=== PATIENT | female | born 1985 | race Caucasian/White ===

== ENCOUNTER 2023-02-10 09:30 | Outpatient (RCR) | payer OTHER, SELFPAY ==
--- NOTE | 2023-02-07 14:10 | PC.NURSE ---
In- 0940 Out- 1140 Reason for visit: Latch issues and low milk supply History: mother delivered at a hospital in [place], [place]. Mother chose to come to [facility] related to it is closer to where she lives and the chosen [facility]. Mother states she was admitted for decreased movement, a decision was made to induce labor, baby's heart rate went down and after a 36 hour labor mother had an emergent section performed. Mother has a history of blood clots and was on Lovenox for a while. Mother has had hypothyroidism in the past but is not on medication at this time and states she has been good for awhile. Mother also states she worked with while inpatient. This is the feeding history over the last 24 hours. Mother breastfed 6 times, pumped 3 times and bottle fed 2 times (2oz). This is the output over the last 24 hours. has had 8 pees and 1 stool. Mother states infant did not poop for the 17th and 18th, then when he did finally poop it was a lot and all over. Mother denies green poop and states it is yellow seedy. History: will be 3 months old on Friday the and demonstrates alert behaviors that indicate that he is aware of the RN in the room. He looks around the room and is content. He appears to be well nourished and demonstrated appropriate behaviors for his age. Complete history is unclear as parents have limited information. did have separation after the section from mother. There was a weight of 7-4 and a drop in weight to 6-15. Infant was past weight at 21 days after at 8-2. last fed at 0720. Observations: Mother lays the on the david pillow and allows her to latch to the breast;however, infant doesn't latch deeply or effectively. Infant doesn't have negative suction to mother's breast. After this visual, RN demonstrates to mother how to sandwich hold her right breast and bring her infant in closer and latch deeply. Infant attempts and after a few minutes pulls back and resist latching deeply. placed upright on mother's chest and is calmed by mother while we discuss the education and questions. After is calm, RN steps back as to not distract the infant that is very alert, aware and well-nourished. Mother latches to the left breast using the sandwich technique and infant resists. There were a few more attempts and became upset so mother places infant upright and soothes. RN leaves the room to go get Pocket guide and encourages mother to attempt to latch infant deeply once is calm. When RN comes back to the room infant is latched effectively to the left breast using cross cradle positioning and mother used the sandwich hold to latch deeply. weight: 7-4 Lowest weight: 6-15 Last weight: 11.7 Saturday 02/03 Pre-feed weight: 5211 (11.8) 02/07 Post-feed weight: 5271 (60mls transferred) Discussed with mother need 2.6 oz every 2 hours. If is eating less frequently then the needs increase according to the need to gain weight. If is 8 times in 24 hours the need to supplement 3.5-4oz with the understanding that a good effective session on both breast the can transfer 60mls. We discussed that it can vary throughout the day and less milk may be expressed later in the day. Plan of Care: Mother was instructed to breastfeed 8-12 times a day (24 hour period) Mother voiced understanding what an effective looked like, felt like and could identify swallowing versus non nutritive sucking education was continued. If infant is effectively 8 times in 24 hours, then supplement 2-3 oz after . If infant is effectively 12 times in a day, then supplement 1-2 oz. If infant is bottle feeding only, then bottle feed 3-4 oz at least 8 times a day. Mother was instructed to feed until co
== END 2023-05-08 23:59 | disposition home or self-care (01) ==
LOC: ANHOBOP 09:30
PROVIDERS: PCP Internal Medicine; Visit Provider Pediatrics
DX: Z39.1 Encounter for care and examination of lactating mother (principal)
CPT/HCPCS: 99204; 99213; G0463

== ENCOUNTER 2023-05-02 18:16 | Emergency (ER) | payer OTHER, SELFPAY ==
--- NOTE | ~2023-05-02 | CT_ITS ---
EXAMINATION: CT abdomen pelvis w con DATE: 05/02/2023 19:34 INDICATION: RUQ PAIN SINCE YESTERDAY MORNING. TECHNIQUE: Computed tomography (CT) of the abdomen and pelvis was performed with 100 mL Omnipaque-350 intravenous contrast. Automated exposure control and iterative reconstruction technique were employe d. The dose-length product was 1452.25 mGy-cm. COMPARISON: None. FINDINGS: Lower thorax: Unremarkable Liver: Diffuse fatty infiltration. Enlarged. Biliary/Gallbladder: Gallbladder is collapsed. No bile duct dilation. Pancreas: Fatty infiltration. Spleen: Normal. Adrenals:No mass. Kidneys: No suspicious mass, obstructing stone, or hydronephrosis. GI tract: No small or large bowel dilation. Normal appendix. Mesentery/Peritoneum: No ascites, mass, or free air. Retroperitoneum: No mass. Pelvis: Pelvic organs are within normal limits. Soft Tissues: Soft tissues and body wall unremarkable. Bones: No acute osseous finding. IMPRESSION: Hepatomegaly, with steatosis. The gallbladder is collapsed, without cholelithiasis or surrounding inflammatory change. Otherwise unremarkable CT abdomen and pelvis findings. Reviewed, dictated and finalized at location K. DRAFTER IMPRESSION: Hepatomegaly, with steatosis. The gallbladder is collapsed, without cholelithiasis or surrounding inflammator y change. Otherwise unremarkable CT abdomen and pelvis findings.
[2023-05-02 18:16] VITALS: BP 137/87; PULSE 74; RESP 16; TEMP 36.2; O2SAT 99
--- NOTE | 2023-05-02 18:37 | ED.ABDPAIN ---
HPI - Abdominal Pain General Chief Complaint: Abdominal Pain Stated Complaint: right upper abdominal pain Time Seen by Provider: 05/02/23 18:33 Source: patient Mode of arrival: ambulatory Limitations: no limitations History of Present Illness HPI narrative: Patient is a 37 year old female with a significant PMH that presents today with abdominal pain. The pain is located in the RUQ and has been going on since yesterday morning. She states she has had this aching type of pain in the past that comes and goes randomly but it normally goes away in a few hours. She says that this time it is not going away and is getting worse. The pain is mostly in the RUQ. She says she has been able to eat and drink still but does have a little nausea. She denies any systemic symptoms. She does have a known history of a fatty liver. MD elicited complaint: abdominal pain Pertinent past history: other (fatty liver (possibly GOMEZ)) Onset (ago): day(s) Pain Consistency: constant Location: diffuse and RUQ Severity: moderate Pain scale (0-10): 5 Quality: aching and dull Radiation: none Migration to: no migration Exacerbating factors: nothing Relieving factors: nothing Associated symptoms: nausea Related Data Patient : No Allergies Allergy/AdvReac Type Severity Reaction Status Date / Time COVID-19 (SARS-CoV-2) Allergy Unknown Verified 05/02/23 18:35 vaccine, sondra Penicillins Allergy Unknown Verified 05/02/23 18:35 Sulfa (Sulfonamide Allergy Unknown Verified 05/02/23 18:35 Antibiotics) tetracycline Allergy Unknown Verified 05/02/23 18:35 Review of Systems Review of Systems: All systems reviewed & are unremarkable except as noted in HPI and below Constitutional: Constitutional: Reports no additional constitutional complaints Eyes: Eyes: Reports no additional eye complaints ENT: Reports system reviewed and no additional complaints, except as documented Cardiovascular: Cardiovascular: Reports no additional cardiovascular complaints Respiratory: Respiratory: Reports no additional respiratory complaints Gastrointestinal: Gastrointestinal: Reports abdominal pain Genitourinary: Genitourinary: Reports no additional female genitourinary complaints Musculoskeletal: Musculoskeletal: Reports no additional musculoskeletal complaints Integumentary/Breasts: Skin/Breast: Reports system reviewed and no additional complaints, except as docu Neurologic: Reports system reviewed and no additional complaints, except as documented Psychiatric: Psychiatric: Reports no additional psychiatric complaints Endocrine: Endocrine: Reports no additional endocrine complaints Hematologic/Lymphatic: Hematologic/Lymphatic: Reports no additional hematologic/lymphatic complaints Allergic/Immunologic: Allergic/Immunologic: Reports no additional allergic/immunologic complaints Exam Const: General: healthy appearing Nutritional Appearance: well nourished Orientation/consciousness: patient oriented x3 Limitations: no limitations HENMT: Head: normal to inspection Ears: external ears normal Face/Nose/Sinus: Normal external nose present Face and sinus: normal facial exam Mouth: Yes Normal oral and palatal mucosa present Teeth and gingiva: dentition normal Throat: posterior oropharynx normal Eyes: Conjunctivae: conjunctivae normal Pupils: Equal, round and reactive pupils present EOM: EOMs intact bilaterally Direct Ophthalmoscopy: no photophobia Neck: Neck: normal visual inspection Chest: Chest palpation & inspection: normal inspection of the chest Resp: Effort & Inspection: normal respiratory effort Auscultation: clear to auscultation bilaterally Cardio: Rate: regular rate Rhythm: regular rhythm GI: GI Palp: Yes Soft to palpation Auscultation: normal bowel sounds Rectal Exam: normal sphincter tone Back/Spine/Pelvis: Back: no CVA tenderness Skin: General skin exam: normal color Neuro: General: patient oriented x3 Cranial nerves: Yes N
[2023-05-02 18:50] LABS: Basophils Absolute Auto 0.04 K/mm3 (0.00-0.10); Basophils Percent Auto 0.6 % (0.0-1.0); Eosinophils Absolute Auto 0.16 K/mm3 (0.02-0.50); Eosinophils Percent Auto 2.5 % (1.0-6.0); Hematocrit 40.8 % (35.0-49.0); Hemoglobin 12.8 g/dL (12.0-15.0); Immature Granulocyte Absolute 0.01 K/mm3 (0.00-0.00); Immature Granulocyte Percent A 0.2 % (0.0-0.0); Lymphocytes Absolute Auto 2.59 K/mm3 (1.10-4.50); Lymphocytes Percent Auto 40.3 % (18.0-42.0); Mean Corpuscular HGB Conc 31.4 g/dL (32.0-36.0); Mean Corpuscular Hemoglobin 26.8 pg (27.0-31.0); Mean Corpuscular Volume 85.5 fL (78.0-102.0); Mean Platelet Volume 9.5 fl (9.2-11.8); Monocytes Absolute Auto 0.47 K/mm3 (0.10-0.90); Monocytes Percent Auto 7.3 % (2.0-11.0); Neutrophils Absolute Auto 3.2 K/mm3 (1.7-7.2); Neutrophils Percent Auto 49.1 % (50.0-70.0); Platelet Count Result 360 K/mm3 (150-420); Red Blood Count 4.77 M/mm3 (4.20-5.40); Red Cell Distribution Width 13.1 % (11.6-14.4); White Blood Count 6.4 K/mm3 (4.8-10.8)
--- NOTE | 2023-05-02 18:53 | PC.NURSE ---
attempt x2 , 1- left ac, 1 lft hand unsuccessful, report to john mueller.
[2023-05-02 18:56] LABS: Urine Pregnancy Test Negative
[2023-05-02 18:57] LABS: Pregnancy On Board Control Positive
[2023-05-02 19:00] LABS: Alanine Aminotransferase 29 U/L (14-59); Albumin Level 3.9 g/dL (3.4-5.0); Alkaline Phosphatase 106 U/L (46-116); Amylase 32 U/L (25-115); Anion Gap 10 mmol/L (8-16); Aspartate Amino Transferase 18 U/L (15-37); Bilirubin,Total 0.5 mg/dL (0.00-1.00); Blood Urea Nitrogen 17 mg/dL (7-18); Calcium 8.6 mg/dL (8.5-10.1); Carbon Dioxide 28 mmol/L (21-32); Chloride 102 mmol/L (98-108); Estimated CRCL calculation 108 ml/min; Estimated Glomerular Filt Rate > 60; Glucose 84 mg/dL (70-99); Lipase 30 U/L (16-77); Osmolality Calculated 290 mOsm/kg (285-295); Sodium 140 mmol/L (136-145)
[2023-05-02 19:05] LABS: Lactic Acid Reflex 0.9 mmol/L (0.4-2.0)
[2023-05-02] MEDS: SODIUM CHLORIDE 0.9% IV 1,000 ML 999 ML IV CONT (19:12)
[2023-05-02 20:13] VITALS: BP 114/64; PULSE 80; RESP 18; TEMP 36.5; O2SAT 99
== END 2023-05-02 20:19 | disposition home or self-care (01) ==
PROVIDERS: Emergency Provider Family Medicine; PCP Internal Medicine
DX: Q44.1 Other congenital malformations of gallbladder (principal); R10.11 Right upper quadrant pain
CPT/HCPCS: 36415; 74177; 80053; 81025; 82150; 83605; 83690; 85025; 96360; 99284; J7030; Q9967

== ENCOUNTER 2023-05-08 10:41 | Outpatient (CLI) | payer OTHER, SELFPAY ==
[2023-05-08 11:10] LABS: D Dimer 0.22 mg/L (0.19-0.50)
== END 2023-05-08 10:42 | disposition home or self-care (01) ==
LOC: CHSLAB 10:44
PROVIDERS: PCP Internal Medicine; Visit Provider Internal Medicine
DX: R60.0 Localized edema (principal)
CPT/HCPCS: 36415; 85380

== ENCOUNTER 2023-05-23 07:49 | Outpatient (CLI) | payer OTHER, SELFPAY ==
--- NOTE | ~2023-05-23 | NM_ITS ---
EXAMINATION: NM hepatobiliary wo pharm DATE: 05/23/2023 10:15 INDICATION: Right upper quadrant abdominal pain COMPARISON: 05/02/2023 TECHNIQUE: 4.9 mCi Tc-99m mebrofenin (Choletec) was administered intravenously. Scintigraphic images of the abdomen were obtained for one hour. At the 1 hour time point, the patient drank 8 oz Ensure, and imaging was continued for 60 minutes. Gallbladder ejection fraction was calculated by the technol ogist. FINDINGS: There is normal clearance of radiotracer from the blood pool. There is homogeneous tracer u ptake by the liver. Activity progresses to the bowel and gallbladder. The gallbladder ejection fract ion (GBEF) is 68%. Note that with this technique, normal GBEF >= 33%. IMPRESSION: 1. Normal hepatobiliary scan Reviewed, dictated and finalized at location A. OR C WEB DEVELOPER
== END 2023-05-23 07:50 | disposition home or self-care (01) ==
PROVIDERS: PCP Internal Medicine; Visit Provider Internal Medicine
DX: R10.11 Right upper quadrant pain (principal)
CPT/HCPCS: 78226; A9537

== ENCOUNTER 2023-06-20 13:28 | Outpatient (CLI) | payer OTHER, SELFPAY ==
--- NOTE | ~2023-06-20 | CT_ITS ---
EXAMINATION: CT soft tissue neck w con DATE: 06/20/2023 14:58 INDICATION: Left-sided neck pain and swelling and acute swelling under the tongue TECHNIQUE: Computed tomography (CT) of the neck was performed with 75 mL Omnipaque-350 intravenous co ntrast. Automated exposure control and iterative reconstruction technique were employed. The dose-david gth product was 558.50 mGy-cm. COMPARISON: None FINDINGS: Visualized portions of the orbits are normal. The visualized paranasal sinuses are clear. Visualized sinuses and mastoid aircells are well aerated. Parotid glands are normal and symmetric. There is asym metric subtle hyperemia and enlargement of the left submandibular gland when compared with the right which suggests a sialoadenitis. Thyroid gland is unremarkable. There are scattered normal-sized lymph nodes in the neck, no lymphadenopathy. No masses or abnormal fluid collections identified. The vasc ulature is patent and normal in caliber. Airway is unremarkable. Normal epiglottis. Superior mediasti num is unremarkable. Lung apices are normal. Bones are unremarkable. IMPRESSION: 1. Subtle enlargement and hyperemia of the left submandibular gland when compared with the right susp icious for sialadenitis. Reviewed, dictated and finalized at location B. HING COACH IMPRESSION: 1. Subtle enlargement and hyperemia of the left submandibular gland when compar ed with the right suspicious for sialadenitis.
[2023-06-20 13:57] LABS: Basophils Absolute Auto 0.02 K/mm3 (0.00-0.10); Basophils Percent Auto 0.4 % (0.0-1.0); Eosinophils Absolute Auto 0.15 K/mm3 (0.02-0.50); Hematocrit 42.7 % (35.0-49.0); Hemoglobin 13.1 g/dL (12.0-15.0); Immature Granulocyte Absolute 0.01 K/mm3 (0.00-0.00); Immature Granulocyte Percent A 0.2 % (0.0-0.0); Lymphocytes Absolute Auto 2.16 K/mm3 (1.10-4.50); Lymphocytes Percent Auto 42.9 % (18.0-42.0); Mean Corpuscular HGB Conc 30.7 g/dL (32.0-36.0); Mean Corpuscular Hemoglobin 25.7 pg (27.0-31.0); Mean Corpuscular Volume 83.7 fL (78.0-102.0); Mean Platelet Volume 9.1 fl (9.2-11.8); Monocytes Absolute Auto 0.39 K/mm3 (0.10-0.90); Monocytes Percent Auto 7.7 % (2.0-11.0); Neutrophils Absolute Auto 2.3 K/mm3 (1.7-7.2); Neutrophils Percent Auto 45.8 % (50.0-70.0); Platelet Count Result 330 K/mm3 (150-420)
[2023-06-20 14:22] LABS: Anion Gap 7 mmol/L (8-16); Blood Urea Nitrogen 16 mg/dL (7-18); Carbon Dioxide 31 mmol/L (21-32); Chloride 102 mmol/L (98-108); Estimated Glomerular Filt Rate > 60; Glucose 80 mg/dL (70-99); Osmolality Calculated 290 mOsm/kg (285-295); Potassium 4.1 mmol/L (3.5-5.1); Sodium 140 mmol/L (136-145)
== END 2023-06-20 13:29 | disposition home or self-care (01) ==
PROVIDERS: PCP Internal Medicine; Visit Provider Internal Medicine
DX: R59.0 Localized enlarged lymph nodes (principal)
CPT/HCPCS: 36415; 70491; 80048; 85025; Q9967

== ENCOUNTER 2023-08-14 16:40 | Outpatient (CLI) | payer OTHER, SELFPAY ==
--- NOTE | ~2023-08-14 | XR_ITS ---
EXAMINATION: XR chest 2V DATE: 08/14/2023 17:20 INDICATION: Cough. TECHNIQUE: Frontal and lateral views of the chest were obtained. COMPARISON: CT abdomen and pelvis 05/02/2023 FINDINGS: There is no pneumonia, pleural effusion, or pneumothorax. The heart size is normal. IMPRESSION: 1. No acute cardiopulmonary disease. Reviewed, dictated and finalized at location E.
[2023-08-14 17:04] LABS: Basophils Absolute Auto 0.04 K/mm3 (0.00-0.10); Basophils Percent Auto 0.4 % (0.0-1.0); Eosinophils Absolute Auto 0.12 K/mm3 (0.02-0.50); Eosinophils Percent Auto 1.1 % (1.0-6.0); Hematocrit 40.6 % (35.0-49.0); Hemoglobin 12.8 g/dL (12.0-15.0); Immature Granulocyte Absolute 0.03 K/mm3 (0.00-0.00); Immature Granulocyte Percent A 0.3 % (0.0-0.0); Lymphocytes Percent Auto 20.2 % (18.0-42.0); Mean Corpuscular HGB Conc 31.5 g/dL (32-36); Mean Corpuscular Hemoglobin 26.4 pg (27.0-31.0); Mean Corpuscular Volume 83.7 fL (78.0-102.0); Mean Platelet Volume 8.9 fl (9.2-11.8); Monocytes Absolute Auto 0.64 K/mm3 (0.10-0.90); Monocytes Percent Auto 5.9 % (2.0-11.0); Neutrophils Absolute Auto 7.87 K/mm3 (1.70-7.20); Neutrophils Percent Auto 72.1 % (50.0-70.0); Platelet Count Result 350 K/mm3 (150-420); Red Blood Count 4.85 M/mm3 (4.20-5.40); Red Cell Distribution Width 13.2 % (11.6-14.4); White Blood Count 10.9 K/mm3 (4.8-10.8)
== END 2023-08-14 16:41 | disposition home or self-care (01) ==
PROVIDERS: PCP Internal Medicine; Visit Provider Internal Medicine
DX: R05.9 Cough, unspecified (principal)
CPT/HCPCS: 36415; 71046; 85025

== ENCOUNTER 2024-04-02 20:19 | Emergency (ER) | payer OTHER, SELFPAY ==
[2024-04-02 20:20] VITALS: BP 133/99; PULSE 87; RESP 18; TEMP 36.3; O2SAT 99
--- NOTE | 2024-04-02 20:39 | ED.SKABFB ---
HPI - Skin/Abscess/Foreign Bdy General Chief complaint: Skin/Abscess/Foreign Body Stated complaint: breast pain- pumping Time Seen by Provider: 04/02/24 20:24 Source: patient Mode of arrival: ambulatory Limitations: no limitations History of Present Illness HPI narrative: Patient is a 38-year-old female with significant past medical history presents today for possible mastitis. Patient believes that she might have mastitis and a left breast. She is and pumping for 17 months. She says that she is starting to have some pain on the left side of the left breast. She says she does not think there is much redness but it is starting to become a little bit painful. She denies any fevers or systemic symptoms. She says she is trying to wean off breast-feeding and now is only pumping once a day. MD complaint: other ( Painful left nipple) Onset (ago): day(s) Tetanus up to date: yes Severity: moderate Severity scale (1-10): 4 Quality: aching and sharp Pain Consistency: intermittent Relieving factors: none Exacerbating factors: none Context: none Associated symptoms: denies other symptoms Treatments prior to arrival: none Related Data Home Medications ?Medication ?Instructions ?Recorded ?Confirmed ?Last Taken ?Type albuterol sulfate 90 mcg/actuation inhalation PRN 04/02/24 Unknown History aerosol inhaler azithromycin 250 mg tablet mg 04/02/24 04/02/24 History Allergies Allergy/AdvReac Type Severity Reaction Status Date / Time COVID-19 (SARS-CoV-2) Allergy Unknown Verified 05/02/23 18:35 vaccine, sondra Penicillins Allergy Unknown Verified 05/02/23 18:35 Sulfa (Sulfonamide Allergy Unknown Verified 05/02/23 18:35 Antibiotics) tetracycline Allergy Unknown Verified 05/02/23 18:35 Review of Systems Review of Systems: All systems reviewed & are unremarkable except as noted in HPI and below Constitutional: Constitutional: Reports no additional constitutional complaints Eyes: Eyes: Reports no additional eye complaints ENT: Reports system reviewed and no additional complaints, except as documented Cardiovascular: Cardiovascular: Reports no additional cardiovascular complaints Respiratory: Respiratory: Reports no additional respiratory complaints Gastrointestinal: Gastrointestinal: Reports no additional gastrointestinal complaints Genitourinary: Genitourinary: Reports no additional female genitourinary complaints Musculoskeletal: Musculoskeletal: Reports no additional musculoskeletal complaints Integumentary/Breasts: Skin/Breast: Reports as per HPI and Reports breast pain Neurologic: Reports system reviewed and no additional complaints, except as documented Psychiatric: Psychiatric: Reports no additional psychiatric complaints Endocrine: Endocrine: Reports no additional endocrine complaints Hematologic/Lymphatic: Hematologic/Lymphatic: Reports no additional hematologic/lymphatic complaints Allergic/Immunologic: Allergic/Immunologic: Reports no additional allergic/immunologic complaints Exam Const: General: healthy appearing Nutritional Appearance: well nourished Orientation/consciousness: patient oriented x3 HENMT: Head: normal to inspection Ears: external ears normal Face/Nose/Sinus: Normal external nose present Face and sinus: normal facial exam Eyes: Conjunctivae: conjunctivae normal Pupils: Equal, round and reactive pupils present EOM: EOMs intact bilaterally Neck: Neck: normal visual inspection Chest: Chest palpation & inspection: tenderness ( left nipple on the left side) Resp: Effort & Inspection: labored Auscultation: clear to auscultation bilaterally Cardio: Rate: regular rate Rhythm: regular rhythm GI: GI Palp: Yes Soft to palpation : General: Yes bladder normal to palpation Back/Spine/Pelvis: Back: no CVA tenderness Skin: General skin exam: normal color Rashes: no rashes Wounds: no wounds Neuro: General: patient oriented x3 Cranial nerves: Yes Nystagmus not present Extrem: General: normal to inspection Psych: Mental Status: mental status grossly normal Affect: normal affect Course Vital Signs Vital signs: Vital Signs Temperature 97.3 F L 04/02/24 20:20 Pulse Rate 87 04/02/24 20:20 Respiratory Rate 18 04/02/24 20:20 Blood Pressure 133/99 H 04/02/24 20:20 Pulse Oximetry 99 04/02/24 20:20 Oxygen Delivery Room Air 04/02/24 20:20 Temperature 97.3 F L 04/02/24 20:20 Pulse Rate 87 04/02/24 20:20 Respiratory Rate 18 04/02/24 20:20 Blood Pressure 133/99 H 04/02/24 20:20 Pulse Oximetry 99 04/02/24 20:20 Oxygen Delivery Room Air 04/02/24 20:20 MDM - Skin/Abscess/Foreign Bdy MDM Narrative Medical decision making narrative: patient thinks that she might have mastitis however looking at it and inspected the area and palpating there is of signs mastitis. There is though currently has again no dry skin and now erythema. No signs of mastitis whatsoever. However there probably is a clogged duct. Especially coming off of doing so much of the pumping to light once today. discussed with her to put cost on multiple times a day to help work up the clogged ducts. Differential Diagnosis Differential diagnosis: Likely other ( Block duct) Medical Records Attestation: I reviewed the patient's medical records. Lab Data Attestation: I reviewed the patient's lab results. Discharge Plan Discharge Clinical Impression: Occlusion of breast duct Patient Disposition: Home, Self-Care Condition: Stable Instructions: and Plugged Ducts (ED) Patient Language: Mongolian Follow-up/Referrals: UNKNOWN,DOCTOR [Non-Staff] - Time of Disposition: 20:59
[2024-04-02 21:02] VITALS: BP 130/85; PULSE 85; RESP 18; TEMP 36.8; O2SAT 100
--- OUTSIDE RECORDS SUMMARY | 2024-04-06 14:32 | XMS_ITS | Continuity of Care Document ---
Author Name [facility] Organization [facility] Care Team Providers Care Learning Consultant Name Role Phone [facility] Unavailable Unavailable Problems Combined list of problems from Department of Defense and Veterans Affairs facilities. It does not include entries that were removed or entered in error. Problem Status Onset Date Problem Type Date of Resolution Comments Source Patient Counseling: Inquiry & Counseling Active Condition [facility] drowsiness [Sx] Active Condition [facility] allergic rhinitis Active Condition [facility] bursitis trochanteric Active Condition [facility] upper respiratory infection acute Inactive Condition [facility] Contraceptives Active Condition [facility] limb pain Active Condition [facility] visit for: administrative purpose Inactive Condition [facility] visit for: issue repeat prescription Inactive Condition [facility] dermatitis Inactive Condition [facility] blurry vision Inactive Condition [facility] atopic dermatitis Inactive Condition [facility] Administrative Evaluation Services Inactive Condition [facility] dyshidrosis Inactive Condition [facility] visit for: screening exam STD Inactive Condition [facility] visit for: screening exam for malignant neoplasm cervix Inactive Condition [facility] routine gynecological exam Inactive Condition [facility] other specified viral disease Inactive Condition [facility] obesity Active Condition [facility] Other Physical Therapy Inactive Condition [facility] Medications Combined list of outpatient medications from Department of Defense and Veterans Affairs facilities.Medications provided include 1) outpatient medications from the last 15 months, and 2) patient-reported medications. Medication Details Route Status Patient Instructions Prescription Expires Prescription Number Last Dispense Date Ordering Provider Order Date Order Qty Source ALBUTEROL SULFATE HFA (albuterol sulfate), 90 MCG, HFA AER AD, INHALATION, [facility], 18 g CANISTER Active [id number] 2023 18 Pharmac y Data Transac tion Service Facilit y azithromyci n 250 mg oral tablet 0 total refill(s ) Discont inued 02/08/2020 No Facilit y Access CEPHALEXIN (CEPHALEXIN ), 750 MG, CAPSULE, ORAL, [facility], 20 ea. BOTTLE Active [id number] 2023 14 Pharmac y Data Transac tion Service Facilit y clindamycin 300 mg oral capsule 0 total refill(s ) Discont inued 02/08/2020 No Facilit y Access codeine-gua ifenesin 10 mg-100 mg/5 mL oral syrup codeine- guaifene sin 10 mg-100 mg/5 mL oral syrup Start Date: 03/24/19 Stop Date: 02/08/20 Status: Disconti nued Discont inued 02/08/2020 No Facilit y Access cyclobenzap rine 10 mg oral tablet cycloben zaprine 10 mg oral tablet Start Date: 04/30/19 Stop Date: 02/08/20 Status: Disconti nued Discont inued 02/08/2020 No Facilit y Access fluticasone 50 mcg/inh nasal spray fluticas one 50 mcg/inh nasal spray Start Date: 07/08/19 Stop Date: 02/08/20 Status: Disconti nued Discont inued 02/08/2020 No Facilit y Access FLUTICASONE -SALMETEROL (fluticason e propionate/ salmeterol xinafoate), 250-50 MCG, BLST W/DEV, INHALATION, [facility]/ [facility], 60 ea. BLIST PACK Active [id number] 4 2023 60 Pharmac y Data Transac tion Service Facilit y LEVOFLOXACI N (levofloxac in), 750 MG, TABLET, ORAL, [facility], 20 ea. BOTTLE Active [id number] 2023 7 Pharmac y Data Transac tion Service Facilit y METHYLPREDN ISOLONE (METHYLPRED NISOLONE), 4 MG, TAB DS PK, ORAL, [facility], 21 ea. BLIST PACK Active [id number] 2023 21 Pharmac y Data Transac tion Service Facilit y Xarelto 15 mg tablet See Rx Instruct ions, # 42 EA, 0 total refill(s ), Hard Stop Complet ed 12/05/2021 42.0 Ambulat ory Pharmac y Xarelto 20 mg tablet See Rx Instruct ions, Oral, # 9 EA, 0 total refill(s ), Hard Stop Oral (given by mouth) Complet ed 12/05/2021 9.0 Ambulat ory Pharmac y Allergies, Adverse Reactions, Alerts Combined list of allergies from Department of Defense and Veterans Affairs facilities. It does not include entries that were removed or entered in error. Substance Category Reaction Severity Reaction type Status Date Reported Comments Source penicillins Propensity to adverse reactions to substance Rash Active 3 [facility] PENICILLINS {Cla } Drug allergy (disorder) Rash [facility] [place] sulfa drugs Propensity to adverse reactions to substance Vomiting Active 3 [facility] SULFA-DRUGS {Cla } Drug [facility] (disorder) [facility] Propensity to adverse reactions to substance Vomiting Active 3 [facility] TETRACYCLINE (TETRACYCLINE ) Drug allergy (disorder) Vomiting active 3 [facility] Alisha [place] Immunizations Combined list of available immunizations from the Department of Defense and Veterans Affairs facilities. 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 Vital Sign Value Date Comments Source No data available for this section Ambulatory Pharmacy Encounters Combined list of: 1) Encounters from Department of Veterans Affairs facilities going back up to thelast 18 months. 2) Encounters from the Department of Defense facilities going back up to 280 months. Location Location Details Encounter Type Encounter Number Reason For Visit Attending Provider ADM Date DC Date Status Disposition Source [facility]) OUTPATIENT [id number] BRYCE JERNIGAN 06/13 Released w/o Limitations [facility] Phys[facility] ) [facility] OUTPATIENT [id number] CALEB GUNTER 07/03 Released w/o Limitations [facility] ) [facility] OUTPATIENT [id number] KEYANNA GIL 07/07 Released w/o Limitations [facility] ) [facility] OUTPATIENT [id number] KEYANNA GIL 07/09 Released w/o Limitations [facility] ) [facility] [facility] [place] OUTPATIENT [id number] new pt NAOMI THORPE 12/03 Released w/o Limitations [facility] [place] [facility] [facility] [place] OUTPATIENT [id number] [facility]/KYRA David 12/04 Released w/o Limitations [facility] [place] [facility] [facility] [place] OUTPATIENT [id number] bilat hand rash ILA NAOMI W 01/21 Released w/o Limitations [facility] [place] [facility] [facility] [place] [id number] Notes Entered by: MARY BETH MACKENZIE 04 Feb [id number] ------- ------- ------- ------- -- BLURRY VISION BOTH EYES/WO RSENING ECZEMA ANDERSON FAN 02/05 Released w/o Limitations [facility] [facility] [place] OUTPATIENT [id number] f/u [facility] KYRA MIDDLETON 02/08 Released w/o Limitations [facility] [place] [facility] [facility] [place] TELE CONSULT [id number] Notes Entered by: Fatmata BENITEZ 01 Mar 2013 1018 ------- ------- ------- ------- -- Med Request PATRICIA AKBAR 03/01 [facility] [place] [facility] [facility] [place] TELE CONSULT [id number] Notes Entered by: MAXI POSADA 16 Mar 2013 1402 ------- ------- ------- ------- -- F/U NO SHOW 26NOV MAXI POSADA 03/16 [facility] [place] [facility] [facility] [place] OUTPATIENT [id number] lt hip pain NAOMI THORPE 03/26 Released w/o Limitations [facility] [place] [facility] OUTPATIENT [id number] limb pain MARTIN VALENCIA 04/23 Released w/o Limitations [facility]) [facility] [facility] [place] OUTPATIENT [id number] product sofiya cough x4days/ back/hi p pain/re fill BCP NAOMI THORPE W 06/15 Released w/o Limitations [facility] [place] [facility] Ref[place] TELE CONSULT [id number] Notes Entered by: Reese MORRIS 25 Jun 2013 0919 ------- ------- ------- ------- -- DERM Order#: [id number] BRANDON MORRIS 06/25 [facility] [facility] [place] OUTPATIENT [id number] f/u bronchi tis NAOMI THORPE W 07/02 Released w/o Limitations [facility] [place] [facility] Ref[place] TELE CONS[place] [id number] Notes Entered by: STEVEN HADDAD 20 Jul 2013 0832 ------- ------- ------- ------- -- DERMATO OSCAR GUPTA 07/20 [facility] [facility] [place] OUTPATIENT [id number] PHYS NICKI SIMON([facility] 08/13 Released w/o Limitations [facility] [place] [facility] [facility] [place] TELE CONSULT [id number] Notes Entered by: LAUREN OG 06 Sep 2013 1529 ------- ------- ------- ------- -- Lab results PATRICIA AKBAR 09/06 [facility] [place] [facility] Ref[place] TELE CONSULT [id number] Notes Entered by: ARI HARTMAN 09 Nov 2013 1451 ------- ------- ------- ------- -- Order#: [id number] SLEEP STUDY FOLLOW UP YENIFER HARTMAN 11/09 [facility] TELE CONSULT [id number] Notes Entered by: IMAN GARCIA 12 Nov 2013 1434 ------- ------- ------- ------- -- [facility] ASTHMA/ BRONCHI TIS DOS 2013 ROSELIA GARCIA 11/12 [facility] [facility] [place] OUTPATIENT [id number] R SHOULDE R PAIN X 4WK NICKI SIMON([facility] 11/17 Released w/o Limitations [facility] [place] [facility] Ref[place] TELE CONSULT [id number] Notes Entered by: ARI HARTMAN 16 Feb 2014 1438 ------- ------- ------- ------- -- FAMILY DERMATO LOGY SKIN EXAMINA TION/FO LLOWUP DERMATI TIS DOS [id number] YENIFER HARTMAN 02/16 [facility] [facility] [place] OUTPATIENT [id number] WWE/NICKI JERONIMO([place]) 03/09 Released w/o Limitations [facility] [place] [facility] OUTPATIENT [id number] OBESITY CHAIM FERNANDEZ([place]) 03/21 Released w/o Limitations [facility] Ref[place] TELE CONSULT [id number] Notes Entered by: DEVANARI Isidoro 26 May 2014 1138 ------- ------- ------- ------- -- [facility] SLEEP STUDY CONSULT DOS [id number] YENIFER HARTMAN 05/26 Other Not Elsewhere Classified [facility] [facility] [place] OUTPATIENT [id number] sore throat, cough, loss of voice NICKI SIMON([place]) 05/30 Released w/o Limitations [facility] [place] [facility] [facility] [place] TELE CONSULT [id number] Notes Entered by: LAUREN OG OLE 31 May 2014 1117 ------- ------- ------- ------- -- Lab results SIGIFREDO BATRES 05/31 [facility] [place] [facility] [facility] [place] TELE CONSULT [id number] Notes Entered by: LAUREN OG OLE 07 Jun 2014 0736 ------- ------- ------- ------- -- STEW ESTHER Patterson 06/07 Other Not Elsewhere Classified [facility] [place] [facility] [facility] [place] TELE CONSULT [id number] Notes Entered by: LAUREN OG OLE 01 Jul 2014 1513 ------- ------- ------- ------- -- ESTHER Katz 07/01 Other Not Elsewhere Classified [facility] [place] [facility] Ref[place] TELE CONSULT [id number] Notes Entered by: Jordan BUENO 07 Jul 2014 1124 ------- ------- ------- ------- -- DERMATO LOGY FOLLOW UP RESULTS DOS 5 SUSHILA BUENO 07/07 Other Not Elsewhere Classified [facility] OUTPATIENT [id number] Childbi rth class ROBERT GOETZ E 06/26 Released w/o Limitations [facility] [id number] Childbi rth Educati on ROBERT GOETZ E 06/29 Released w/o Limitations [facility] OUTPATIENT [id number] Childbi rth Educati on ROBERT GOETZ E 07/09 Released w/o Limitations [facility] OUTPATIENT [id number] Childbi rth Educati on ROBERT GOETZ E 07/13 Released w/o Limitations [facility] OUTPAT[facility] [id number] Notes Entered by: CALLY WALLISNICKY FRANKELLYNDSAY Bland 28 Jul 2015 1432 ------- ------- ------- ------- -- Childbi rth Educati on class 1 GOETZ ROBERT Edwina 07/27 Released w/o Limitations [facility] OUTPATIENT [id number] Childbi rth Educati on Class 4 ROBERT GOETZ E 08/29 [facility] Limitations [facility] Procedures Combined list of: 1) Procedures from Department of Veterans Affairs facilities going back up to thelast 18 months, not all VA non-surgical procedures are included; 2) All procedures from the Department of Defense facilities. Procedure Procedure Type Code Date Perfomer Comments Sourc e Physician Supervised Group Educational Services Physician Supervised [facility] Educational Services [phone] GOETZ, ROBERT Edwina [facility] Physician Supervised Group Educational Services Physician Supervised [employer] Educational Services [phone] GOETZPREM OSEGUERAEEN Edwina [facility] Physician Supervised [facility] Educational Services Physician Supervised [facility] Educational Services [phone] GOETZ, ROBERT Edwina [facility] Physician Supervised [facility] Educational Services Physician Supervised [employer] Educational Services [phone] GOETZNICKY OSEGUERAHLEEN Edwina [facility] Physician Supervised [facility] Educational Services Physician Supervised [employer] Educational Services [phone] GOETZ, ROBERT Edwina [facility] Physician Supervised Group Educational Services Physician Supervised Group Educational Services [phone] Jose F GOETZ ROBERT Edwina [facility] Therapy Initial A e ment And Intervention Each 15 Minutes Medical Nutrition Therapy Initial Assessment And Intervention Each 15 Minutes [phone] CHAIM FERNANDEZ([place]) Obesity related to food and nutrition knowledge deficit as evidenced by her diet recall and BMI of 37. Nutrition Rx: balanced meal plan, 1500 calories/day to promote 1/2-1# per week. Initial goal of losing 10#, 5% weight loss. Education on weight loss strategies through meal planning, timing of meals, plate method of portioning, healthy snacks, serving sizes and numbers, and ways to increase her fruit and vegetable intake. Nutrition Plan: --avoid skipping of meals, goal of 3 meals and 2-3 smaller snacks --bring portable, healthy snacks to work, add vegetables to her lunch, snack on veggies end of her day so she isn't so hungry when getting home from work. --avoid the late night fast food. Encouraged her to talk with her about meal planning ideas --30 minutes of exercise 5x/wk Temi verbalized understanding but still finds difficulty with nutrition changes given her very busy job. Encouraged her to try changes because she actually may feel less tired with more balance in ther diet. [facility] Non-Physician Phone Call To Patient/Provide r Brief (5-10min) Non-Physician Phone Call To Patient/Provide r Brief (5-10min) [phone] PATRICIA AKBAR [facility] Non-Physician Phone Call To Patient/Provide r Brief (5-10min) Non-Physician Phone Call To Patient/Provide r Brief (5-10min) [phone] MAXI POSADA [facility] Screening papanicolaou smear; obtaining, preparing and conveyance of cervical or vaginal smear to laboratory 013 KYRA [place] DoD PT A e ment Kinetic Training PT Assessment Kinetic Training [phone] JESSE VIDAL DoD A isted Exercises For ROM Assisted Exercises For ROM [phone] JESSE VIDAL DoD PT A e ment Kinetic Training PT Assessment Kinetic Training [phone] JESSE VIDAL LDavid DoD A isted Exercises For ROM Assisted [place] [phone] JESSE VIDAL DoD PT A e ment Kinetic Training PT Assessment Kinetic Training [phone] JESSE VIDAL DoD A isted Exercises For ROM Assisted [place] [id number] JESSE VIDAL [facility] Physical Therapy Service Evaluation Physical Therapy Service Evaluation [phone] BRYCE JERNIGAN [facility] THERAPEUTIC ACTIVITIES, DIRECT (ONE-ON-ONE) PATIENT CONTACT (USE OF DYNAMIC ACTIVITIES TO IMPROVE FUNCTIONAL PERFORMANCE), EACH 15 MINUTES [facility] THERAPEUTIC ACTIVITIES, DIRECT (ONE-ON-ONE) PATIENT CONTACT (USE OF DYNAMIC ACTIVITIES TO IMPROVE FUNCTIONAL PERFORMANCE), EACH 15 MINUTES [facility] THERAPEUTIC ACTIVITIES, DIRECT (ONE-ON-ONE) PATIENT CONTACT (USE OF DYNAMIC ACTIVITIES TO IMPROVE FUNCTIONAL PERFORMANCE), EACH 15 MINUTES [facility] THERAPEUTIC PROCEDURE, 1 OR MORE AREAS, EACH 15 MINUTES; THERAPEUTIC EXERCISES TO DEVELOP STRENGTH AND ENDURANCE, RANGE OF MOTION AND FLEXIBILITY [facility] PHYSICAL THERAPY EVALUATION [facility] PHYS/OTH QUALIFIED HEALTH MOVING VAN DRIVER QUALIFIED,EDUCA TINO,TRAIN,LICE NSRADHA/REGULATIO N (WHEN APPLICABLE) EDUC SER RENDERED TO PATS IN A GRP SETTING (EG,,OB ESITY,OR DIABETIC INSTRUCT) 016 [facility] PATIENT EDUCATION, NOT OTHERWISE CLASSIFIED, NON-PHYSICIAN PROVIDER, GROUP, PER SESSION 016 [facility] PHYS/OTH QUALIFIED HEALTH MOVING VAN DRIVER QUALIFIED,EDUCA TION,TRAIN,LICE NSURE/REGULATIO N (WHEN APPLICABLE) EDUC SER RENDERED TO PATS IN A GRP SETTING (EG,,OB ESITY,OR DIABETIC INSTRUCT) 016 [facility] PHYS/OTH QUALIFIED HEALTH MOVING VAN DRIVER QUALIFIED,EDUCA TION,TRAIN,LICE NSURE/REGULATIO N (WHEN APPLICABLE) EDUC SER RENDERED TO PATS IN A GRP SETTING (EG,,OB ESITY,OR DIABETIC INSTRUCT) 016 [facility] PHYS/OTH QUALIFIED HEALTH MOVING VAN DRIVER QUALIFIED,EDUCA TION,TRAIN,LICE NSURE/REGULATIO N (WHEN APPLICABLE) EDUC SER RENDERED TO PATS IN A GRP SETTING (EG,,OB ESITY,OR DIABETIC INSTRUCT) 016 [facility] MEDICAL NUTRITION THERAPY; INITIAL ASSESSMENT AND INTERVENTION, INDIVIDUAL, UAII-UH-ASSS WITH THE PATIENT, EACH 15 MINUTES 014 [facility] TELE ASSESS & MGT SRV PROV QUAL NONPHYS HLTH CARE PRO TO EST PAT,PARENT,GUAR D NOT ORIG REL ASSESS & MGT SRV PROV W/IN PREV 7 DAYS NOR LEAD ASSESS & MGT SRV/PX W/IN NXT 24 HR/SOON APT;5-10 MIN MED DIS 014 [facility] TELE ASSESS & MGT SRV PROV QUAL NONPHYS HLTH CARE PRO TO EST PAT,PARENT,GUAR D NOT ORIG REL ASSESS & MGT SRV PROV W/IN PREV 7 DAYS NOR LEAD ASSESS & MGT SRV/PX W/IN NXT 24 HR/SOON APT;5-10 MIN MED DIS 013 [facility] No data available for this section Ambulatory Pharmacy Social History Combined list of available smoking, tobacco, and other social history from Department of Defense and Veterans Affairs facilities. Social History Type Response Date Comment Sourc e This section is an empty soc ial history section. DoD Sexual Orientation Ambula tory Pharmacy Gender identity Ambulator y Pharmacy Female Ambulatory Pha rmacy Assessment and Plan Combined list of future care activities from Department of Defense and Veterans Affairs facilities (e.g., assessment and plan notes, appointments, orders, and referrals). Additional future care activities may be listed in the Plan of Care section. Result Assessment and Plan Date Source Assessment and Plan Extracted from:Title : PCS Screen Author: ESTELA GARCIA Date: 02/08/20 1.?Administrative statuses 34 yo Dependent presents for screening to [facility] ? Not seen in medical system. PMHX: 1. alpha 1 antitrypsin deficiency Monitored by GI and Pulm but stable not requiring any medications or interventions. ? Called patient who provided name and date of for confirmation. Patient's medical history and medications have been reviewed and updated. Phone conversation lasted approximately 10 minutes. Patient well versed in her screenings, but no interventions or specialty care needed at this time. She understands specialists are in [place] over an [place] drive. ? ? CLEARED FOR PCS ? Ordered: Unlisted Evaluation and Management Service [id number] ? 04/06/2024 Ambulatory Pharmacy Functional Status Combined list of recent functional and cognitive assessments recorded at Department of Defense and Veterans Affairs (VA).VA Functional Pine Measurement (FIM) Scale: 1 = Total Assistance (Subject = 0% +), 2 = Maximal Assistance (Subject = 25% +), 3 = Moderate Assistance (Subject = 50% +), 4 = Minimal Assistance (Subject = 75% +), 5 = Supervision, 6 = Modified Pine (Device), 7 = Complete Pine (Timely, Safely). Assessment Date/Time Source Assessment Type Assessment Skill Assessment Score Assessment Details No data available for this section
--- OUTSIDE RECORDS SUMMARY | 2024-04-06 14:32 | XMS_ITS | Data Portability ---
Author Organization [facility], [address] Neurology ([place]) Address [address] 4th [place] [address] Care Team Providers Care Automobile Service Writer Name Role Phone AKUA CHAND Stringed Instrument Tuner JUAN GOOD Childbirth And Infant Care Teacher JAMIE NOVAK Primary Care Provider [phone] Assessment Encounter Date Assessment Date Assessment LastModified by Organization Details LastModified Time 12/17/2023 12/17/2023 Ms. 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 ## Advanced hepatic steatosis and possibly early fibrosis -- The patient and I discussed the importance of diet and exercise in the management of fatty liver disease. She has a goal of losing about four pounds a month through diet and exercise. Unfortunately, she does not quality for GOMEZ trial we are running as she does not have enough fibrosis on her FibroScan and I informed her of that today. She will be due for an ultrasound at this time to follow up on her cavernous hemangioma and she will have lab work in about six months as well. I personally spent a total of 25 minutes on the patient on this date of service including both iedz-qu-sjtc and tfp-wisu-we-face time excluding any separately reportable services. dll [email or web address] Not available 12/17/2023 20:47:49 01/27/2024 01/27/2024 Annual exam. Pap smear obtained today with high risk HPV typing and patient will be informed of results. Instructed on monthly self breast exam. 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 Tdap was administered in 2022 and hepatitis C antibody testing was nonreactive in 2022. Due to papules to her vulva, I instructed for her to use antibacterial Dove bar soap when bathing. If no improvement she is to call the office. Informed patient that her exam was within normal limits today. Partners in prevention. Form provided to patient. Hereditary cancer risk assessment was performed today with normal findings. She is encouraged to update her non-gynecological preventative screenings and immunizations with her PCP. Instructed on diet and exercise to promote weight loss. Patient will return in 1 year for annual VISION TEACHER exam or sooner if needed. meena Not available 01/27/2024 22:27:46 Plan of Treatment Reminders Order Date Submit Date Provider Last Modified By Organization Details Last Modified Time Details Appointments Establish ed Patient 15.EST 2024 09:30A M Dr. Akua Chand Not available Not available Not available Annual Well Woman Visit 20.EST 2024 11:00A M Dr. Juan Good Not available Not available Not available Lab Pap test, slide(s), cervical 2023 024 [email or web address] 1 Sc Only - Mo Laboratory, [facility], [address], 03/10/2024 09:24:27 Referral None recorded. Procedures None recorded. Surgeries None recorded. Imaging US, abdomen, limited 2023 024 [email or web address] Sc Only - Sc Radiology, [address] [place] [address], [id number], 12/18/2023 09:51:23 MAMMO, screening , digital, bilateral 2023 024 PORTAL Sc Only - Sc Radiology, [facility] [place] [address], [id number], 03/30/2024 17:45:36 Medication Orders None recorded. Patient TargetsNo targets recorded. Patient InstructionsNo instructions recorded. Reason for Referral None Reported. Results Created Date Observation Date Name Description Value Unit Range Abnormal Flag Note LastModifiedBy Organization Detail LastModifiedTime 01/27/2001/27/2024 GYNEC OLOGI C CYTOL OGY REPOR T police manager/aC Perfo rmed at: [facility] Order ing Provi sherif: Eliezer tanner, Kasey n Marialuisa nt Name: TED TESFAYE RD Acczak fito #: [id number] /A ge/Ge nder: 984 (Age: 38) / F Proce dure Date: 2023 SP ECIME N RECEI ANEGLINA * SureP ath HPV DNA with Pap, Cervi [place]/E ndoce rvica l Speci men Adequ acy Satis facto ry for evalu ation Endoc ervic al cell/ trans forma tion zone compo nent prese nt Cytol ogic Diagn osis Negat maggie for intra epith elial lesio n or lisbet elder EL ECTRO NICAL LY VERIF IED BY ANGELA RAPP (ASCP ) 02/02 11:54 HPV Testi ng Date Order ed: 01/29 Date Repor iram: 02/01 14:48 Inter preta tion NEGAT MAGGIE for high risk types of HPV Test Infor matio n Human Papil lomav irus (HPV) testi ng perfo rmed using the Spike Diagn ostic s fredi 4800 HPV Test (Roch e Molec ular Syste ms, [facility] , [facility] ). The fredi HPV Test is a polym erase chain react ion (PCR) -base d DNA ampli ficat ion test that simul taneo usly ident ifies a morrison d resul t for 12 HR HPV types (HPV- 31, 33, 35, 39, 45, 51, 52, 56, 58, 59, 66 and 68) and indiv idual resul ts for HPV-1 6 and HPV-1 8. High Risk HPV types are assoc iated with cervi georgia carci noma and its predi sposi ng lesio ns: cervi [place]orgia atypi a and high grade squam ous intra epith elial lesio n (mode rate and sever e dyspl viral, carci noma in situ/ MILE 2 and MILE 3). The U.S. Food and Drug Admin istra tion (FDA) has appro angelina this test for use with SureP ath speci mens. The perfo rmanc e maxx cteri stics of this test were verif ied by the [facility] ([facility] [place] [facility] [place] [facility]). [facility] is autho rized under [facility]ini [place] [facility]ory Impro vemen t Amend ments (CLIA ) to perfo rm high- compl exity testi ng. Recom menda tion The Ameri can Cance r Socie ty (ACS) , Ameri can Socie ty for Colpo scopy and Cervi [place] Patho logy (ASCC P), and Ameri can Socie ty for Clini [place] Patho logy (ASCP ) recom mends that women who recei ve negat maggie resul ts on both tests shoul d be rescr eened no more frequ ently than every five years . HPV DNA posit maggie, cytol ogy negat maggie women shoul d be follo wed conse rvati vely repea ting BOTH tests in 12 month s. HPV-n egati ve ASC-U S shoul d be rescr eened with co-te sting in 3 years . All other Pap test inter preta tions shoul d be follo wed accor ding to ASCCP Conse nsus Guide lines for that parti cular inter preta tion. HPV testi ng is order ed as part of refle x testi ng as indic ated by the requi sitio n order and/o r as a resul t of addit ional testi ng reque sts submi tted by the physi sandy. EL ECTRO NICAL LY VERIF IED BY LILY ON T LILY ON, SCT([facility])C M 02/01 14:48 CL INICA L/MEN STRUA L HISTO RY Menst rual Hx: Trang l cycli ng Other Clini [place] Condi tions : ICD-1 0 Code: z12.4 The Pap test is a scree henry test for uteri ne cervi georgia cance r with an inher ent, but low false negat maggie rate. A biops y is recom neela d for any suspi cious or visib le lesio n. The patie nt shoul d be remin ded to consu lt a gynec ologi c care provi sherif if they exper ience any suspi cious signs or sympt oms regar dless of the Pap test resul t. END OF T Not Available Mo Only - [facility] [address], [place], [address], 02/03/2024 13:49:26 12/05/19 24 11/12/2022 imagi ng/di agnos tic resul t No observ ation record ed. [email or web address] Not Available 12/05/2023 00:18:31 12/26/19 24 12/26/2023 US, abdom en, limit ed [facility] [address] [place] [address] Teleph one [phone] Name: Ruth Brody [id number] Exam Date: 2023 Age: 38 Physic delon: Albina ojeda MD, Akua : 1985 Examin ation: US ABDOME N LIMITE D Examin ation: Limite d abdomi nal ultras ound. Clinic al Inform ation: Alpha 1 defici ency. Histor y of hepati c steato sis and a right hepati c nayeli ioma. Compar carol: MR liver Septem 2022. CT chest abdome n pelvis November 12, 2022. Techni que: Graysc patrick and color Dopple r images of the abdome n were obtain ed and review ed. Dopple r images of the main portal vein were obtain ed and review ed. Findin gs: LIVER: The liver is enlarg ed with hepati c steato sis. Nayeli ioma within hepati c segmen t 7 is not well-v isuali zed. No worris ome liver lesion . Smooth liver contou r. Main portal vein: Patent with antegr lamont flow. Bile ducts: Diffic ult to visual ize but do not appear dilate d. Common bile duct: 3 mm. GALLBL ADDER: Normal . No gallst ones, wall thicke henry, or perich olecys tic fluid. AORTA and INFERI OR VENA CAVA: Imaged portio ns are normal . ASCITE S: None. Impres fito: 1. Hepati c steato sis. 2. Previo usly identi fied nayeli ioma not well-v isuali zed. Electr onical ly signed in Welch cribe by: DUANE Ojeda MD on:12/25 10:36 AM cc: Page PAGE 1 of [facility] 1 [email or web address] Sc Only - Sc Radiology [address] [place] [address], [address], 12/26/2023 15:19:19 Result Notes None recorded. Problems Name Problem SNOMED Code Status Onset Date Resolution Date Notes Provider Name and Address Organization Details Recorded Time Steatosis of liver 191014520 Active 2023 Chris De León [facility] 4 11:42:13 Portal vein thrombosis 33447042 Active 2023 Tory Gibson [facility] 12:15:15 Problem Notes None recorded. Procedures Surgical History Date Name Laterality Status Provider Name and Address Organization Details Recorded Time 4 Date of Last Pap Smear completed Stefanie Castro [facility] 01/27/2024 13:06:11 4 SC Fibroscan completed Akua Chand MD [address] [place] [address], [phone], [facility] 12/19/2023 09:10:42 delivery completed Anila Harper [facility] 12/17/2023 11:23:58 biopsy of liver completed Inocencia Chan [facility] 01/23/2024 17:19:26 Imaging Results Imaging Date Name Status [facility]Modified by [facility] Details LastModified Time 11/12/2022 imaging/diag nostic result completed [email or web address] Information not available 12/05/2023 00:18:31 12/26/2023 US, abdomen, limited completed [email or web address] Sc Only - [facility] [address] [place] [address], [address], 12/26/2023 15:19:19 Procedure Notes None recorded. Medical Equipment None Reported. Allergies Allergen ID Allergen Name Allergen Category Reaction Reaction Severity Criticality Documentation Date Start Date Code Code System Note Provider Name and Address Organization Details Recorded Time [id number] 9864025n1 2824e Medicinal product containin g penicilli n and acting as antibacte rial agent (product) medicatio n Not available Not available Not available 05/21/20232022 81762 05 SNOMED Not Available Not Available Not Available [id number] 729284939 2487940c0 2824e Substance with sulfonami de structure and antibacte rial mechanism of action (substanc e) medicatio n Not available Not available Not available 05/21/20232022 29447 8003 SNOMED Not Available Not Available Not Available [id number] 598159019 9456041v9 2824e Medicinal product containin g tetracycl ine structure and acting as antibacte rial agent (product) medicatio n Not available Not available Not available 05/21/20232022 48520 1004 SNOMED Not Available Not Available Not Available [id number] 096661929 1116640v7 2824e Pfizer COVID Bival(12y up)(PF) medicatio n Not available Not available Not available 05/21/20232022 83080 8 UNK Not Available Not Available Not Available [id number] 103698782 0105639x7 2824e Product containin g gadoliniu m and/or gadoliniu m compound (product) medicatio n Not available Not available Not available 12/17/2023 56338 3008 SNOMED Not Available Not Available Not Available [id number] 325563058 8816605i0 2824e Iodinated contrast media (substanc e) medicatio n Not available Not available Not available 01/28/20242022 30107 2004 SNOMED Comme nt: React ion Date: 10 Jan 2023 Annot ation s: NORMA CROWDER 2022 11:21 AM GAdol inium , Multobyu =karo ce - rash on chest ; ; Not Available Not Available Not Available Medications Name Sig Start Date Stop Date Status Note LastModified by Organization Details LastModified Time fluticasone 250 mcg-salmetero l 50 mcg/dose blistr powdr for inhalation active Not Available Not Available N ot Available clindamycin HCl 300 mg capsule 12/16 completed Not Available Not Available Not Available azithromycin 250 mg tablet 12/16 completed Not Available Not Available Not Available levofloxacin 750 mg tablet 12/16 completed Not Available Not Available Not Available methylprednis olone 4 mg tablets in a dose pack 12/16 completed Not Available Not Available Not Available albuterol sulfate HFA 90 mcg/actuation aerosol inhaler active Not Available Not Available Not Available norethindrone (contraceptiv e) 0.35 mg tablet 12/16 completed Not Available Not Available Not Available Vitamin D3 3000 iu daily active Not Available Not Available No t Available multivitamin 1 tablet daily active Not Available Not Available No t Available cephalexin 750 mg capsule 12/16 completed Not Available Not Available Not Available Vitals Date Recorded Body weight Body mass index (BMI) Body height Heart rate Oxygen saturation Oxygen saturation in Arterial blood by Pulse oximetry Systolic blood pressure Diastolic blood pressure Provider Name and Address Organization Details Last Updated DateTime 4 779274. 7 g 45.5 kg/m2 162.56 cm 74 /min 97 % 97 % 132 mm[Hg] 78 mm[Hg] Anila Harper [facility] 4 11:26:49 Date Recorded Body height Provider Name an d Address Organization Details Last Updated DateTime 12/17/2023 162.56 cm Chris De León [facility] 12/17/2023 11:40:40 Date Recorded Body height Systolic blood pressure Diastolic blood pressure Provider Name and Address Organization Details Last Updated DateTime 01/27/2024 162.56 cm 122 mm[Hg] 78 mm[Hg] Stefanie Castro [facility] 01/27/2024 13:05:35 Social History Question Answer Notes LastModified by Organizat ion Details LastModified Time Tobacco Smoking Status Never Smoker Not Available Health Note 01/24/2024 13:47:12 Do You Have An Advance Directive? Yes [email or web address] Information not available 01/24/2024 What Is Your Level Of Alcohol Consumption? Occasional [email or web address] Information not available 01/24/2024 How Many Times Per Week Do You Consume Alcohol? Less Than 1 Time Per Week [email or web address] Information not available 01/24/2024 What Is Your Level Of Caffeine Consumption? Moderate [email or web address] Information not available 01/24/2024 What Is Your Code Status? Full Code [email or web address] Information not available 01/24/2024 Are You Currently Employed? 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 Less Than 1 Time Per Week [email or web address] Information not available 01/24/2024 Do You Have A Medical Power Of Credit Collections Analyst? Yes [email or web address] Information not available 01/24/2024 What Was The Date Of Your Most Recent Tobacco Screening? 01/27/2024 [email or web address] Information not available 01/24/2024 How Many Children Do You Have? 2 [email or web address] Information not available 01/23/2024 What Is Your Relationship Status? Jayden Smith III [email or web address] Information not available 01/24/2024 Do You Use Any Illicit Or Recreational Drugs? No [email or web address] Information not available 01/24/2024 Sex: Unknown Functional Status Question Answer Note LastModified by Organizat ion Details LastModified Time What is your exercise level? Occasional [email or web address] Information not available 01/24/2024 Mental Status None recorded. Family History Relationship Description Onset Age of this Age Resolved Age Notes LastModified by Organization Details LastModified Time Mother Phyllodes tumor of breast [email or web address] Not available 2023 17:20:38 Mother Family history of malignant neoplasm [email or web address] Not available 2023 13:47:11 Mother Chronic obstructive pulmonary disease [email or web address] Not available 2023 13:47:11 Mother Heart disease [email or web address] Not available 2023 13:47:11 Mother Hypertensive disorder [email or web address] Not available 2023 13:47:11 Brother Asthma [email or web address] Not available 1 13:47:11 Son Asthma [email or web address] Not available 13:47:11 Father Family history of malignant neoplasm [email or web address] Not available 2023 13:47:11 Father Chronic obstructive pulmonary disease [email or web address] Not available 2023 13:47:11 Paternal Grandfather Family history of malignant neoplasm [email or web address] Not available 2023 13:47:11 Maternal Grandfather Chronic obstructive pulmonary disease [email or web address] Not available 2023 13:47:11 Maternal Grandfather Cerebrovascu lar accident [email or web address] Not available 08/2023 13:47:11 Maternal Grandmother Chronic obstructive pulmonary disease [email or web address] Not available 2023 13:47:11 Maternal Grandmother Heart disease [email or web address] Not available 2023 13:47:11 Paternal Grandmother Heart disease [email or web address] Not available 2023 13:47:11 Medical History Condition Response Diabetes N Anxiety Disorder N Bleeding Disorder N Attention-deficit Hyperactivity Disorder N High Blood Pressure N Arthritis N Hyperlipidemia N Cancer N Stroke N Thyroid Problems Y Asthma Y Depression N COPD N Anemia Y Seizures N Heart Disease N Fibromyalgia N Deep Vein Thrombosis Osteoporosis N Kidney Disease N Gynecological History Statement/Question Response Menses Monthly Y Abnormal Pap N Date of Last Pap Smear 01/27/2024 Age at Menarche 11 Current Control Method Condoms Date of LMP 01/12/2024 Sexually Active? Y Obstetrics History GPAL:G 2 P 2 0 0 2 Type Value Multiple Births 0 Full Term 2 Induced 0 Spontaneous 0 Premature 0 Living 2 Ectopics 0 Total 2 Past Encounters Encounter ID Performer Location Encounter Start Date Encounter Closed Date Diagnosis/Indication Diagnosis SNOMED-CT Code Diagnosis ICD10 Code [id number] Akua Chand MD [facility] ([place]) [address] [place] [address] 12/17/2023 10:56:25 12/17/2023 12:59:35 Steatosis of liver 279219408 K76.0 Portal vei n thrombosis 62833754 I81 [id number] Akua Chand MD [address] [place] [address] 12/17/2023 11:28:49 12/17/2023 11:42:38 Steatosis of liver 758425733 K76.0 [id number] Yenifer Handy, APPEALS REVIEWER VETERAN, PATENT CLERK [address] O[facility] ([place]) [address] [place] [address] 01/27/2024 12:25:36 01/27/2024 13:31:44 Routine gynecologic examination 052802679 Z01.419 Breast britton plasm screening status 751860763 Z12.31 Sampling o f cervix for Papanicolaou smear 999209743 Z12.4 Health Concerns Section Related Observation LastModified by Organization Detai ls LastModified Time None Recorded Concern Status LastModified by Organization Details LastModified Time None Recorded Advance Directives Directive Y: Payers Encounter Date Sequence Insurance Name Policy Number Policy Demarco Covered Member ID Demarco Member ID Guarantor Name 12/17/2023 1 [place]AST - DOS PRIOR TO 2024 - [employer] () Jayden Smith [id number] Temi Smith 12/17/2023 1 [place] - DOS PRIOR TO 2024 - [employer]NA () Jayden Smith [id number] Temi Smith 01/27/2024 1 [place]AST - DOS PRIOR TO 2024 - [employer]NA () Jayden Smith [id number] Temi Smith Notes Date Note Type Note Provider Name and Address Organization Details Recorded Time 12/17/2023 text/html Ms. 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 Overall, the patient is doing well. She has not had significant weight loss like she had hoped but she has been doing fairly well. Her BMI is around 42%. The patient denies any unintentional weight loss, fevers, or chills. She has had imaging which shows severe hepatic steatosis but no hepatic fibrosis. She denies asterixis, ascites, or jaundice. She is due for lab work in six months and an ultrasound of her liver now.anmol Chand MD [address] [place] [address], [phone], [facility] 12/18/2023 11:29:19 01/27/2024 text/html Temi is a delightful 38-year-old patient of Dr. Good presents today for her annual VISION TEACHER exam. She was supposed to see Dr. Good today but he called out for an emergency so she was agreeable to see me. She does have her 00-gahlb-skq son iMchael with her today. Temi is , sexually active. Her and her are using condoms for control and the plan is that he will undergo vasectomy in the near future. Temi denies use of tobacco or illicit drugs. She will consume alcohol once a week. Caffeine intake consists of 2 cups a day and she exercises for 30 minutes 2 times a week on the treadmill. 2, para 2 she has a son, age 8, who was delivered vaginally and then Michael who is 99-wbqevv-boo was delivered per . Menstrual cycles are once a month lasting for 5 to 6 days. She does use both tampons and pads and the flow is moderate when it begins and then tapers. She does experience back pain 1 day prior to the menstrual period and then throughout her bleeding. She does use ibuprofen with minimal relief. She also reports that she can develop pimples on her vulva during her menstrual cycle. Temi continues to breast-feed and when she stops, she will undergo her baseline screening mammogram. Medical history includes alpha? 1? antitrypsin deficiency, anemia, asthma, hypothyroidism, hypertension during , nonalcoholic fatty liver disease, portal vein thrombosis, symptomatic varicose veins and vitamin D deficiency. Surgical history includes section. Yenifer Handy APRN, PATENT CLERK [address] [place] [address], [phone], [facility] 02/05/2024 09:24:57 OBGyn Episode Ob Episode Information Episode Created Date Number of Fetuses Patient Bloodtype Patient rh Status Prepregnancy Weight lbs Domestic Partner Domestic Partner Phone Father Name Merchandise Presentation Associate Status 01/23/20 24 1 CLOSED Fetus Data First Name Last Name Admitted to NICU Weight (g) Sex Living Outcome Pediatric Complications Fetus ID Race Codes Race Delivery Type 3288.54 2 M Full Term [id number] C/S ( Section) Carrie Calculation CARRIE Calculation Method Initial Carrie Date Initial Exam Date Initial Exam Provider Initial Ultrasound Date Last Menstrual Period Date Ultra Sound Weeks Gestation Conception by IVF Embryo Age at Transfer Date of Transfer 0 Eighteen To Twenty Week Carrie Update Ultra Sound Date Fundal Height At Umbil Quickening Date Ultra Sound Latest Weeks Gestation Final Carrie Confirmed By Final Carrie Confirmed Date Final Carrie Date Ultra Sound Latest Days Gestation 0 0 Menstrual History Last Menstrual Date Menses Monthly On Bcp Conception Prior Menses Frequency Hcg Plus Date Menarche Onset Age Delivery Information Delivery Date Delivery Type Labor Anesthesia Weeks Gestation Incision Type Labor Labor Length Hrs Delivered By Post Complications Tubal Sterilization Discharge Date Comments 3 Regional-Ep idural 38.5 false Michael distress Discharge Information Feeding Method Contraceptive Method Maternal HG B and HCT Levels Ob Episode Information Episode Created Date Number of Fetuses Patient Bloodtype Patient rh Status Prepregnancy Weight lbs Domestic Partner Domestic Partner Phone Father Name Merchandise Presentation Associate Status 01/23/20 24 1 CLOSED Fetus Data First Name Last Name Admitted to NICU Weight (g) Sex Living Outcome Pediatric Complications Fetus ID Race Codes Race Delivery Type 3486.76 1704 M Full Term [id number] Vaginal - Vacuum Carrie Calculation CARRIE Calculation Method Initial Carrie Date Initial Exam Date Initial Exam Provider Initial Ultrasound Date Last Menstrual Period Date Ultra Sound Weeks Gestation Conception by IVF Embryo Age at Transfer Date of Transfer 0 Eighteen To Twenty Week Carrie Update Ultra Sound Date Fundal Height At Umbil Quickening Date Ultra Sound Latest Weeks Gestation Final Carrie Confirmed By Final Carrie Confirmed Date Final Carrie Date Ultra Sound Latest Days Gestation 0 0 Menstrual History Last Menstrual Date Menses Monthly On Bcp Conception Prior Menses Frequency Hcg Plus Date Menarche Onset Age Delivery Information Delivery Date Delivery Type Labor Anesthesia Weeks Gestation Incision Type Labor Labor Length Hrs Delivered By Post Complications Tubal Sterilization Discharge Date Comments 6 Regional-Ep idural 39 false Jayden IV vacuum assist for Distress Discharge Information Feeding Method Contraceptive Method Maternal HG B and HCT Levels
--- OUTSIDE RECORDS SUMMARY | 2024-04-06 14:32 | XMS_ITS | Continuity of Care Document ---
Author Organization [facility], [address] ([place]) Address [address] [place] [address] Care Team Providers Care Plastic Machine Operator Name Role Phone AKUA ROLLINS Research Engineer Marine Equipment [phone] MIKHAIL GOOD Aircraft Engine Mechanic Supervisor JAMIE NOVAK Primary Care Provider [phone] Assessment Encounter Date Assessment Date Assessment LastModified by Organization Details LastModified Time 01/27/2024 01/27/2024 Annual exam. Pap smear obtained [...] findings. She is encouraged to update her non-gynecologica l preventative screenings and immunizations with her PCP. Instructed on diet and exercise to promote weight loss. Patient will return in 1 year for annual ENGINEERING MATHEMATICIAN exam or sooner if needed. meena Not available 01/27/2024 22:27:46 Plan of Treatment Reminders Order Date Submit Date Provider Last Modified By Organization Details Last Modified Time Details Appointments Establish ed Patient 15.EST 2024 09:30A M Dr. Akua Rollins Not available Not available Not available Annual Well Woman Visit 20.EST 2024 11:00A M Dr. Mikhail Good Not available Not available Not available Lab Pap test, slide(s), cervical 2023 024 [email or web address] 1 Fl Only - Fl Laboratory, [address] [place] [address], [id number], 03/10/2024 09:24:27 Referral None recorded. Procedures None recorded. Surgeries None recorded. Imaging MAMMO, screening , digital, bilateral 2023 024 PORTAL Sc Only - Fl Radiology, [address] [place] [address], [id number], 03/30/2024 17:45:36 Medication Orders None recorded. Patient TargetsNo targets recorded. Patient InstructionsNo instructions recorded. Reason for Referral None Reported. Problems Name Problem SNOMED Code Status Onset Date Resolution Date Notes Provider Name and Address Organization Details Recorded Time Steatosis of liver 981990201 Active 2023 Chris De León [facility] 11:42:13 Portal vein thrombosis 86973974 Active 2023 Tory Gibson [facility] 12:15:15 Problem Notes None recorded. Procedures Surgical History Date Name Laterality Status Provider Name and Address Organization Details Recorded Time 4 Date of Last Pap Smear completed Stefanie Castro [facility] 01/27/2024 13:06:11 [place] Fibroscan completed Akua Rollins MD [address] [place] [address], [phone], [facility] 12/19/2023 09:10:42 delivery completed Anila Harper [facility] 12/17/2023 11:23:58 biopsy of liver completed Inocencia Chan [facility] 01/23/2024 17:19:26 Imaging Results None recorded. Procedure Notes None recorded. Medical Equipment None Reported. Allergies Allergen ID Allergen Name Allergen Category Reaction Reaction Severity Criticality Documentation Date Start Date Code Code System Note Provider Name and Address Organization Details Recorded Time [id number] 2824e Medicinal product containin g penicilli n and acting as antibacte rial agent (product) medicatio n Not available Not available Not available 05/21/20232022 50412 05 SNOMED Not Available Not Available Not Available [id number] 512425682 [id number] 2824e Substance with sulfonami de structure and antibacte rial mechanism of action (substanc e) medicatio n Not available Not available Not available 05/21/20232022 69355 8003 SNOMED Not Available Not Available Not Available [id number] 439667368 6546304w3 2824e Medicinal product containin g tetracycl ine structure and acting as antibacte rial agent (product) medicatio n Not available Not available Not available 05/21/20232022 69155 1004 SNOMED Not Available Not Available Not Available [id number] 706882603 4631239l3 2824e Pfizer COVID Bival(12y up)(PF) medicatio n Not available Not available Not available 05/21/20232022 00851 8 UNK Not Available Not Available Not Available [id number] 817042175 [id number] 2824e Product containin g gadoliniu m and/or gadoliniu m compound (product) medicatio n Not available Not available Not available 12/17/2023 18040 3008 SNOMED Not Available Not Available Not Available [id number] 720484902 [id number] 2824e Iodinated contrast media (substanc e) medicatio n Not available Not available Not available 01/28/20242022 80843 2004 SNOMED Comme nt: React ion Date: 10 Jan 2023 Annot ation s: OSIRISNORMA FRAZIER 2022 11:21 AM GAdol inium , Multu =ihan ce - rash on chest ; ; [...] Available Not Available Vitals Date Recorded Body height Systolic blood pressure Diastolic blood pressure Provider Name and Address Organization Details Last Updated DateTime 01/27/2024 162.56 cm 122 mm[Hg] 78 mm[Hg] Stefanie Castro [facility] 01/27/2024 13:05:35 Social History Question [...] Do You Have A Medical Power Of Form Builder? Yes [email or web address] Information not available 01/24/2024 What [...] Diagnosis/Indication Diagnosis SNOMED-CT Code Diagnosis ICD10 Code [id number] Yenifer Flores Ole, EDUCATIONAL CONSULTANT, CREDIT ANALYST [address] ([place]) [address] [place] [address] 01/27/2024 12:25:36 01/27/2024 13:31:44 Routine gynecologic examination 343031914 Z01.419 Breast britton plasm screening status 380674688 Z12.31 Sampling o f cervix for Papanicolaou smear 605776409 Z12.4 Health Concerns Section Related Observation LastModified by Organization Detai ls LastModified Time None Recorded Concern Status LastModified by Organization Details LastModified Time None Recorded Payers Encounter Date Sequence Insurance Name Policy Number Policy Demarco Covered Member ID Demarco Member ID Guarantor Name 01/27/2024 1 EAST - DOS PRIOR TO 2024 - [employer] () Jayden Smith [id number] Temi Smith Notes Date Note Type Note Provider Name and Address Organization Details Recorded Time 01/27/2024 text/html Temi is a delightful 38-year-old patient of Dr. Good presents today for her annual ENGINEERING MATHEMATICIAN exam. She was supposed to see Dr. Good today but he called out for an emergency so she was agreeable to see me. She does have her 26-adink-rei son Michael with her today. Temi is , sexually [...] delivered vaginally and then Michael who is [id number] was delivered per . Menstrual cycles are [...] D deficiency. Surgical history includes section. Yenifer Handy, MEGHAN, CREDIT ANALYST [address] [place] [address], [phone], [place] [facility] 02/05/2024 09:24:57 OBGyn Episode No OBEpisode recorded.
--- OUTSIDE RECORDS SUMMARY | 2024-04-06 14:35 | XMS_ITS | Continuity of Care Document ---
Demographics [address] [facility] [place] [address] Home Phone [email or web address] Email Address Email Address Email Address Preferred Language en Marital Status Adventism Affiliation No Preference Race White Ethnic Group Not or Lati no Author Organization [facility] Address [address] [address]- Care Team Providers Care Band Edger Name Role Phone LOTUS RODRÍGUEZ Primary Care Physician Unavail le Encounter MS4 ACCT [facility] [id number] Date(s): 04/30/22 - 05/02/22 [facility] [address] [address] [phone] Attending Physician: PHYSICIAN Andrzej JUSTICE Admitting Physician: Andrzej ADKINS DO Referring Physician: MD Lavern, Genia Chaudhry Allergies, Adverse Reactions, Alerts Substance Reaction Severity Status penicillins Rash Severe Active sulfa drugs Vomiting Severe Active Pfizer-BioNTech COVID-19 Vaccine PF Hive s Facial swelling Severe Active tetracyclines Vomiting Severe Active Assessment and Plan Future Appointments Appointment Date:09/26/2022 09:00:00 AM Scheduled Provider:LOTUS RODRÍGUEZ DO Location:[id number] Appointment Type: Short Diagnostic Tests Pending * CALL/FAX 04/30/22 Medications Albuterol (Eqv-ProAir HFA) 90 mcg/inh inhalation aerosol 2 puff, Inhale, Q6H, PRN Wheezing, # 1 EA, 2 Refill(s), Signed: 10/19/20 14:27:00 PDT, Maintenance,Pharmacy: [facility] #[id number], 2 puff Inhale Q6H,x30 days,PRN:Wheezing, 160.02 cm, 10/19/2113:00:00 PDT, Height, 116.6 kg, 10/19/20 14:04:00 P... Start Date: 10/19/20 Stop Date: 01/17/21 Status: Ordered halobetasol 0.05% topical ointment See Instructions, 1 emmie Topical BID as needed for eczema on hands. apply in a thin film to the affected skin and rub in gently and completely(do not touch your face. Avoid use anywhere else), # 50 Gm, 0 Refill(s), Signed: 09/26/21 15:37:00 PDT, Main... Start Date: 09/26/21 Status: Ordered multivitamin Daily, 0 Refill(s), Signed: 10/19/20 14:05:00 PDT, Maintenance Start Date: 10/19/20 Status: Ordered 1 0 Refill(s), Signed: 03/26/22 16:43:00 PST, Maintenance Start Date: 03/26/22 Status: Ordered Tylenol Oral, 0 Refill(s), Signed: 09/04/21 11:29:00 PDT, Maintenance Start Date: 09/04/21 Status: Ordered Vitamin D3 2000, Daily, 0 Refill(s), Signed: 11/30/20 17:38:00 PDT, Maintenance Start Date: 11/30/20 Status: Ordered Problem List Condition Confirmation Course Effective Dates Status H ealth Status Informant High serum haptoglobin Confirmed Active Lthmg-2-qvsnpvujtno deficiency Confirmed Active Epistaxis Confirmed Active BMI 45.0-49.9, adult Confirmed Active Severe obesity (BMI >= 40) Confirmed Active Family history of celiac disease Confirmed Active History of hypothyroidism Confirmed Active Dermatitis Confirmed Active Late menses Confirmed Active Referral of patient Confirmed Active Fatty liver Confirmed Active Abnormal ultrasound Confirmed Active Vitamin D deficiency Confirmed Active Wheezing Confirmed Active Results Laboratory List Name Date ABO & Rh Type 04/30/22 ABSOLUTES-Discern 04/30/22 Antibody SCREEN 04/30/22 CBC (WITH Differential) 04/30/22 CBC-Add'L Parameters - discern 04/30/22 Comprehensive Metabolic Panel (Includes GFR) 04/30/22 DIFF (Differential Cell Count)-Discern Thyroid Stimulating Hormone 04/30/22 Vitamin D, 25 Hydroxy, Total 04/30/22 Most recent to oldest [Reference Range]: 1 Immature Granulocytes % 0.3 % *NA* (04/30/22 8:45 AM) RDW-SD [38.0-49.0 fL] 42.5 fL (04/30/22 8:45 AM) Immature Granulocytes # [0.00-0.10 K/uL] 0.02 K/uL (04/30/22 8:45 AM) Vitamin D, 25 Hydroxy, Total [20.0-50.0 ng/mL] 29.9 ng/mL (04/30/22 8:45 AM) ABO/Rh Type A POS *Unknown* (04/30/22 8:45 AM) Antibody Screen Negative ABSC (04/30/22 8:45 AM) Sodium [134-147 mmol/L] 135 mmol/L (04/30/22 8:45 AM) Potassium [3.6-5.3 mmol/L] 3.9 mmol/L (04/30/22 8:45 AM) Chloride [95-108 mmol/L] 102 mmol/L (04/30/22 8:45 AM) CO2 [19-31 mmol/L] 24 mmol/L (04/30/22 8:45 AM) Anion Gap [4-16] 9 (04/30/22 8:45 AM) Glucose Level [70-106 mg/dL] 88 mg/dL (04/30/22 8:45 AM) BUN [8-25 mg/dL] 8 mg/dL (04/30/22 8:45 AM) Creatinine [0.60-1.40 mg/dL] 0.57 mg/dL *L* (04/30/22 8:45 AM) BUN/Creat Ratio [10-28] 14 (04/30/22 8:45 AM) Calcium [8.8-10.4 mg/dL] 9.2 mg/dL (04/30/22 8:45 AM) WBC [4.0-11.0 K/uL] 5.8 K/uL (04/30/22 8:45 AM) RBC [3.70-5.40 M/uL] 4.60 M/uL (04/30/22 8:45 AM) HGB [12.0-16.0 g/dL] 13.0 g/dL (04/30/22 8:45 AM) HCT [35.0-48.0 %] 39.7 % (04/30/22 8:45 AM) MCH [27.0-34.0 pg] 28.3 pg (04/30/22 8:45 AM) MCHC [31-37 g/dL] 33 g/dL (04/30/22 8:45 AM) MCV [78-100 fL] 86 fL (04/30/22 8:45 AM) RDW-CV [11.0-15.0 %] 13.6 % (04/30/22 8:45 AM) Platelet [130-450 K/uL] 334 K/uL (04/30/22 8:45 AM) Neutrophils % 59.1 % *NA* (04/30/22 8:45 AM) Lymphocytes % 32.5 % *NA* (04/30/22 8:45 AM) Monocytes % 5.9 % *NA* (04/30/22 8:45 AM) Eosinophils % 1.7 % *NA* (04/30/22 8:45 AM) Basophils % 0.5 % *NA* (04/30/22 8:45 AM) Differential Method Automated (04/30/22 8:45 AM) MPV [8.0-12.3 fL] 9.9 fL (04/30/22 8:45 AM) Protein, Total [6.0-8.0 g/dL] 7.3 g/dL (04/30/22 8:45 AM) Albumin [3.6-5.1 g/dL] 4.2 g/dL (04/30/22 8:45 AM) Alb/Glob Ratio [1.0-2.5] 1.4 (04/30/22 8:45 AM) Alkaline Phos [37-127 U/L] 84 U/L (04/30/22 8:45 AM) AST [11-40 U/L] 15 U/L (04/30/22 8:45 AM) ALT [5-46 U/L] 19 U/L (04/30/22 8:45 AM) Bilirubin Total [0.2-1.3 mg/dL] 0.6 mg/d L (04/30/22 8:45 AM) TSH [0.45-4.50 uIU/mL] 2.11 uIU/mL (04/30/22 8:45 AM) Neutrophils # [1.50-7.80 K/uL] 3.40 K/uL (04/30/22 8:45 AM) Lymphocytes # [0.90-3.90 K/uL] 1.87 K/uL (04/30/22 8:45 AM) Monocytes # [0.20-1.00 K/uL] 0.34 K/uL (04/30/22 8:45 AM) Eosinophils # [0.00-0.60 K/uL] 0.10 K/uL (04/30/22 8:45 AM) Basophils # [0.00-0.20 K/uL] 0.03 K/uL (04/30/22 8:45 AM) eGFRcr CKD-EPI [>=60 mL/min/1.73 m2] 119 mL/min/1.73 m2 1 (04/30/22 8:45 AM) 1Result Comment: eGFR calculated using the CKD-EPI 2020 equation. Results 45-59 mL/min/1.73m2: NKF KDOQI and KDIGO guidelines recommend confirming any eGFRcr of 45-59 mL/min/1.73m2 accompanied with a urine albumin-creatinine ratio of < 30 mg/g using an eGFR calculated using cystatin C and creatinine. Orders for Microbiology Reports Name Date Urine Culture 04/30/22 Microbiology Reports TEST:Urine Culture STATUS:Auth (Verified) BODY SITE: SOURCE:Clean Catch Mid Stream COLLECTED DATE/TIME:04/30/22 8:50 AM FINAL REPORT 10,000 cfu/ml mixed skin miryam Social History Social History Type Response Smoking Status Never (less than 100 in lifetime) entered on: 01/15/21 Sex Patient Care team information Care Team Personnel Name: LOTUS RODRÍGUEZ DO Position: Primary Care Physician Member Role: Primary Care Physician Name: MCKENNA MARRUFO MD Position: General Surgery Physician Member Role: Senior Care Provider Address: Address: [address] [place], [place] [address]
--- OUTSIDE RECORDS SUMMARY | 2024-04-06 14:35 | XMS_ITS | Continuity of Care Document ---
Author Organization [facility] Address [address] [place] [address]- Care Team Providers Care Heat Treater Helper Name Role Phone LOTUS RODRÍGUEZ Primary Care Physician Shanice escalante [facility] # [id number] Date(s): 07/17/20 - 07/17/21 [facility] [address] [place] [place] [address]- [facility] Discharge Disposition: Routine Discharge Allergies, Adverse Reactions, Alerts Substance Reaction Severity Status penicillins Rash Severe Active sulfa drugs Vomiting Severe Active tetracyclines Vomiting Severe Active Pfizer-BioNTech COVID-19 Vaccine PF Hive s Facial swelling Severe Active Assessment and Plan Future Scheduled Tests Radiology* Abd Supine/Erect/ Decub + PA Chest 11/28/20 Medications Albuterol (Eqv-ProAir HFA) 90 mcg/inh inhalation aerosol 2 puff, Inhale, Q6H, PRN Wheezing, # 1 EA, 2 Refill(s), Signed: 10/19/20 14:27:00 PDT, Maintenance,Pharmacy: [facility] #[id number], 2 puff Inhale Q6H,x30 days,PRN:Wheezing, 160.02 cm, 10/19/2113:00:00 PDT, Height, 116.6 kg, 10/19/20 14:04:00 P... Start Date: 10/19/20 Stop Date: 01/17/21 Status: Ordered halobetasol 0.05% topical cream 1 emmie, Topical, BID, PRN Rash, # 50 Gm, 0 Refill(s), Signed: 10/19/20 14:05:00 PDT, Maintenance Start Date: 10/19/20 Status: Ordered multivitamin Daily, 0 Refill(s), Signed: 10/19/20 14:05:00 PDT, Maintenance Start Date: 10/19/20 Status: Ordered Vitamin D3 2000, Daily, 0 Refill(s), Signed: 11/30/20 17:38:00 PDT, Maintenance Start Date: 11/30/20 Status: Ordered Problem List Condition Effective Dates Status Health Status Inform ant High serum haptoglobin(Confirmed) Active Upfbi-4-hsoyzvpnxvg deficiency(Confirmed) Active Epistaxis(Confirmed) Active BMI 45.0-49.9, adult(Confirmed) Active Family history of celiac disease(Confirmed) Active History of hypothyroidism(Confirmed) Active Referral of patient(Confirmed) Active Fatty liver(Confirmed) Active Vitamin D deficiency(Confirmed) Active Wheezing(Confirmed) Active Social History Social History Type Response Smoking Status Never (less than 100 in lifetime) entered on: 01/15/21 Sex
--- OUTSIDE RECORDS SUMMARY | 2024-04-06 14:35 | XMS_ITS | Continuity of Care Document ---
Author Organization [facility] Address [address] [place] [address]- Care Team Providers Care Right Of Way Supervisor Name Role Phone LOTUS RODRÍGUEZ Primary Care Physician Unavailab le Encounter MS4 ACCT [facility] [id number] Date(s): 03/04/22 - 03/06/22 [facility] [address] [address] [phone] Attending Physician: LOTUS RODRÍGUEZ DO Admitting Physician: LOTUS RODRÍGUEZ DO Referring Physician: LOTUS RODRÍGUEZ DO Allergies, Adverse Reactions, Alerts Substance Reaction Severity Status penicillins Rash Severe Active sulfa drugs Vomiting Severe Active tetracyclines Vomiting Severe Active Pfizer-BioNTech COVID-19 Vaccine PF Hive s Facial swelling Severe Active Assessment and Plan Future Appointments Appointment Date:09/26/2022 09:00:00 AM Scheduled Provider:LOTUS RODRÍGUEZ DO Location:[facility] Appointment Type: Short Medications Albuterol (Eqv-ProAir HFA) 90 mcg/inh inhalation aerosol 2 puff, Inhale, Q6H, PRN Wheezing, # 1 EA, 2 Refill(s), Signed: 10/19/20 14:27:00 PDT, Maintenance,Pharmacy: [id number], 2 puff Inhale Q6H,x30 days,PRN:Wheezing, 160.02 cm, [...] PDT, Maintenance Start Date: 10/19/20 Status: Ordered Tylenol Oral, 0 Refill(s), Signed: 09/04/21 11:29:00 PDT, Maintenance Start Date: 09/04/21 Status: Ordered Vitamin D3 2000, Daily, 0 Refill(s), Signed: 11/30/20 17:38:00 PDT, Maintenance Start Date: 11/30/20 Status: Ordered Problem List Condition Confirmation Course Effective Dates Status H ealth Status Informant High serum haptoglobin Confirmed Active Ycpbb-4-jfsjpkztkxy deficiency Confirmed Active Epistaxis Confirmed Active BMI 45.0-49.9, adult Confirmed Active Severe obesity (BMI >= 40) Confirmed Active Family history of celiac disease Confirmed Active History of hypothyroidism Confirmed Active Dermatitis Confirmed Active Late menses Confirmed Active Referral of patient Confirmed Active Fatty liver Confirmed Active Abnormal ultrasound Confirmed Active Vitamin D deficiency Confirmed Active Wheezing Confirmed Active Results Laboratory List Name Date TSH with Reflex to FT4 (TSH with Reflex to FT4 (RL)) 03/04/22 Vitamin D, 25 Hydroxy, Total (Vitamin D 25 Hydroxy Total (RL)) 03/04/22 Most recent to oldest [Reference Range]: 1 Vitamin D, 25 Hydroxy, Total [20.0-50.0 ng/mL] 27.5 ng/mL (03/04/22 11:20 AM) TSH [0.45-4.50 uIU/mL] 1.39 uIU/mL (03/04/22 11:20 AM) Social History Social History Type Response Smoking Status Never (less than 100 in lifetime) entered on: 01/15/21 Sex Patient Care team information Care Team Personnel Name: LOTUS RODRÍGUEZ DO Position: Primary Care Physician Member Role: Primary Care Physician Name: MCKENNA MARRUFO MD Position: General Surgery Physician Member Role: Chcf Provider Address: Address: [address] [place], [place] [address]-
--- OUTSIDE RECORDS SUMMARY | 2024-04-06 14:35 | XMS_ITS | Continuity of Care Document ---
Author Organization [facility] Address [address] [place] [address]- Care Team Providers Care Outreach Coordinator Name Role Phone ANNE LOTUS L Primary Care Physician Unavailab le Encounter MS4 ACCT [facility] [id number] Date(s): 04/02/21 - 04/04/[address] [address] [facility] [phone] Attending Physician: PHYSICIAN Andrzej JUSTICE Admitting Physician: PHYSICIAN JUSTICE X Referring Physician: REAL SHAW Allergies, Adverse Reactions, Alerts Substance Reaction Severity Status penicillins Rash Severe Active sulfa drugs Vomiting Severe Active tetracyclines Vomiting Severe Active [employer] COVID-19 Vaccine PF Hive s Facial swelling Severe Active Assessment and Plan Future Scheduled Tests Radiology* Abd Supine/Erect/ Decub + PA Chest 11/28/20 Medications Albuterol (Eqv-ProAir HFA) 90 mcg/inh inhalation aerosol 2 puff, Inhale, Q6H, PRN Wheezing, # 1 EA, 2 Refill(s), Signed: 10/19/20 14:27:00 PDT, Maintenance,Pharmacy: [email or web address] #[id number], 2 puff Inhale Q6H,x30 days,PRN:Wheezing, 160.02 cm, 10/19/2113:00:00 PDT, Height, 116.6 kg, 10/19/20 14:04:00 P... Start Date: 10/19/20 Stop Date: 01/17/21 Status: Ordered benzonatate 200 mg oral capsule 200 mg 1 cap, Oral, TID, PRN cough, X 10 days, # 30 cap, 1 Refill(s), Signed: 04/02/21 13:10:00 PST, Acute, Pharmacy: [facility] #[id number], 1 cap Oral TID,x10 days,PRN:cough, 162 cm, 01/15/21 10:01:00 PDT, Height, 112.4 kg, 04/02/21 13:04:00 PS... Start Date: 04/02/21 Stop Date: 04/22/21 Status: Ordered dexAMETHasone 6 mg oral tablet 6 mg 1 tab, Oral, BID, X 7 days, # 14 tab, 0 Refill(s), Signed: 04/02/21 13:13:00 PST, Acute, Pharmacy: [facility] #[id number], 1 tab Oral BID,x7 days, 162 cm, 01/15/21 10:01:00 PDT, Height, 112.4 kg, 04/02/21 13:04:00 PST, Weight Dosing Start Date: 04/02/21 Stop Date: 04/09/21 Status: Ordered dextromethorphan-promethazine 15 mg-6.25 mg/5 mL oral syrup 5 mL, Oral, [id number], PRN cough, X 5 days, # 120 mL, 1 Refill(s), Signed: 04/02/21 13:10:00 PST, Acute, Pharmacy: [facility] #[id number], 5 mL Oral [id number],x5 days,PRN:cough, 162 cm, 01/15/21 10:01:00 PDT, Height, 112.4 kg, 04/02/21 13:0... Start Date: 04/02/21 Stop Date: 04/12/21 Status: Ordered halobetasol 0.05% topical cream 1 [...] Status Inform ant High serum haptoglobin(Confirmed) Active Qgwac-4-szhhzozrnlp deficiency(Confirmed) Active Epistaxis(Confirmed) Active BMI 45.0-49.9, adult(Confirmed) Active Family history of celiac disease(Confirmed) Active History of hypothyroidism(Confirmed) Active Referral of patient(Confirmed) Active Fatty liver(Confirmed) Active Vitamin D deficiency(Confirmed) Active Wheezing(Confirmed) Active Social History Social History Type Response Smoking Status Never (less than 100 in lifetime) entered on: 01/15/21 Sex
--- OUTSIDE RECORDS SUMMARY | 2024-04-06 14:35 | XMS_ITS | Continuity of Care Document ---
Author Organization [facility] Address [address] [place] [address]- Care Team Providers Care Practicing Md Anesthesiologist Name Role Phone LOTUS RODRÍGUEZ Primary Care Physician Unavail le Encounter MS4 ACCT [facility] [id number] Date(s): 10/03/21 - 10/05/21 [facility] [address] [place] [phone] Attending Physician: Andrzej ADKINS DO Admitting Physician: Andrzej ADKINS DO Referring Physician: LOTUS RODRÍGUEZ DO Allergies, Adverse Reactions, Alerts Substance Reaction Severity Status penicillins Rash Severe Active sulfa drugs Vomiting Severe Active Pfizer-BioNTech COVID-19 Vaccine PF Hive s Facial swelling Severe Active tetracyclines Vomiting Severe Active Assessment and Plan Future Appointments Appointment Date:09/26/2022 09:00:00 AM Scheduled Provider:LOTUS RODRÍGUEZ DO Location:[facility] [place] [facility][id number] Appointment Type: Short Future Scheduled Tests Laboratory* TSH with reflex to FT4 12/26/21 * Vitamin D, 25 Hydroxy, Total 12/26/21 Radiology* US Echocard 2d W/WO M-Mode Cmp+Dop/Clr/W 09/26/21 * Abd Supine/Erect/ Decub + PA Chest 11/28/20 Medications Albuterol (Eqv-ProAir HFA) 90 mcg/inh inhalation aerosol 2 puff, Inhale, Q6H, PRN Wheezing, # 1 EA, 2 Refill(s), Signed: 10/19/20 14:27:00 PDT, Maintenance,Pharmacy: [facility] #[id number], 2 puff Inhale Q6H,x30 days,PRN:Wheezing, 160.02 cm, [...] Status Inform ant High serum haptoglobin(Confirmed) Active Txsqc-5-bdgqbwrlfys deficiency(Confirmed) Active Epistaxis(Confirmed) Active BMI 45.0-49.9, adult(Confirmed) Active Family history of celiac disease(Confirmed) Active History of hypothyroidism(Confirmed) Active Late menses(Confirmed) Active Referral of patient(Confirmed) Active Fatty liver(Confirmed) Active Abnormal ultrasound(Confirmed) Active Vitamin D deficiency(Confirmed) Active Wheezing(Confirmed) Active Results Radiology Reports * Exam Date Time Procedure Performing Provider Status 10/03/21 3:53 PM US Echocard 2d W/WO M-Mode Cmp+Dop/ClrFw Megan Mendoza; Auth (Verified) Notes: (US Echocard 2d W/WO M-Mode Cmp+Dop/ClrFw) Reason For Exam: R93.89 Report: Final report is located in [employer] Powerchart. Final Report Interpreted By: LEBRON PERAZA MD Date Time: 10/04/21 03:26 pm PDT :GOYO Signed By: STU BARDALES, LEBRON Marshall Electronically Signed Social History Social History Type Response Smoking Status Never (less than 100 in lifetime) entered on: 01/15/21 Sex
--- OUTSIDE RECORDS SUMMARY | 2024-04-06 14:35 | XMS_ITS | Continuity of Care Document ---
Author Organization [facility] Address [address] [place] [address]- Care Team Providers Care Chicken Picker Name Role Phone LOTUS RODRÍGUEZ Primary Care Physician Unavailab le Encounter MS4 ACCT [facility] [id number] Date(s): 11/28/20 - 11/30/[address] [phone] [facility] [phone] Attending Physician: REAL SHAW Admitting Physician: REAL SHAW Referring Physician: REAL SHAW Allergies, Adverse Reactions, Alerts Substance Reaction Severity Status penicillins Rash Severe Active sulfa drugs Vomiting Severe Active tetracyclines Vomiting Severe Active [employer] COVID-19 Vaccine PF Hive s Facial swelling Severe Active Assessment and Plan Future Scheduled Tests Radiology* Abd Supine/Erect/ Decub + PA Chest 11/28/20 Medications Albuterol (Eqv-ProAir HFA) 90 mcg/inh inhalation aerosol 2 puff, Inhale, Q6H, PRN Wheezing, # 1 EA, 2 Refill(s), Signed: 10/19/20 14:27:00 PDT, Maintenance,Pharmacy: [facility] #[id number], 2 puff Inhale Q6H,x30 days,PRN:Wheezing, 160.02 cm, [...] Effective Dates Status Health Status Inform ant Mgznj-9-eadaenzikpx deficiency(Confirmed) Active Epistaxis(Confirmed) Active BMI 45.0-49.9, adult(Confirmed) Active Family history of celiac disease(Confirmed) Active History of hypothyroidism(Confirmed) Active Vitamin D deficiency(Confirmed) Active Wheezing(Confirmed) Active Results Radiology Reports * Exam Date Time Procedure Performing Provider Status 11/28/20 4:03 PM Abd Supine/Erect/ De cub + PA Chest Edgmon RT, Tomasa; Auth (Verified) Notes: (Abd Supine/Erect/ Decub + PA Chest) Reason For Exam: upper abd pain sob ABD SUPINE/ERECT/DECUB + PA CHEST XR ACUTE ABDOMEN WITH PA CHEST HISTORY: Upper abdominal pain. History shortness breath on liver biopsy done yesterday. COMPARISON: None. TECHNIQUE: PA chest, supine and upright abdomen (3 views). FINDINGS: There are no pulmonary infiltrates or consolidations. The cardiovascular and mediastinal silhouettes are normal. There is no evidence of pleural effusion. There is no evidence of intraperitoneal free air. The bowel gas pattern is unremarkable. No pathologic air-fluid levels. No pathologic calcifications or radiopaque renal calculi are evident. The liver and spleen are normal in size. The renal and psoas shadows are normal. There is no significant skeletal pathology. IMPRESSION: No acute cardiac or pulmonary process. Nonspecific fat and upright abdomen. Final Report Dictated Date/Time: 11/28/20 04:14 pm PDT Interpreted By: LEBRON PERAZA MD Signature Date Time: 11/28/20 04:14 pm PDT :GOYO Signed By: LEBRON PERAZA MD Electronically Signed Social History Social History Type Response Tobacco Smoking tobacco use: Former smoker, quit more than 30 days ago. Sex
--- OUTSIDE RECORDS SUMMARY | 2024-04-06 14:35 | XMS_ITS | Clinical Summary ---
Author Organization [facility] Address [address] [place] [address] Phone Care Team Providers Care Radio Despatcher Name Role Phone Unavailable Primary Care Provider Unavailabl e Allergies Active Allergy Reactions Criticality Noted Date Comments Penicillins Rash 08/16/2009 Sulfa Antibiotics Vomiting 08/16/2009 Tetracycline Vomiting 08/16/2009 Medications Drospirenone-Eth inyl Estradiol (JENY PO) Take by mouth. Active Meloxicam (MOBIC) 15 MG PO TABS Take 15 mg by mouth daily. Active ranitidine (ZANTAC) 150 MG PO TABS Take 150 mg by mouth 2 times daily. 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 Hypothyroid 08/16/2009 Pap smear abnormality 08/16/2009 Resolved Problems Problem Noted Date Diagnosed Date Resolved Date SVT (supraventricular tachycardia) 08/16/2009 12/05/2010 Immunizations Immunization Administration Dates Next Due Influenza Vaccine greater than 3 yrs 06/30/2012 Influenza Vaccine less than 3 yrs 02/02/2010 PUR HPV 3 DOSE IM GARDASIL 07/04/2010,03/06/2010 ,01/04/2010 Family History Medical History Relation Name Comments Cancer Father skin ca melanom a Coronary Artery Disease Maternal Grandmother Hypertension Maternal Grandmother Other-comment Maternal Grandmother renal disease congenital High Cholesterol Mother Hypertension Mother Cancer Paternal Grandfather prostat e Relation Name Status Comments Father Maternal Grandmother Mother Paternal Grandfather Social History Tobacco Use Types Packs/Day Years Used Date Smoking Tobacco: Never Smokeless Tobacco: Never Alcohol Use Standard Drinks/Week Comments Yes 0 (1 standard drink = 0.6 oz pur e alcohol) occ Comments No Sex and Gender Information Value Date Recorded Sex Assigned at Not on file 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 Gender Identity Not on file Sexual Orientation Not on file Last Filed Vital Signs Vital Sign Reading Time Taken Comments Blood Pressure 120/80 06/30/2012 12:56 PM CDT Pulse 72 06/30/2012 12:56 PM CDT Temperature 36.6 ??C (97.9 ??F) 06/30/2012 12:56 PM C DT Respiratory Rate 12 06/30/2012 12:56 PM CDT Oxygen Saturation 98% 05/21/2011 1:43 PM PESTICIDE CONTROL INSPECTOR Inhaled Oxygen Concentration - - Weight 103.9 kg (229 lb) 06/30/2012 12:56 PM CDT Height 162.6 cm (5' 4 ) 06/30/2012 12:56 PM CDT Body Mass Index 39.31 06/30/2012 12:56 PM CDT Plan of Treatment Health Maintenance Due Date Last Done Comments Hepatitis C Virus (HCV) Screening 1983 TdaP Immunization 1983 Hepatitis B Immunization (1 of 3 - 19+ 3-dose series) 06/20/2002 Pap Smear 06/20/2004 Cervical Cancer Screening (CCS) 06/20/2013 HPV/Cotest 06/20/2013 Discussion re Starting/Frequency of Mammograms 2023 Influenza Immunization (#1) 12/21/202306/19, 02/02/2010 SARS-COV-2 Immunization ( season) 2023 Respiratory Syncytial Virus (RSV) Immunization (Adult) (1 - 1-dose 75+ series) 06/20/2058 Meningococcal Immunization (ACWY) Aged Out No longer eligible b ased on patient's age to complete this topic Pneumococcal Immunization Combined Aged Out No longer eligible b ased on patient's age to complete this topic Rotavirus Immunization Aged Out No lo nger eligible based on patient's age to complete this topic
--- OUTSIDE RECORDS SUMMARY | 2024-04-06 14:35 | XMS_ITS | Continuity of Care Document ---
Author Organization [facility] Address [address] [place] [address]- Care Team Providers Care Project Engineering Director Name Role Phone LOTUS RODRÍGUEZ Primary Care Physician Shanice escalante [facility] # [id number] Date(s): 04/04/21 - 04/04/21 [facility] [address] [place] [address]- [facility] Discharge Disposition: Routine Discharge Attending Physician: LEBRON HOLLAND NP Allergies, Adverse Reactions, Alerts Substance Reaction Severity Status penicillins Rash Severe Active sulfa drugs Vomiting Severe Active tetracyclines Vomiting Severe Active [employer] COVID-19 Vaccine PF Hive s Facial swelling Severe Active Assessment and Plan Future Scheduled Tests Radiology* Abd Supine/Erect/ Decub + PA Chest 11/28/20 Medications Albuterol (Eqv-ProAir HFA) 90 mcg/inh inhalation aerosol 2 puff, Inhale, Q6H, PRN Wheezing, # 1 EA, 2 Refill(s), Signed: 10/19/20 14:27:00 PDT, Maintenance,Pharmacy: [id number] #[id number], 2 puff Inhale Q6H,x30 days,PRN:Wheezing, 160.02 cm, 10/19/2113:00:00 PDT, Height, 116.6 kg, 10/19/20 14:04:00 P... Start Date: 10/19/20 Stop Date: 01/17/21 Status: Ordered benzonatate 200 mg oral capsule 200 mg 1 cap, Oral, TID, PRN cough, X 10 days, # 30 cap, 1 Refill(s), Signed: 04/02/21 13:10:00 PST, Acute, Pharmacy: [facility] #[id number], 1 cap Oral TID,x10 days,PRN:cough, 162 cm, 01/15/21 10:01:00 PDT, Height, 112.4 kg, 04/02/21 13:04:00 PS... Start Date: 04/02/21 Stop Date: 04/22/21 Status: Ordered dexAMETHasone 6 mg oral tablet 6 mg 1 tab, Oral, BID, X 7 days, # 14 tab, 0 Refill(s), Signed: 04/02/21 13:13:00 PST, Acute, Pharmacy: [facility] #[id number], 1 tab Oral BID,x7 days, 162 cm, 01/15/21 10:01:00 PDT, Height, 112.4 kg, 04/02/21 13:04:00 PST, Weight Dosing Start Date: 04/02/21 Stop Date: 04/09/21 Status: Ordered dextromethorphan-promethazine 15 mg-6.25 mg/5 mL oral syrup 5 mL, Oral, [id number], PRN cough, X 5 days, # 120 mL, 1 Refill(s), Signed: 04/02/21 13:10:00 PST, Acute, Pharmacy: [email or web address] #[id number], 5 mL Oral W0u-tuenionr,x5 days,PRN:cough, 162 cm, 01/15/21 10:01:00 PDT, Height, [...] Status Inform ant High serum haptoglobin(Confirmed) Active Ansgs-2-ucduhnivwzu deficiency(Confirmed) Active Epistaxis(Confirmed) Active BMI 45.0-49.9, adult(Confirmed) Active Family history of celiac disease(Confirmed) Active History of hypothyroidism(Confirmed) Active Referral of patient(Confirmed) Active Fatty liver(Confirmed) Active Vitamin D deficiency(Confirmed) Active Wheezing(Confirmed) Active Vital Signs Most recent to oldest [Reference Range]: 1 Respiratory Rate [12-20 br/min] 18 br/mi n (04/04/21 9:23 AM) Blood Pressure [91-139/89 mmHg] 118/68mm Hg (04/04/21 9:23 AM) SpO2 [90-100 %] 98 % (04/04/21 9:23 AM) Oxygen Therapy Room air (04/04/21 9:23 AM) Temperature Temporal Artery [36.5-38 Deg C] 37.2 DegC (04/04/21 9:23 AM) Peripheral Pulse Rate [50-100 bpm] 66 bp m (04/04/21 9:23 AM) Social History Social History Type Response Smoking Status Never (less than 100 in lifetime) entered on: 01/15/21 Sex Hospital Discharge Instructions Patient Education 04/04/2021 10:45:00 Drug Reaction, Other Reaction to Medicine (Other Type) You are having a reaction to a medicine you have taken.??This may not be the same as an allergic reaction. It's an unwanted side effect of a medicine.??This can cause many symptoms, such as: ???Dizziness or headache ???Rash ???Flushing or a hot feeling ???Nausea, vomiting, or stomach pain ???Diarrhea or constipation ???Trouble breathing ???High or low blood pressure A reaction can be an upset stomach from something such as aspirin or ibuprofen. It can also be feeling faint after taking a blood pressure medicine, feeling anxious, and many other things. Symptoms can range from very mild to very severe. In most cases, the reaction goes away in 1 to 12 hours. But it will likely happen again if you takethis same medicine. Your healthcare provider will advise you if you need to??change how much, when,or how often you take this medicine.??They may also advise you to stop using this medicine. Or yourprovider may have you switch to another one.?? Home care ???Another medicine may be advised??to reduce your symptoms until the medicine???s effect wears off. Follow your healthcare provider???s advice. ???When the medicine???s effect has worn off, there should be no more problem if you don't take thesame medicine again.?Ask your provider if you should also stay away from similar medicines. Write down the information so you will remember it. ???Be sure the medicine reaction is put into your health record. Follow-up care Follow up with your healthcare provider, or as advised if your symptoms are not better in 24 hours. When to get medical advice Call your healthcare provider right away if any of these occur: ???New symptoms??that worry you ???Your current symptoms get worse,??including rash or facial swelling ???Symptoms are not eased by the treatment advised ???Fever of 100.4??F??(38??C) or higher, or as advised by your provider ???Chills Call 911 Call 911 if any of these occur: ???Trouble breathing or swallowing, or wheezing ???Hoarse voice or trouble speaking ???Confusion ???Extreme drowsiness??or trouble waking up ???Fainting or loss of consciousness ???Fast or slow heart rate ???Very low or very high blood pressure ???Vomiting blood, or large amounts of blood in stool ???Seizure ?? [id number] [employer]. All rights reserved. This information is not intended as a substitute for professional medical care. Always follow your healthcare professional's instructions.
--- OUTSIDE RECORDS SUMMARY | 2024-04-06 14:35 | XMS_ITS | Continuity of Care Document ---
Author Organization [facility] Address [address] [place] [address]- Care Team Providers Care Seasonal Tax Preparer Name Role Phone LOTUS RODRÍGUEZ Primary Care Physician Unavailab le Encounter MS4 ACCT [facility] [id number] Date(s): 12/06/20 - 12/08/[address] [phone] [facility] [phone] Attending Physician: PHYSICIAN DO, X Admitting Physician: PHYSICIAN DO, X Referring Physician: PHYSICIAN DO, X Allergies, Adverse Reactions, Alerts Substance Reaction Severity Status penicillins Rash Severe Active sulfa drugs Vomiting Severe Active tetracyclines Vomiting Severe Active Pfizer-BioNTech COVID-19 Vaccine PF Hive s Facial swelling Severe Active Assessment and Plan Future Appointments Appointment Date:01/15/2021 10:00:00 AM Scheduled Provider:MATT VILLALBA Location:[facility] #[id number] Appointment Type:[facility] Diagnostic Tests Pending * CALL/FAX 12/06/20 Future Scheduled Tests Radiology* Abd Supine/Erect/ Decub + CARMEN Chest 11/28/20 Medications Albuterol (Eqv-ProAir HFA) 90 mcg/inh inhalation aerosol 2 puff, Inhale, Q6H, PRN Wheezing, # 1 EA, 2 Refill(s), Signed: 10/19/20 14:27:00 PDT, Maintenance,Pharmacy: [facility] #[id number], 2 puff Inhale Q6H,x30 days,PRN:Wheezing, 160.02 cm, 10/19/2113:00:00 PDT, Height, 116.6 kg, 10/19/20 14:04:00 P... Start Date: 10/19/20 Stop Date: 01/17/21 Status: Ordered halobetasol 0.05% topical cream 1 emmie, Topical, BID, PRN Rash, # 50 Gm, 0 Refill(s), Signed: 10/19/20 14:05:00 PDT, Maintenance Start Date: 10/19/20 Status: Ordered multivitamin Daily, 0 Refill(s), Signed: 10/19/20 14:05:00 PDT, Maintenance Start Date: 10/19/20 Status: Ordered traMADol 50 mg oral tablet 50 mg 1 tab, Oral, O1l-wsauzins, PRN pain, X 3 days, # 5 tab, 0 Refill(s), Signed: 12/07/20 5:47:00PDT, Acute Start Date: 12/07/20 Stop Date: 12/10/20 Status: Ordered Vitamin D3 2000, Daily, 0 Refill(s), Signed: 11/30/20 17:38:00 PDT, Maintenance Start Date: 11/30/20 Status: Ordered Problem List Condition Effective Dates Status Health Status Inform ant High serum haptoglobin(Confirmed) Active Srrnu-5-gpbwjxsqzqa deficiency(Confirmed) Active Epistaxis(Confirmed) Active BMI 45.0-49.9, adult(Confirmed) Active Family history of celiac disease(Confirmed) Active History of hypothyroidism(Confirmed) Active Referral of patient(Confirmed) Active Fatty liver(Confirmed) Active Vitamin D deficiency(Confirmed) Active Wheezing(Confirmed) Active Results Laboratory List Name Date Comprehensive Metabolic Panel (Includes GFR) 12/06/20 Most recent to oldest [Reference Range]: 1 eGFR ( Descent) [>=60 mL/min/1.73 m2] 123 mL/min/1.73 m2 1 (12/06/20 1:55 PM) eGFR (non- Descent) [>=60 mL/min/ 1.73 m2] 106 mL/min/1.73 m2 2 (12/06/20 1:55 PM) Sodium [135-145 mmol/L] 136 mmol/L (12/06/20 1:55 PM) Potassium [3.5-5.2 mmol/L] 3.5 mmol/L (12/06/20 1:55 PM) Chloride [96-110 mmol/L] 105 mmol/L (12/06/20 1:55 PM) CO2 [21-31 mmol/L] 25 mmol/L (12/06/20 1:55 PM) Anion Gap [4-16] 6 (12/06/20 1:55 PM) Glucose Level [65-99 mg/dL] 130 mg/dL *H* (12/06/20 1:55 PM) BUN [8-25 mg/dL] 10 mg/dL (12/06/20 1:55 PM) Creatinine [0.60-1.40 mg/dL] 0.72 mg/dL (12/06/20 1:55 PM) BUN/Creat Ratio [10-28] 14 (12/06/20 1:55 PM) Calcium [8.7-10.4 mg/dL] 9.3 mg/dL (12/06/20 1:55 PM) Protein, Total [6.0-8.0 g/dL] 8.3 g/dL *H* (12/06/20 1:55 PM) Albumin [3.4-5.0 g/dL] 3.8 g/dL (12/06/20 1:55 PM) Alb/Glob Ratio [1.0-2.5] 0.8 *L* (12/06/20 1:55 PM) Alkaline Phos [39-145 IU/L] 108 IU/L (12/06/20 1:55 PM) AST [10-41 IU/L] 19 IU/L (12/06/20 1:55 PM) ALT [10-46 IU/L] 40 IU/L (12/06/20 1:55 PM) Bilirubin Total [0.2-1.3 mg/dL] 0.7 mg/d L (12/06/20 1:55 PM) 1Result Comment: The GFR calculated and is age and sex adjusted 2Result Comment: The GFR calculated and is age and sex adjusted Social History Social History Type Response Smoking Status Never (less than 100 in lifetime) entered on: 12/07/20 Sex
--- OUTSIDE RECORDS SUMMARY | 2024-04-06 14:35 | XMS_ITS | Continuity of Care Document ---
Author Organization [facility] Address [address] [place] [address]- Care Team Providers Care Staff Internist Office Based Only Name Role Phone LOTUS RODRÍGUEZ Primary Care Physician Unavailab le Encounter MS4 ACCT [place] - [facility] [id number] Date(s): 11/11/20 - 11/13/[address] [phone] [facility] [phone] Attending Physician: Andrzej ADKINS DO Admitting Physician: Andrzej ADKINS DO Referring Physician: LOTUS RODRÍGUEZ DO Allergies, Adverse Reactions, Alerts Substance Reaction Severity Status penicillins Rash Severe Active sulfa drugs Vomiting Severe Active tetracyclines Vomiting Severe Active [facility] COVID-19 Vaccine PF Hive s Facial swelling Severe Active Assessment and Plan Diagnostic Tests Pending * Celiac Disease Cascading Reflex (SQL) 11/11/20 Medications Albuterol (Eqv-ProAir HFA) 90 mcg/inh inhalation aerosol 2 puff, Inhale, Q6H, PRN Wheezing, # 1 EA, 2 Refill(s), Signed: 10/19/20 14:27:00 PDT, Maintenance,Pharmacy: [facility] #[id number], 2 puff Inhale Q6H,x30 days,PRN:Wheezing, 160.02 cm, 10/19/2113:00:00 PDT, Height, 116.6 kg, 10/19/20 14:04:00 P... Start Date: 10/19/20 Stop Date: 01/17/21 Status: Ordered halobetasol 0.05% topical cream 1 emmie, Topical, BID, PRN Rash, # 50 Gm, 0 Refill(s), Signed: 10/19/20 14:05:00 PDT, Maintenance Start Date: 10/19/20 Status: Ordered multivitamin Daily, 0 Refill(s), Signed: 10/19/20 14:05:00 PDT, Maintenance Start Date: 10/19/20 Status: Ordered Problem List Condition Effective Dates Status Health Status Inform ant Qqkxm-2-nhcysxurtar deficiency(Confirmed) Active Epistaxis(Confirmed) Active BMI 45.0-49.9, adult(Confirmed) Active Family history of celiac disease(Confirmed) Active History of hypothyroidism(Confirmed) Active Vitamin D deficiency(Confirmed) Active Wheezing(Confirmed) Active Results Laboratory List Name Date ABSOLUTES-Discern 11/11/20 CBC (WITH Differential) (CBC with Auto D iff (RL)) 11/11/20 CBC-Add'L Parameters - discern 11/11/20 Comprehensive Metabolic Pane l (Includes GFR) (Comprehensive Metabolic Panel with GFR (RL)) 11/11/20 DIFF (Differential Cell Count)-Discern Lipid Profile (Lipid Profile(RL)) 1 TSH with reflex to FT4 (TSH with reflex to FT4 (RL)) 11/11/20 Vitamin B12 Level (Vitamin B12 Level (RL )) 11/11/20 Vitamin D, 25 Hydroxy, Total (Vitamin D 25 Hydroxy Total (RL)) 11/11/20 Most recent to oldest [Reference Range]: 1 Immature Granulocytes % 0.3 % *NA* (11/11/20 8:58 AM) RDW-SD [38.0-49.0 fL] 40.9 fL (11/11/20 8:58 AM) Immature Granulocytes # [0.0-0.1 K/uL] 0 .0 K/uL (11/11/20 8:58 AM) Vitamin D, 25 Hydroxy, Total [30.0-100.0 ng/mL] 21.1 ng/mL *L* (11/11/20 8:58 AM) Non HDL Cholesterol [<=130 mg/dL] 101 mg /dL (11/11/20 8:58 AM) eGFR ( Descent) [>=60 mL/min/1.73 m2] 131 mL/min/1.73 m2 1 (11/11/20 8:58 AM) eGFR (non- Descent) [>=60 mL/min/ 1.73 m2] 114 mL/min/1.73 m2 2 (11/11/20 8:58 AM) LDL, Dexter-Lopez [<=99] 87 (11/11/20 8:58 AM) Sodium [135-145 mmol/L] 137 mmol/L (11/11/20 8:58 AM) Potassium [3.5-5.2 mmol/L] 3.8 mmol/L (11/11/20 8:58 AM) Chloride [96-110 mmol/L] 108 mmol/L (11/11/20 8:58 AM) CO2 [21-31 mmol/L] 24 mmol/L (11/11/20 8:58 AM) Anion Gap [4-16] 5 (11/11/20 8:58 AM) Glucose Level [65-99 mg/dL] 96 mg/dL (11/11/20 8:58 AM) BUN [8-25 mg/dL] 14 mg/dL (11/11/20 8:58 AM) Creatinine [0.60-1.40 mg/dL] 0.65 mg/dL (11/11/20 8:58 AM) BUN/Creat Ratio [10-28] 22 (11/11/20 8:58 AM) Calcium [8.7-10.4 mg/dL] 8.9 mg/dL (11/11/20 8:58 AM) WBC [4.0-11.0 K/MM3] 5.8 K/MM3 (11/11/20 8:58 AM) RBC [3.70-5.40 M/MM3] 5.11 M/MM3 (11/11/20 8:58 AM) HGB [12.0-16.0 g/dL] 13.8 g/dL (11/11/20 8:58 AM) HCT [35.0-48.0 %] 43.4 % (11/11/20 8:58 AM) MCH [27.0-34.0 pg] 27.0 pg (11/11/20 8:58 AM) MCHC [31-37 g/dL] 32 g/dL (11/11/20 8:58 AM) MCV [78-100 fL] 85 fL (11/11/20 8:58 AM) RDW-CV [11.0-15.0 %] 13.2 % (11/11/20 8:58 AM) Platelet [130-450 K/MM3] 392 K/MM3 (11/11/20 8:58 AM) Neutrophils % 56 % *NA* (11/11/20 8:58 AM) Lymphocytes % 34 % *NA* (11/11/20 8:58 AM) Monocytes % 7 % *NA* (11/11/20 8:58 AM) Eosinophils % 2 % *NA* (11/11/20 8:58 AM) Basophils % 1 % *NA* (11/11/20 8:58 AM) Differential Method Automated (11/11/20 8:58 AM) Cholesterol [<=199 mg/dL] 154 mg/dL (11/11/20 8:58 AM) Triglycerides [<=149 mg/dL] 63 mg/dL (11/11/20 8:58 AM) Protein, Total [6.0-8.0 g/dL] 8.0 g/dL (11/11/20 8:58 AM) Albumin [3.4-5.0 g/dL] 3.7 g/dL (11/11/20 8:58 AM) Alb/Glob Ratio [1.0-2.5] 0.9 *L* (11/11/20 8:58 AM) Alkaline Phos [39-145 IU/L] 82 IU/L (11/11/20 8:58 AM) AST [10-41 IU/L] 16 IU/L (11/11/20 8:58 AM) ALT [10-46 IU/L] 32 IU/L (11/11/20 8:58 AM) Bilirubin Total [0.2-1.3 mg/dL] 0.6 mg/d L (11/11/20 8:58 AM) Vitamin B12 Level [254-1320 pg/mL] 562 p g/mL (11/11/20 8:58 AM) Cholesterol/HDL Ratio [0.0-4.5] 2.9 (11/11/20 8:58 AM) TSH [0.45-4.50 mIU/L] 1.54 mIU/L (11/11/20 8:58 AM) HDL [>=45 mg/dL] 53 mg/dL (11/11/20 8:58 AM) Neutrophils # [1.5-7.8 K/uL] 3.2 K/uL (11/11/20 8:58 AM) Lymphocytes # [0.9-3.9 K/uL] 2.0 K/uL (11/11/20 8:58 AM) Monocytes # [0.2-1.0 K/uL] 0.4 K/uL (11/11/20 8:58 AM) Eosinophils # [0.0-0.6 K/uL] 0.1 K/uL (11/11/20 8:58 AM) Basophils # [0.0-0.2 K/uL] 0.0 K/uL (11/11/20 8:58 AM) 1Result Comment: The GFR calculated and is age and sex adjusted 2Result Comment: The GFR calculated and is age and sex adjusted Social History Social History Type Response Smoking Status Never (less than 100 in lifetime) entered on: 10/19/20 Sex
--- OUTSIDE RECORDS SUMMARY | 2024-04-06 14:35 | XMS_ITS | Continuity of Care Document ---
Author Organization [facility] Address [address] [address]- Care Team Providers Care Industrial Maintenance Technician Name Role Phone LOTUS RODRÍGUEZ Primary Care Physician Unavailab le Encounter MS4 ACCT [facility] [id number] Date(s): 11/28/21 - 11/30/21 [facility] [address] [phone] Attending Physician: FEDERICO WINSLOW Admitting Physician: FEDERICO WINSLOW Referring Physician: FEDERICO WINSLOW Allergies, Adverse Reactions, Alerts Substance Reaction Severity Status penicillins Rash Severe Active sulfa drugs Vomiting Severe Active tetracyclines Vomiting Severe Active Pfizer-BioNTech COVID-19 Vaccine PF Hive s Facial swelling Severe Active Assessment and Plan Future Appointments Appointment Date:09/26/2022 09:00:00 AM Scheduled Provider:LOTUS RODRÍGUEZ DO Location:[facility] [place] [facility][id number] Appointment Type: Short Diagnostic Tests Pending * West Nile Virus(Send Out) 11/28/21 Medications Albuterol (Eqv-ProAir HFA) 90 mcg/inh inhalation aerosol 2 puff, Inhale, Q6H, PRN Wheezing, # 1 EA, 2 Refill(s), Signed: 10/19/20 14:27:00 PDT, Maintenance,Pharmacy: [facility] #[id number], 2 puff Inhale Q6H,x30 days,PRN:Wheezing, 160.02 cm, [...] Status Inform ant High serum haptoglobin(Confirmed) Active Clcfo-9-ybaxyqglknl deficiency(Confirmed) Active Epistaxis(Confirmed) Active BMI 45.0-49.9, adult(Confirmed) Active Severe obesity (BMI >= 40)(Confirmed) Active Family history of celiac disease(Confirmed) Active History of hypothyroidism(Confirmed) Active Dermatitis(Confirmed) Active Late menses(Confirmed) Active Referral of patient(Confirmed) Active Fatty liver(Confirmed) Active Abnormal ultrasound(Confirmed) Active Vitamin D deficiency(Confirmed) Active Wheezing(Confirmed) Active Social History Social History Type Response Smoking Status Never (less than 100 in lifetime) entered on: 01/15/21 Sex
--- OUTSIDE RECORDS SUMMARY | 2024-04-06 14:35 | XMS_ITS | Continuity of Care Document ---
Author Organization [facility] Address [address] [place] [address]- Care Team Providers Care Well Driller Helper Name Role Phone LOTUS RODRÍGUEZ Primary Care Physician Shanice escalante [facility] # [id number] Date(s): 12/04/20 - 12/04/21 [facility] [address] [address]- Discharge Disposition: Routine Discharge Allergies, Adverse Reactions, Alerts Substance Reaction Severity Status penicillins Rash Severe Active sulfa drugs Vomiting Severe Active tetracyclines Vomiting Severe Active Pfizer-BioNTech COVID-19 Vaccine PF Hive s Facial swelling Severe Active Assessment and Plan Future Appointments Appointment Date:09/26/2022 09:00:00 AM Scheduled Provider:LOTUS RODRÍGUEZ DO Location:[facility] [place] [facility][id number] Appointment Type: Short Medications Albuterol (Eqv-ProAir HFA) 90 mcg/inh inhalation aerosol 2 puff, Inhale, Q6H, PRN Wheezing, # 1 EA, 2 Refill(s), Signed: 10/19/20 14:27:00 PDT, Maintenance,Pharmacy: [facility] #[id number], 2 puff Inhale Q6H,x30 days,PRN:Wheezing, 160.02 cm, [...] Status Inform ant High serum haptoglobin(Confirmed) Active Viixd-8-fdjtdcfxyhw deficiency(Confirmed) Active Epistaxis(Confirmed) Active BMI 45.0-49.9, adult(Confirmed) [...]
--- OUTSIDE RECORDS SUMMARY | 2024-04-06 14:35 | XMS_ITS | Continuity of Care Document ---
Author Organization [facility] Address [address] [place] [address]- Care Team Providers Care Uptwist Spinner Name Role Phone LOTUS RODRÍGUEZ Primary Care Physician Unavail le [facility] # [id number] Date(s): 03/26/22 - 03/26/22 [facility] [address] [place] [address]- Discharge Disposition: Routine Discharge Attending Physician: FEDERICO WINSLOW Allergies, Adverse Reactions, Alerts Substance Reaction Severity Status penicillins Rash Severe Active sulfa drugs Vomiting Severe Active tetracyclines Vomiting Severe Active Pfizer-BioNTech COVID-19 Vaccine PF Hive s Facial swelling Severe Active Assessment and Plan Extracted from: Title:Office Visit Note Author:FEDERICO WINSLOW Date:03/26/22 1.??Tachycardia Acute problem,??not evident in the office, no resolving, EKG unremarkable.?? See below ?? 2.??Caffeine adverse reaction Acute problem, resolving since??backing off of caffeinated beverages. ??Avoid caffeine's, follow-up with??[facility] and??PCP. ??EKG unremarkable Ordered: [id number] EKG/ECG 12 Lead Interp & Report Only Amb, 03/26/22 17:03:00 PST, Caffeine adverse reaction [id number] OBS/OP/Office Level 3 OutPt Est, 20-29min Time Amb, 03/26/22 17:04:00 PST ?? 3.??Hypertension during Will obtain??urinalysis,??hemoglobin A1c Ordered: CBC (WITH Differential), Routine, RT, 03/26/22, Order for Future Visit, Hypertension during Comprehensive Metabolic Panel (Includes GFR), Routine, RT, 03/26/22, Order for Future Visit, Hypertension during Hemoglobin A1C ., Routine, RT, 03/26/22, Order for Future Visit, Hypertension during TSH with Reflex to FT4, Routine, RT, 03/26/22, Order for Future Visit, Hypertension during Urinalysis (with mandatory microscopic), Clean Catch Mid Stream, Routine, RT, 03/26/22, Order for Future Visit, Hypertension during ?? NOTE: Portions of the above were dictated and transcribed using [employer] Voice dictation. Although every attempt is made for accuracy, occasionally errors are made. Overt mistakes are usually fixed, but small typos may be missed. Please disregard these - please inform me of any overtly incorrect portions, and I will correct. ?? Follow-up with primary care in the next 10-14 days. ??Go to the emergency room for any significant worsening of symptoms. ?? 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 Epistaxis Confirmed Active BMI 45.0-49.9, adult Confirmed Active Severe obesity (BMI >= 40) Confirmed Active Family history of celiac disease Confirmed Active History of hypothyroidism Confirmed Active Dermatitis Confirmed Active Late menses Confirmed Active Referral of patient Confirmed Active Fatty liver Confirmed Active Abnormal ultrasound Confirmed Active Vitamin D deficiency Confirmed Active Wheezing Confirmed Active Vital Signs Most recent to oldest [Reference Range]: 1 Blood Pressure [91-139/89 mmHg] 132/100m mHg (03/26/22 4:40 PM) SpO2 [90-100 %] 98 % (03/26/22 4:40 PM) Weight 115.5 kg (03/26/22 4:40 PM) Temperature Temporal Artery [36.5-38 Deg C] 36.1 DegC *L* (03/26/22 4:40 PM) Peripheral Pulse Rate [50-100 bpm] 80 bp m (03/26/22 4:40 PM) Social History Social History Type Response Smoking Status Never (less than 100 in lifetime) entered on: 01/15/21 Sex Patient Care team information Care Team Personnel Name: LOTUS RODRÍGUEZ DO Position: Primary Care Physician Member Role: Primary Care Physician Name: MCKENNA MARRUFO MD Position: General Surgery Physician Member Role: Transmission Worker Provider Address: Address: [address] [place] [id number]
--- OUTSIDE RECORDS SUMMARY | 2024-04-06 14:35 | XMS_ITS | Continuity of Care Document ---
Author Organization [facility] Address [address] [place] [address]- Care Team Providers Care Supervisor Harvesting Name Role Phone LOTUS RODRÍGUEZ Primary Care Physician Shanice Ashby [facility] # [id number] Date(s): 09/04/21 - 09/04/22 [facility] [address] [place] [address]- Discharge Disposition: Routine Discharge Allergies, Adverse Reactions, Alerts Substance Reaction Severity Status penicillins Rash Severe Active sulfa drugs Vomiting Severe Active Pfizer-BioNTech COVID-19 Vaccine PF Hive s Facial swelling Severe Active tetracyclines Vomiting Severe Active Medications Albuterol (Eqv-ProAir HFA) 90 mcg/inh inhalation aerosol 2 puff, Inhale, Q6H, PRN Wheezing, # 1 EA, 2 Refill(s), Signed: 10/19/20 14:27:00 PDT, Maintenance,Pharmacy: [facility] #[id number], 2 puff Inhale Q6H,x30 days,PRN:Wheezing, 160.02 cm, [...] Status Informant High serum haptoglobin Confirmed Active Kwoso-3-owadblivkeg deficiency Confirmed Active Epistaxis Confirmed Active BMI 45.0-49.9, adult Confirmed Active Severe obesity (BMI >= 40) Confirmed Active Family history of celiac disease Confirmed Active History of hypothyroidism Confirmed Active Dermatitis Confirmed Active Late menses Confirmed Active Referral of patient Confirmed Active Fatty liver Confirmed Active Abnormal ultrasound Confirmed Active Vitamin D deficiency Confirmed Active Wheezing Confirmed Active Social History Social History Type Response Smoking Status Never (less than 100 in lifetime) entered on: 01/15/21 Sex Patient Care team information Care Team Personnel Name: LOTUS RODRÍGUEZ DO Position: Primary Care Physician Member Role: Primary Care Physician Name: MCKENNA MARRUFO MD Position: General Surgery Physician Member Role: [place] Provider Address: Address: [address], [place] [address]
--- OUTSIDE RECORDS SUMMARY | 2024-04-06 14:35 | XMS_ITS | Continuity of Care Document ---
Author Organization [facility] Address [address] [place] [address]- Care Team Providers Care Relations Liaison Name Role Phone LOTUS RODRÍGUEZ Primary Care Physician Unavail le [facility] # [id number] Date(s): 04/02/21 - 04/02/[address] [facility] [address] [place], [place] [address] Discharge Disposition: Routine Discharge Attending Physician: REAL SHAW Allergies, Adverse Reactions, Alerts Substance Reaction Severity Status penicillins Rash Severe Active sulfa drugs Vomiting Severe Active tetracyclines Vomiting Severe Active Pfizer-BioNTech COVID-19 Vaccine PF Hive s Facial swelling Severe Active Assessment and Plan Extracted from: Title:Urgent Care/Same Day Care Note Author:REAL SHAW Date:04/02/21 1.??Cough ??Acute problem, uncontrolled. ??Ongoing for several days and worsening.?? Lungs clear on exam.?? Discussed options. ??Start Tessalon and dextromethorphan? promethazine cough syrup. ??Covid/influenza pending Ordered: benzonatate, 200 mg 1 cap, Oral, TID, PRN cough, X 10 days, # 30 cap, 1 Refill(s), Signed: 04/02/21 13:10:00 PST, Acute, Pharmacy: [facility] #[id number], 1 cap Oral TID,x10 days,PRN:cough, 162 cm, 01/15/21 10:01:00 PDT, Height, 112.4 kg, 04/02/21 13:04:00 PS... dexAMETHasone, 6 mg 1 tab, Oral, BID, X 7 days, # 14 tab, 0 Refill(s), Signed: 04/02/21 13:13:00 PST, Acute, Pharmacy: [facility] #[id number], 1 tab Oral BID,x7 days, 162 cm, 01/15/21 10:01:00 PDT, Height, 112.4 kg, 04/02/21 13:04:00 PST, Weight Dosing dextromethorphan-promethazine, 5 mL, Oral, [id number], PRN cough, X 5 days, # 120 mL, 1 Refill(s), Signed: 04/02/21 13:10:00 PST, Acute, Pharmacy: [facility] #[id number], 5 mL Oral P5p-rprfxkbo,x5 days,PRN:cough, 162 cm, 01/15/21 10:01:00 PDT, Height, 112.4 kg, 04/02/21 13:0... [id number] OBS/OP/Office Level 4 OutPt Est, 30-39min Time Amb, 04/02/21 13:10:00 PST Influenza A/B and COVID19, QL, Rapid Real-Time PCR, Nasopharyngeal Swab, Routine, RT, 04/02/21, Order for Future Visit, Cough Congestion of upper airway ?? 2.??Congestion of upper airway ??Acute problem, uncontrolled. ??See above Ordered: [id number] OBS/OP/Office Level 4 OutPt Est, 30-39min Time Amb, 04/02/21 13:10:00 PST Influenza A/B and COVID19, QL, Rapid Real-Time PCR, Nasopharyngeal Swab, Routine, RT, 04/02/21, Order for Future Visit, Cough Congestion of upper airway ?? 3.??Shortness of breath ??Acute problem, uncontrolled. ??May be??due to her bronchospasms. ??Discussed options. ??Start dexamethasone. ??Return if worsening. Ordered: dexAMETHasone, 6 mg 1 tab, Oral, BID, X 7 days, # 14 tab, 0 Refill(s), Signed: 04/02/21 13:13:00 PST, Acute, Pharmacy: [facility] #[id number], 1 tab Oral BID,x7 days, 162 cm, 01/15/21 10:01:00 PDT, Height, 112.4 kg, 04/02/21 13:04:00 PST, Weight Dosing ?? NOTE: Portions of the above were dictated and transcribed using [employer] dictation. ??Although every attempt is made for accuracy, occasionally errors are made. ??Overt mistakes are usually fixed, but small typos may be missed. ??Please disregard these-please inform me of any overtly in correct portions, and I will correct Addendum by RAHUL MORALES, REAL VERMA on April 02, 2021 16:59:04 PST Covid and influenza negative. ??Discussed with patient Future Scheduled Tests Radiology* Abd Supine/Erect/ Decub + PA Chest 11/28/20 Medications Albuterol (Eqv-ProAir HFA) 90 mcg/inh inhalation aerosol 2 puff, Inhale, Q6H, PRN Wheezing, # 1 EA, 2 Refill(s), Signed: 10/19/20 14:27:00 PDT, Maintenance,Pharmacy: [facility] #[id number], 2 puff Inhale Q6H,x30 days,PRN:Wheezing, 160.02 cm, 10/19/2113:00:00 PDT, Height, 116.6 kg, 10/19/20 14:04:00 P... Start Date: 10/19/20 Stop Date: 01/17/21 Status: Ordered benzonatate 200 mg oral capsule 200 mg 1 cap, Oral, TID, PRN cough, X 10 days, # 30 cap, 1 Refill(s), Signed: 04/02/21 13:10:00 PST, Acute, Pharmacy: [facility] #[id number], 1 cap Oral TID,x10 days,PRN:cough, 162 cm, 01/15/21 10:01:00 PDT, Height, 112.4 kg, 04/02/21 13:04:00 PS... Start Date: 04/02/21 Stop Date: 04/22/21 Status: Ordered dexAMETHasone 6 mg oral tablet 6 mg 1 tab, Oral, BID, X 7 days, # 14 tab, 0 Refill(s), Signed: 04/02/21 13:13:00 PST, Acute, Pharmacy: [facility] #[id number], 1 tab Oral BID,x7 days, 162 cm, 01/15/21 10:01:00 PDT, Height, 112.4 kg, 04/02/21 13:04:00 PST, Weight Dosing Start Date: 04/02/21 Stop Date: 04/09/21 Status: Ordered dextromethorphan-promethazine 15 mg-6.25 mg/5 mL oral syrup 5 mL, Oral, [id number]-mzgsjulh, PRN cough, X 5 days, # 120 mL, 1 Refill(s), Signed: 04/02/21 13:10:00 PST, Acute, Pharmacy: [facility] #[id number], 5 mL Oral X9e-vbundumj,x5 days,PRN:cough, 162 cm, 01/15/21 10:01:00 PDT, Height, [...] Status Inform ant High serum haptoglobin(Confirmed) Active Iiecu-3-jdxrekzwmmb deficiency(Confirmed) Active Epistaxis(Confirmed) Active BMI 45.0-49.9, adult(Confirmed) Active Family history of celiac disease(Confirmed) Active History of hypothyroidism(Confirmed) Active Referral of patient(Confirmed) Active Fatty liver(Confirmed) Active Vitamin D deficiency(Confirmed) Active Wheezing(Confirmed) Active Vital Signs Most recent to oldest [Reference Range]: 1 Respiratory Rate 18 br/min (04/02/21 1:04 PM) Blood Pressure 128/64mmHg (04/02/21 1:04 PM) SpO2 97 % (04/02/21 1:04 PM) Oxygen Therapy Room air (04/02/21 1:04 PM) Weight 112.4 kg (04/02/21 1:04 PM) Temperature Temporal Artery 37.0 DegC (04/02/21 1:04 PM) Peripheral Pulse Rate 77 bpm (04/02/21 1:04 PM) Social History Social History Type Response Smoking Status Never (less than 100 in lifetime) entered on: 01/15/21 Sex
--- OUTSIDE RECORDS SUMMARY | 2024-04-06 14:35 | XMS_ITS | Continuity of Care Document ---
Author Organization [facility] Address [address] [address]- Care Team Providers Care Contract Specialist Name Role Phone LOTUS RODRÍGUEZ Primary Care Physician Unavailab le [id number] Date(s): 01/22/22 - 01/24/22 [facility] [address] [phone] Attending Physician: LOTUS RODRÍGUEZ DO Admitting Physician: LOTUS RODRÍGUEZ DO Referring Physician: ANGELIKA PONCE MD Allergies, Adverse Reactions, Alerts Substance Reaction Severity Status penicillins Rash Severe Active sulfa drugs Vomiting Severe Active tetracyclines Vomiting Severe Active Pfizer-BioNTech COVID-19 Vaccine PF Hive s Facial swelling Severe Active Assessment and Plan Future Appointments Appointment Date:09/26/2022 09:00:00 AM Scheduled Provider:LOTUS RODRÍGUEZ DO Location:[facility] [place] [facility]1970 Appointment Type: Short Medications Albuterol (Eqv-ProAir HFA) 90 mcg/inh inhalation aerosol 2 puff, Inhale, Q6H, PRN Wheezing, # 1 EA, 2 Refill(s), Signed: 10/19/20 14:27:00 PDT, Maintenance,Pharmacy: [facility] #[id number], 2 puff Inhale Q6H,x30 days,PRN:Wheezing, 160.02 cm, [...] Status Informant High serum haptoglobin Confirmed Active Bpwad-4-ofnchrprfcz deficiency Confirmed Active Epistaxis Confirmed Active BMI 45.0-49.9, adult Confirmed Active Severe obesity (BMI >= 40) Confirmed Active Family history of celiac disease Confirmed Active History of hypothyroidism Confirmed Active Dermatitis Confirmed Active Late menses Confirmed Active Referral of patient Confirmed Active Fatty liver Confirmed Active Abnormal ultrasound Confirmed Active Vitamin D deficiency Confirmed Active Wheezing Confirmed Active Results Laboratory List Name Date Bilirubin, Uncongugated-Discern 01/22/22 Gamma Glutamyltransfer 01/22/22 Hepatic Function Panel 01/22/22 Most recent to oldest [Reference Range]: 1 Bilirubin Unconjugated [<=1.3] See Note 1 *ABN* (01/22/22 8:45 AM) Protein, Total [6.0-8.0 g/dL] 7.3 g/dL (01/22/22 8:45 AM) Albumin [3.6-5.1 g/dL] 4.2 g/dL (01/22/22 8:45 AM) Alb/Glob Ratio [1.0-2.5] 1.4 (01/22/22 8:45 AM) Alkaline Phos [37-127 U/L] 89 U/L (01/22/22 8:45 AM) AST [11-40 U/L] 17 U/L (01/22/22 8:45 AM) ALT [5-46 U/L] 18 U/L (01/22/22 8:45 AM) GGT [5-60 U/L] 18 U/L (01/22/22 8:45 AM) Bilirubin Direct [<=0.3 mg/dL] <0.2 mg/d L (01/22/22 8:45 AM) Bilirubin Total [0.2-1.3 mg/dL] 0.7 mg/d L (01/22/22 8:45 AM) 1Result Comment: Unable to calculate due to result outside of linear range Social History Social History Type Response Smoking Status Never (less than 100 in lifetime) entered on: 01/15/21 Sex Patient Care team information Personnel Name: LOTUS RODRÍGUEZ DO
--- OUTSIDE RECORDS SUMMARY | 2024-04-06 15:13 | XMS_ITS | Continuity of Care Document ---
Author Name [facility] Organization [facility] Care Team Providers Care Cinnamon Grinder Name Role Phone [facility] Unavailable Unavailable Problems Combined list of problems from Department of Defense and Veterans Affairs facilities. It does not include entries that were removed or entered in error. Problem Status Onset Date Problem Type Date of Resolution Comments Source Patient Counseling: Inquiry & Counseling Active Condition [facility] drowsiness [Sx] Active Condition [facility] allergic rhinitis Active Condition [facility] bursitis trochanteric Active Condition [facility] upper respiratory infection acute Inactive Condition [facility] Contraceptives Active Condition [facility] limb pain Active Condition [facility] visit for: administrative purpose Inactive Condition [facility] visit for: issue repeat prescription Inactive Condition [facility] dermatitis Inactive Condition [facility] blurry vision Inactive Condition [facility] atopic dermatitis Inactive Condition [facility] Administrative Evaluation Services Inactive Condition [facility] dyshidrosis Inactive Condition [facility] visit for: screening exam STD Inactive Condition [facility] visit for: screening exam for malignant neoplasm cervix Inactive Condition [facility] routine gynecological exam Inactive Condition [facility] other specified viral disease Inactive Condition [facility] obesity Active Condition [facility] Other Physical Therapy Inactive Condition [facility] Medications Combined list of outpatient medications [...] INHALATION, [facility], 18 g CANISTER Active [id number] 2023 18 Pharmac y Data Transac tion Service Facilit y azithromyci n 250 mg oral tablet 0 total refill(s ) Discont inued 02/08/2020 No Facilit y Access CEPHALEXIN (CEPHALEXIN ), 750 MG, CAPSULE, ORAL, [facility], 20 ea. BOTTLE Active [id number] 4 2023 14 Pharmac y Data Transac [...] salmeterol xinafoate), 250-50 MCG, BLST W/DEV, INHALATION, [facility]/ IKMA, 60 ea. BLIST PACK Active [id number] 4 2023 60 Pharmac y Data Transac tion Service Facilit y LEVOFLOXACI N (levofloxac in), 750 MG, TABLET, ORAL, [facility], 20 ea. BOTTLE Active [id number] 4 2023 7 Pharmac y Data Transac tion Service Facilit y METHYLPREDN ISOLONE (METHYLPRED NISOLONE), 4 MG, TAB DS PK, ORAL, [facility], 21 ea. BLIST PACK Active [id number] 4 2023 21 Pharmac y Data Transac [...] Drug allergy (disorder) Rash active 3 [facility] [place] sulfa drugs Propensity to adverse reactions to substance Vomiting Active 3 [facility] SULFA-DRUGS {Cla } Drug allergy (disorder) [facility] Propensity to adverse reactions to substance Vomiting Active 3 [facility] TETRACYCLINE (TETRACYCLINE ) Drug allergy (disorder) Vomiting active 3 [facility] Alisha [place] Immunizations Combined list of available immunizations from the Department of Defense and Veterans Affairs facilities. Immunization Series Date Given Administered By Site Reaction Lot Number CVX Code Drug Superintendent Compressor Stations Status Comments Source Influenza, injectable, MDCK, preservative [...] ADM Date DC Date Status Disposition Source [facility]) OUTPATIENT [id number] BRYCE JERNIGAN 06/13 Released w/o Limitations [facility] OUTPATIENT [id number] CALEB GUNTER 07/03 Released w/o Limitations [facility] ) [facility] OUTPATIENT [id number] KEYANNA GIL 07/07 Released w/o Limitations [facility] ) [facility] OUTPATIENT [id number] KEYANNA GIL 07/09 Released w/o Limitations [facility] ) [facility] [facility] [id number] new pt NAOMI THORPE 12/03 Released w/o Limitations [facility] [facility] [id number] [facility]/KYRA David 12/04 Released w/o Limitations [facility] [facility] [place] [id number] bilat hand rash ILA NAOMI W 01/21 Released w/o Limitations [facility] [facility] [place]IENT [id number] Notes Entered by: MARY BETH MACKENZIE 04 Feb [id number] ------- ------- ------- ------- -- BLURRY VISION BOTH EYES/WO RSENING ECZEMA ANDERSON FAN 02/05 Released w/o Limitations [facility] [facility] [id number] f/u [facility] KYRA [place] 02/08 Released w/o Limitations [facility] [facility] [place] TELE CONSULT [id number] Notes Entered by: Fatmata BENITEZ 01 Mar 2013 1018 ------- ------- ------- ------- -- Med Request PATRICIA AKBAR 03/01 [facility] [facility] [place] TELE CONSULT [id number] Notes Entered by: MAXI POSADA 16 Mar 2013 1402 ------- ------- ------- ------- -- F/U NO SHOW 26NOV MAXI POSADA 03/16 [facility] [facility] [place] [id number] lt hip pain NAOMI THORPE 03/26 Released w/o Limitations [facility]) OUTPATIENT [id number] limb pain MARTIN VALENCIA 04/23 Released w/o Limitations [facility]) [facility] [facility] [place] [id number] product sofiya cough x4days/ back/hi p pain/re fill BCP NAOMI THORPE W 06/15 Released w/o Limitations [facility] Ref[place] TELE CONSULT [id number] Notes Entered by: Reese MORRIS 25 Jun 2013 0919 ------- ------- ------- ------- -- DERM Order#: [id number] BRANDON MORRIS 06/25 [facility]) [facility] [facility] [id number] f/u bronchi tis NAOMI THORPE W 07/02 Released w/o Limitations [facility] TELE CONS[place] [id number] Notes Entered by: STEVEN HADDAD 20 Jul 2013 0832 ------- ------- ------- ------- -- DERMATO OSCAR GUPTA 07/20 [facility]) [facility] [facility] [place] [id number] PHYS NICKI SIMON([facility] 08/13 Released w/o Limitations [facility] [facility] [place] TELE CONSULT [id number] Notes Entered by: LAUREN OG 06 Sep 2013 1529 ------- ------- ------- ------- -- Lab results PATRICIA AKBAR 09/06 [facility] TELE CONS[place] [id number] Notes Entered by: ARI HARTMAN 09 Nov 2013 1451 ------- ------- ------- ------- -- Order#: [id number] SLEEP STUDY FOLLOW UP YENIFER HARTMAN 11/09 [facility] TELE CONS[place] [id number] Notes Entered by: IMAN GARCIA 12 Nov 2013 1434 ------- ------- ------- ------- -- [facility] ASTHMA/ BRONCHI TIS DOS 2013 ROSELIA GARCIA 11/12 [facility]) [facility] [facility] [place] [id number] R SHOULDE R PAIN X 4WK NICKI SIMON([facility] 11/17 Released w/o Limitations [facility] [place] TELE CONSULT [id number] Notes Entered by: ARI HARTMAN 16 Feb 2014 1438 ------- ------- ------- ------- -- FAMILY DERMATO LOGY SKIN EXAMINA TION/FO LLOWUP DERMATI TIS DOS [id number] YENIFER HARTMAN 02/16 [facility] [facility] [place] [id number] WWE/NICKI JERONIMO([place]) 03/09 Released w/o Limitations [facility] OUTPATIENT [id number] OBESITY CHAIM FERNANDEZ([place]) 03/21 Released w/o Limitations [facility] Diet[facility]) [facility] Ref[place] TELE CONSULT [id number] Notes Entered by: DEVANARI Isidoro 26 May 2014 1138 ------- ------- ------- ------- -- [facility] SLEEP STUDY CONSULT DOS [id number] YENIFER HARTMAN 05/26 Other Not Elsewhere Classified [facility] [facility] [place] [id number] sore throat, cough, loss of voice NICKI SIMON([place]) 05/30 Released w/o Limitations [facility] [place] [facility] [facility] [place] TELE CONSULT [id number] Notes Entered by: LAUREN OG OLE 31 May 2014 1117 ------- ------- ------- ------- -- Lab results SIGIFREDO BATRES 05/31 [facility] [place] [facility] [facility] [place] TELE CONSULT [id number] Notes Entered by: LAUREN OG OLE 07 Jun 2014 0736 ------- ------- ------- ------- -- STEW ESTHER Patterson 06/07 Other Not Elsewhere Classified [facility] [place] [facility] [facility] [place] TELE CONSULT [id number] Notes Entered by: LAUREN OG OLE 01 Jul 2014 1513 ------- ------- ------- ------- -- ESTHER Katz 07/01 Other Not Elsewhere Classified [facility] [place] Ref[place] TELE CONSULT [id number] Notes Entered by: Jordan BUENO 07 Jul 2014 1124 ------- ------- ------- ------- -- DERMATO LOGY FOLLOW UP RESULTS DOS 5 SUSHILA BUENO 07/07 Other Not Elsewhere Classified [facility] OUTPATIENT [id number] Childbi rth class ROBERT GOETZ E 06/26 Released w/o Limitations [facility] [id number] Childbi rth Educati on ROBERT GOETZ E 06/29 Released w/o Limitations [facility] OUTPATIENT [id number] Childbi rth Educati on ROBERT GOETZ E 07/09 Released w/o Limitations [facility] OUTPATIENT [id number] Childbi rth Educati on ROBERT GOETZ E 07/13 Released w/o Limitations [facility] OUTPATIENT [id number] Notes Entered by: CALLY WALLISNICKY FRANKELLYNDSAY Bland 28 Jul 2015 1432 ------- ------- ------- ------- -- Childbi rth Educati on class 1 GOETZ ROBERT Edwina 07/27 Released w/o Limitations [facility] OUTPATIENT [id number] Childbi rth Educati on Class 4 ROBERT GOETZ E 08/29 [facility]ased w/o Limitations [facility] Procedures Combined list of: 1) Procedures from Department of Veterans Affairs facilities going back up to thelast 18 months, not all VA non-surgical procedures are included; 2) All procedures from the Department of Defense facilities. Procedure Procedure Type Code Date Perfomer Comments Sourc e Physician Supervised Group Educational Services Physician Supervised [employer] Educational Services [id number] [id number] GOETZ, ROBERT [place] [facility] Physician Supervised Group Educational Services Physician Supervised Group Educational Services [phone] GOETZPREM OSEGUERAEEN [place] [facility] Phys[facility] Physician Supervised [employer] Educational Services [phone] GOETZ, ROBERT dEwina [facility] Physician Supervised [facility] Educational Services Physician Supervised [facility] Educational Services [phone] GOETZNICKY OSEGUERAHLEEN [place] [facility] Physician [facility]vised [facility] Educational Services Physician Supervised [employer] Educational Services [phone] GOETZ, ROBERT [place] [facility] Physician Supervised [facility] Educational Services Physician Supervised Group Educational Services [phone] Jose F GOETZ ROBERT [place] [facility] Initial A e ment And Intervention Each 15 Minutes Medical Nutrition Therapy Initial Assessment And Intervention Each 15 Minutes [id number] CHAIM FERNANDEZ([place]) Obesity related to food and nutrition knowledge [...] tired with more balance in ther diet. [facility] Non-Physician Phone Call To Patient/Provide r Brief (5-10min) Non-Physician Phone Call To Patient/Provide r Brief (5-10min) [phone] PATRICIA AKBAR [facility] Non-Physician Phone Call To Patient/Provide r Brief (5-10min) Non-Physician Phone Call To Patient/Provide r Brief (5-10min) [phone] MAXI POSADA [facility] Screening papanicolaou smear; obtaining, preparing and conveyance of cervical or vaginal smear to laboratory 013 KYRA [place] DoD PT A e ment Kinetic Training PT Assessment Kinetic Training [phone] JESSE VIDAL DoD A isted Exercises For ROM Assisted Exercises For ROM 85047 007 JESSE VIDAL DoD PT A e ment Kinetic Training PT Assessment Kinetic Training [id number] JESSE VIDAL LDavid DoD A isted Exercises [place] 19350 007 JESSE VIDAL DoD PT A e ment Kinetic Training PT Assessment Kinetic Training [id number] JESSE VIDAL DoD A isted Exercises For ROM Assisted [place] ROM 51584 007 JESSE VIDAL [facility] Physical Therapy Service Evaluation Physical Therapy Service Evaluation [phone] BRYCE JERNIGAN [facility] THERAPEUTIC ACTIVITIES, DIRECT (ONE-ON-ONE) PATIENT CONTACT (USE OF DYNAMIC ACTIVITIES TO IMPROVE FUNCTIONAL PERFORMANCE), EACH 15 MINUTES [facility] THERAPEUTIC ACTIVITIES, DIRECT (ONE-ON-ONE) PATIENT CONTACT (USE OF DYNAMIC ACTIVITIES TO IMPROVE FUNCTIONAL PERFORMANCE), EACH 15 MINUTES [facility] THERAPEUTIC ACTIVITIES, DIRECT (ONE-ON-ONE) PATIENT CONTACT (USE OF DYNAMIC ACTIVITIES TO IMPROVE FUNCTIONAL PERFORMANCE), EACH 15 MINUTES [facility] THERAPEUTIC PROCEDURE, 1 OR MORE AREAS, EACH 15 MINUTES; THERAPEUTIC EXERCISES TO DEVELOP STRENGTH AND ENDURANCE, RANGE OF MOTION AND FLEXIBILITY [facility] PHYSICAL THERAPY EVALUATION [facility] PHYS/OTH QUALIFIED HEALTH SPA SUPERVISOR QUALIFIED,EDUCA TINO,TRAIN,LICE NSRADHA/REGULATIO N (WHEN APPLICABLE) EDUC SER RENDERED TO PATS IN A GRP SETTING (EG,,OB ESITY,OR DIABETIC INSTRUCT) 016 [facility] PATIENT EDUCATION, NOT OTHERWISE CLASSIFIED, NON-PHYSICIAN PROVIDER, GROUP, PER SESSION 016 [facility] PHYS/OTH QUALIFIED HEALTH SPA SUPERVISOR QUALIFIED,EDUCA TION,TRAIN,LICE NSURE/REGULATIO N (WHEN APPLICABLE) EDUC SER RENDERED TO PATS IN A GRP SETTING (EG,,OB ESITY,OR DIABETIC INSTRUCT) 016 [facility] PHYS/OTH QUALIFIED HEALTH SPA SUPERVISOR QUALIFIED,EDUCA TION,TRAIN,LICE NSURE/REGULATIO N (WHEN APPLICABLE) EDUC SER RENDERED TO PATS IN A GRP SETTING (EG,,OB ESITY,OR DIABETIC INSTRUCT) 016 [facility] PHYS/OTH QUALIFIED HEALTH SPA SUPERVISOR QUALIFIED,EDUCA TION,TRAIN,LICE NSURE/REGULATIO N (WHEN APPLICABLE) EDUC SER RENDERED TO PATS IN A GRP SETTING (EG,,OB ESITY,OR DIABETIC INSTRUCT) 016 [facility] MEDICAL NUTRITION THERAPY; INITIAL ASSESSMENT AND INTERVENTION, INDIVIDUAL, [id number] WITH THE PATIENT, EACH 15 MINUTES 014 [facility] TELE ASSESS & MGT SRV PROV QUAL NONPHYS HLTH CARE PRO TO EST PAT,PARENT,GUAR D NOT ORIG REL ASSESS & MGT SRV PROV W/IN PREV 7 DAYS NOR LEAD ASSESS & MGT SRV/PX W/IN NXT 24 HR/SOON APT;5-10 MIN MED DIS 014 [facility] TELE ASSESS & MGT SRV PROV QUAL NONPHYS HLTH CARE PRO TO EST PAT,PARENT,GUAR D NOT ORIG REL ASSESS & MGT SRV PROV W/IN PREV 7 DAYS NOR LEAD ASSESS & MGT SRV/PX W/IN NXT 24 HR/SOON APT;5-10 MIN MED DIS 013 [facility] No data available for this section [...] ? Ordered: Unlisted Evaluation and Management Service [id number] ? 04/06/2024 Ambulatory Pharmacy Functional Status Combined list of recent functional and cognitive assessments recorded at Department of Defense and Veterans Affairs (VA).VA Functional [place] Measurement (FIM) Scale: 1 = Total Assistance (Subject = 0% +), 2 = Maximal Assistance (Subject = 25% +), 3 = Moderate Assistance (Subject = 50% +), 4 = Minimal Assistance (Subject = 75% +), 5 = Supervision, 6 = Modified [place] (Device), 7 = Complete [place] (Timely, Safely). Assessment Date/Time Source Assessment Type Assessment Skill Assessment Score Assessment Details No data available for this section
--- OUTSIDE RECORDS SUMMARY | 2024-04-06 15:16 | XMS_ITS | Clinical Summary ---
Author Organization [facility] Address [address] [place] [address] Phone Care Team Providers Care Sand Plant Attendant Name Role Phone Unavailable Primary Care Provider Unavailabl e Allergies Active Allergy Reactions Criticality Noted Date Comments Penicillins Rash 08/16/2009 Sulfa Antibiotics Vomiting 08/16/2009 Tetracycline Vomiting 08/16/2009 Medications Drospirenone-Eth inyl Estradiol (JEYN PO) Take by mouth. Active Meloxicam (MOBIC) [...] on file Legal Sex Female 3:53 AM LAP MA[employer] Gender Identity Not on file Sexual Orientation Not on file Last Filed Vital Signs Vital Sign Reading Time Taken Comments Blood Pressure 120/80 06/30/2012 12:56 PM CDT Pulse 72 06/30/2012 12:56 PM CDT Temperature 36.6 ??C (97.9 ??F) 06/30/2012 12:56 PM C DT Respiratory Rate 12 06/30/2012 12:56 PM CDT Oxygen Saturation 98% 05/21/2011 1:43 PM LAP MAKER Inhaled Oxygen Concentration - - Weight 103.9 [...]
== END 2024-04-02 21:02 | disposition home or self-care (01) ==
PROVIDERS: Emergency Provider Family Medicine; PCP Internal Medicine
DX: N60.42 Mammary duct ectasia of left breast (principal)
CPT/HCPCS: 99281

== ENCOUNTER 2024-05-28 08:14 | Outpatient (CLI) | payer OTHER, SELFPAY ==
--- OUTSIDE RECORDS SUMMARY | 2024-05-28 08:26 | XMS_ITS | Continuity of Care Document ---
Author Name [facility] Organization [facility] Care Team Providers Care Master Carpenter Name Role Phone [facility] Unavailable Unavailable Problems Combined list of problems from Department of Defense and Veterans Affairs facilities. It does not include entries that were removed or entered in error. Problem Status Onset Date Problem Type Date of Resolution Comments Source Patient Counseling: Inquiry & Counseling Active Condition [facility] drowsiness [Sx] Active Condition [facility] allergic rhinitis Active Condition [facility] bursitis trochanteric Active Condition [facility] upper respiratory infection acute Inactive Condition [facility] Contraceptives Active Condition [facility] limb pain Active Condition [facility] visit for: administrative purpose Inactive Condition [facility] visit for: issue repeat prescription Inactive Condition [facility] dermatitis Inactive Condition [facility] blurry vision Inactive Condition [facility] atopic dermatitis Inactive Condition [facility] Administrative Evaluation Services Inactive Condition [facility] dyshidrosis Inactive Condition [facility] visit for: screening exam STD Inactive Condition [facility] visit for: screening exam for malignant neoplasm cervix Inactive Condition [facility] routine gynecological exam Inactive Condition [facility] other specified viral disease Inactive Condition [facility] obesity Active Condition [facility] Other Physical Therapy Inactive Condition [facility] Medications Combined list of outpatient medications from [...] INHALATION, [facility], 18 g CANISTER Active [id number] 2023 18 Pharmac y Data Transac tion Service Facilit y azithromyci n 250 mg oral tablet 0 total refill(s ) Discont inued 02/08/2020 No Facilit y Access CEPHALEXIN (CEPHALEXIN ), 750 MG, CAPSULE, ORAL, [facility], 20 ea. BOTTLE Active [id number] 4 2023 14 Pharmac y Data Transac [...] salmeterol xinafoate), 250-50 MCG, BLST W/DEV, INHALATION, [facility]/ IKMA, 60 ea. BLIST PACK Active [id number] 2023 60 Pharmac y Data Transac tion Service Facilit y LEVOFLOXACI N (levofloxac in), 750 MG, TABLET, ORAL, [facility], 20 ea. BOTTLE Active [id number] 4 2023 7 Pharmac y Data Transac tion Service Facilit y METHYLPREDN ISOLONE (METHYLPRED NISOLONE), 4 MG, TAB DS PK, ORAL, [facility], 21 ea. BLIST PACK Active [id number] 4 2023 21 Pharmac y Data Transac [...] } Drug [facility]disorder) [facility] Propensity to adverse reactions to substance Vomiting Active [facility] SULFA-DRUGS {Cla } Drug allergy (disorder) [facility]iting [facility] tetracycline Propensity to adverse reactions to substance Vomiting Active 3 [facility] TETRACYCLINE (TETRACYCLINE ) Drug allergy (disorder) [facility] Immunizations Combined list of available immunizations from the Department of Defense and Veterans Affairs facilities. Immunization Series Date Given Administered By Site Reaction Lot Number CVX Code Drug Virtualization Engineer Status Comments Source Influenza, injectable, MDCK, preservative free, quadrivalent 2020 HAMID, () Not Given Influenza , injectabl e, MDCK, preservat sofiya free, quadrival ent DoD Encounters Combined list of: 1) Encounters from Department of Veterans Affairs facilities going backup to the last 18 months, not all [place] inpatient encounters are included; 2) Encounters from the Department of [facility] facilities going backup to 280 months. Location Location Details Encounter Type Encounter Number Reason For Visit Attending Provider ADM Date DC Date Status Disposition Source [facility]) OUTPATIENT [id number] BRYCE JERNIGAN 06/13 Released w/o Limitations [facility] Phys[facility] ) [facility] OUTPATIENT [id number] CALEB GUNTER 07/03 Released w/o Limitations [facility] ) [facility] OUTPATIENT [id number] KEYANNA GIL 07/07 Released w/o Limitations [facility] ) [facility] OUTPATIENT [id number] KEYANNA GIL 07/09 Released w/o Limitations [facility] [facility] [place] [id number] NAOMI Hernández pt 12/03 Released w/o Limitations [facility] [place] [facility] [facility] [place] [id number] pap/wwe KYRA MIDDLETON 12/04 Released w/o Limitations [facility] [place] [facility] [facility] [place] [id number] bilat hand rash NAOMI THORPE 01/21 Released w/o Limitations [facility] [place] [facility] [facility] [place] [id number] Notes Entered by: MARY BETH MACKENZIE 04 Feb [id number] ------- ------- ------- ------- -- BLURRY VISION BOTH EYES/WO RSENING ECZEMA ANDERSON FAN 02/05 Released w/o Limitations [facility] [facility] [place] [id number] f/u [facility] KYRA MIDDLETON 02/08 Released w/o Limitations [facility] [place] [facility] [facility] [place] TELE CONSULT [id number] Notes Entered by: Fatmata BENITEZ 01 Mar 2013 1018 ------- ------- ------- ------- -- Med Request PATRICIA AKBAR 03/01 [facility] [place] [facility] [facility] [place] TELE CONSULT [id number] Notes Entered by: MAXI POSADA 16 Mar 2013 1402 ------- ------- ------- ------- -- F/U NO SHOW 26NOV MAXI POSADA 03/16 [facility] [place] [facility] [facility] [place] [id number] lt hip pain NAOMI THORPE 03/26 Released w/o Limitations [facility] [place] [facility]) OUTPATIENT [id number] limb pain MARTIN VALENCIA 04/23 Released w/o Limitations [facility]) [facility] [facility] [place] [id number] product sofiya cough x4days/ back/hi p pain/re fill BCP NAOMI THORPE W 06/15 Released w/o Limitations [facility] [place] [facility] Ref[place] TELE CONSULT [id number] Notes Entered by: Reese MORRIS 25 Jun 2013 0919 ------- ------- ------- ------- -- DERM Order#: [id number] BRANDON MORRIS 06/25 [facility] [facility] [place] [id number] f/u bronchi tis NAOMI THORPE W 07/02 Released w/o Limitations [facility] [place] [facility]LE CONS[place] [id number] Notes Entered by: STEVEN HADDAD 20 Jul 2013 0832 ------- ------- ------- ------- -- DERMATO OSCAR GUPTA 07/20 [facility]) [facility] [facility] [place] [id number] PHYS NICKI SIMON([facility]) 08/13 Released w/o Limitations [facility] [place] [facility] [facility] [place] TELE CONSULT [id number] Notes Entered by: LAUREN OG 06 Sep 2013 1529 ------- ------- ------- ------- -- Lab results PATRICIA AKBAR 09/06 [facility] [place] [facility] Ref[place] TELE CONS[place] [id number] Notes Entered by: ARI HARTMAN 09 Nov 2013 1451 ------- ------- ------- ------- -- Order#: [id number] SLEEP STUDY FOLLOW UP YENIFER HARTMAN 11/09 [facility] Ref[place] TELE CONS[place] [id number] Notes Entered by: IMAN GARCIA 12 Nov 2013 1434 ------- ------- ------- ------- -- [facility] ERV ASTHMA/ BRONCHI TIS DOS 2013 ROSELIA GARCIA 11/12 [facility] [facility] [place]PAT[place] [id number] R SHOULDE R PAIN X 4WK NICKI SIMON([facility] 11/17 Released w/o Limitations [facility] [place] [facility] Ref[facility] TELE CONSULT [id number] Notes Entered by: ARI HARTMAN 16 Feb 2014 1438 ------- ------- ------- ------- -- FAMILY DERMATO LOGY SKIN EXAMINA TION/FO LLOWUP DERMATI TIS DOS [id number] YENIFER HARTMAN 02/16 [facility] [facility] [place] [id number] WWE/NICKI JERONIMO([facility] 03/09 Released w/o Limitations [facility] [place] [facility]) OUTPATIENT [id number] OBESITY CHAIM FERNANDEZ([place]) 03/21 Released w/o Limitations [facility]) [facility] Ref[place] TELE CONSULT [id number] Notes Entered by: ARI HARTMAN 26 May 2014 1138 ------- ------- ------- ------- -- [facility] SLEEP STUDY CONSULT DOS [id number] YENIFER HARTMAN Isidoro 05/26 Other Not Elsewhere Classified [facility] [facility] [place]PAT[place] [id number] sore throat, cough, loss of voice NICKI SIMON([place]) 05/30 Released w/o Limitations [facility] [place] [facility] [facility] [place] TELE CONSULT [id number] Notes Entered by: LAUREN OG OLE 31 May 2014 1117 ------- ------- ------- ------- -- Lab results SIGIFREDO BATRES 05/31 [facility] [place] [facility] [facility] [place] TELE CONSULT [id number] Notes Entered by: LAUREN OG OLE 07 Jun 2014 0736 ------- ------- ------- ------- -- ESTHER Whitehead 06/07 Other Not Elsewhere Classified [facility] [place] [facility] [facility] [place] TELE CONSULT [id number] Notes Entered by: LAUREN OG OLE 01 Jul 2014 1513 ------- ------- ------- ------- -- ESTHER Katz 07/01 Other Not Elsewhere Classified [facility] [place] [facility] Ref[place] TELE CONSULT [id number] Notes Entered by: Jordan BUENO 07 Jul 2014 1124 ------- ------- ------- ------- -- DERMATO LOGY FOLLOW UP RESULTS DOS 5 SUSHILA BUENO 07/07 Other Not Elsewhere Classified [facility] [place] [id number] Childbi rth class ROBERT GOETZ E 06/26 Released w/o Limitations [facility]) [place] [id number] Childbi rth Educati on ROBERT GOETZ E 06/29 Released w/o Limitations [facility] [id number] Childbi rth Educati on ROBERT GOETZ E 07/09 Released w/o Limitations [facility] [id number] Childbi rth Educati on ROEBRT GOETZ E 07/13 Released w/o Limitations [facility] [id number] Notes Entered by: CALLY WALLISNICKY JACKELIN Bland 28 Jul 2015 1432 ------- ------- ------- ------- -- Childbi rth Educati on class 1 ROBERT GOETZ Edwina 07/27 Released w/o Limitations [facility] [id number] Childbi rth Educati on Class 4 ROBERT GOETZ E 08/29 Released w/o Limitations [facility]) Procedures Combined list of: 1) Procedures from Department of Veterans Affairs facilities going back up to thelast 18 months, not all VA non-surgical procedures are included; 2) All procedures from the Department of Defense facilities. Procedure Procedure Type Code Date Perfomer Comments Sourc e No data available for this section Ambulatory Pharmacy Physician Supervised Group Educational Services Physician Supervised Group Educational Services [phone] ROBERT GOETZ [facility] Physician Supervised Group Educational Services Physician Supervised Group Educational Services [phone] GOETZ, ROBERT [facility] Physician Supervised Group Educational Services Physician Supervised Group Educational Services [phone] GOETZPREM OSEGUERAEEN [place] Physician Supervised [facility] Educational Services Physician Supervised Group Educational Services [phone] GOETZNICKY OSEGUERAHLEEN [place] [facility] Physician Supervised Group Educational Services Physician Supervised Group Educational Services [phone] GOETZNICKY OSEGUERAHLEEN [facility] Physician Supervised Group Educational Services Physician Supervised Group Educational Services [phone] BISHNU ROBERT [facility] Medical Nutrition Therapy Initial A e ment And Intervention Each 15 Minutes Medical Nutrition Therapy Initial Assessment And Intervention Each 15 Minutes [phone] CHAIM FERNANDEZ([place]) Obesity related to food and nutrition knowledge [...] tired with more balance in ther diet. [facility] Non-Physician Phone Call To Patient/Provide r Brief (5-10min) Non-Physician Phone Call To Patient/Provide r Brief (5-10min) [phone] PATRICIA AKBAR [facility] Non-Physician Phone Call To Patient/Provide r Brief (5-10min) Non-Physician Phone Call To Patient/Provide r Brief (5-10min) [phone] MAXI POSADA [facility] Screening papanicolaou smear; obtaining, preparing and conveyance of cervical or vaginal smear to laboratory 013 KYRA MIDDLETON DoD PT A e ment Kinetic Training PT Assessment Kinetic Training [phone] MARCY JESSE L. DoD A isted Exercises For ROM Assisted Exercises For ROM [phone] MARCY JESSE L. DoD PT A e ment Kinetic Training PT Assessment Kinetic Training [phone] MARCYSHARLAL L. DoD A isted Exercises For ROM Assisted Exercises [place] ROM [phone] MARCY JESSE L. DoD PT A e ment Kinetic Training PT Assessment Kinetic Training [phone] MARCY JESSE L. DoD A isted Exercises For ROM Assisted Exercises [place] ROM [id number] MARCYSHARLA SARABIAL L. [facility] Physical Therapy Service Evaluation Physical Therapy Service Evaluation [phone] BRYCE JERNIGAN [facility] THERAPEUTIC ACTIVITIES, DIRECT (ONE-ON-ONE) PATIENT CONTACT (USE OF DYNAMIC ACTIVITIES TO IMPROVE FUNCTIONAL PERFORMANCE), EACH 15 MINUTES 007 [facility] THERAPEUTIC ACTIVITIES, DIRECT (ONE-ON-ONE) PATIENT CONTACT (USE OF DYNAMIC ACTIVITIES TO IMPROVE FUNCTIONAL PERFORMANCE), EACH 15 MINUTES 007 [facility] THERAPEUTIC ACTIVITIES, DIRECT (ONE-ON-ONE) PATIENT CONTACT (USE OF DYNAMIC ACTIVITIES TO IMPROVE FUNCTIONAL PERFORMANCE), EACH 15 MINUTES 007 [facility] THERAPEUTIC PROCEDURE, 1 OR MORE AREAS, EACH 15 MINUTES; THERAPEUTIC EXERCISES TO DEVELOP STRENGTH AND ENDURANCE, RANGE OF MOTION AND FLEXIBILITY 007 [facility] PHYSICAL THERAPY EVALUATION 007 [facility] PHYS/OTH QUALIFIED HEALTH CLINICAL NURSING INSTRUCTOR QUALIFIED,EDUCA TION,TRAIN,LICE NSURE/REGULATIO N (WHEN APPLICABLE) EDUC SER RENDERED TO PATS IN A GRP SETTING (EG,,OB ESITY,OR DIABETIC INSTRUCT) 016 [facility] PATIENT EDUCATION, NOT OTHERWISE CLASSIFIED, NON-PHYSICIAN PROVIDER, GROUP, PER SESSION 016 [facility] PHYS/OTH QUALIFIED HEALTH CLINICAL NURSING INSTRUCTOR QUALIFIED,EDUCA TION,TRAIN,LICE NSURE/REGULATIO N (WHEN APPLICABLE) EDUC SER RENDERED TO PATS IN A GRP SETTING (EG,,OB ESITY,OR DIABETIC INSTRUCT) 016 [facility] PHYS/OTH QUALIFIED HEALTH CLINICAL NURSING INSTRUCTOR QUALIFIED,EDUCA TION,TRAIN,LICE NSURE/REGULATIO N (WHEN APPLICABLE) EDUC SER RENDERED TO PATS IN A GRP SETTING (EG,,OB ESITY,OR DIABETIC INSTRUCT) 016 [facility] PHYS/OTH QUALIFIED HEALTH CLINICAL NURSING INSTRUCTOR QUALIFIED,EDUCA TION,TRAIN,LICE NSURE/REGULATIO N (WHEN APPLICABLE) EDUC SER RENDERED TO PATS IN A GRP SETTING (EG,,OB ESITY,OR DIABETIC INSTRUCT) 016 [facility] MEDICAL NUTRITION THERAPY; INITIAL ASSESSMENT AND INTERVENTION, INDIVIDUAL, [id number] WITH THE PATIENT, EACH 15 MINUTES 014 [facility] TELE ASSESS & MGT SRV PROV QUAL NONPHYS HLTH CARE PRO TO EST PAT,PARENT,GUAR D NOT ORIG REL ASSESS & MGT SRV PROV W/IN PREV 7 DAYS NOR LEAD ASSESS & MGT SRV/PX W/IN NXT 24 HR/SOON APT;5-10 MIN MED DIS 014 [facility] TELE ASSESS & MGT SRV PROV QUAL NONPHYS HLTH CARE PRO TO EST PAT,PARENT,GUAR D NOT ORIG REL ASSESS & MGT SRV PROV W/IN PREV 7 DAYS NOR LEAD ASSESS & MGT SRV/PX W/IN NXT 24 HR/SOON APT;5-10 MIN MED DIS 013 [facility] Social History Combined list of available smoking, tobacco, and other social history from Department of Defense and Veterans Affairs facilities. Social History Type Response Date Comment Sourc e Sexual Orientation Amb[facility] Pharmacy Gender identity [facility] Female Ambulatory Pha rmacy This section is an empty soc ial history section. DoD Assessment and Plan Combined list of future care activities from Department of Defense and Veterans Affairs facilities (e.g., assessment and plan notes, appointments, orders, and referrals). Additional future care activities may be listed in the Plan of Care section. Result Assessment and Plan Date Source Assessment and Plan Extracted from:Title : PCS Screen Author: ESTELA GARCIA Date: 02/08/20 1. A dministrative statuses 34 yo Dependent presents for screening to [facility] Not seen in medical system. PMHX: 1. alpha 1 antitrypsin deficiency Monitored by GI and Pulm but stable not requiring any medications or interventions. Called patient who provided name and date of for confirmation. Patient's medical history and medications have been reviewed and updated. Phone conversation lasted approximately 10 minutes. Patient well versed in her screenings, but no interventions or specialty care needed at this time. She understands specialists are in [place] over an [place] drive. CLEARED FOR PCS Ordered: Unlisted Evaluation and Management Service [id number] 05/28/[address] [place] [id number] Functional Status Combined list of recent functional and cognitive assessments recorded at Department of Defense and Veterans Affairs (VA).VA Functional Schley Measurement (FIM) Scale: 1 = Total Assistance (Subject = 0% +), 2 = Maximal Assistance (Subject = 25% +), 3 = Moderate Assistance (Subject = 50% +), 4 = Minimal Assistance (Subject = 75% +), 5 = Supervision, 6 = Modified Schley (Device), 7 = Complete Schley (Timely, Safely). Assessment Date/Time Source Assessment Type Assessment Skill Assessment Score Assessment Details No data available for this section
--- OUTSIDE RECORDS SUMMARY | 2024-05-28 08:26 | XMS_ITS | Clinical Summary ---
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
--- OUTSIDE RECORDS SUMMARY | 2024-05-28 08:27 | XMS_ITS | Data Portability ---
Author Organization [facility], [address] [place] ([place]) Address [address] 4th [place] [address] Care Team Providers Care Outsole Cementer Name Role Phone AKUA CHAND Geotechnical Department Manager JUAN GOOD Rn Recruitment JAMIE NOVAK Primary Care Provider Assessment Encounter Date Assessment Date Assessment LastModified [...] on this date of service including both muis-ov-efqb and fbp-yunm-bx-face time excluding any separately reportable services. dll [...] will return in 1 year for annual DISINTEGRATOR OPERATOR exam or sooner if needed. meena Not available 01/27/2024 22:27:46 Plan of Treatment Reminders Order Date Submit Date Provider Last Modified By Organization Details Last Modified Time Details Appointments Imaging 5.PRO 2024 09:45A M Radiology Not available Not available Not available Establis hed Patient 15.EST 2024 09:30A M Dr. Akua Chand Not available Not available Not available Annual Well Woman Visit 20.EST 2024 11:00A M Dr. Juan Good Not available Not available Not available Lab Pap test, slide(s) , cervical 2023 024 [email or web address] 1 [place] [facility], [facility] [address], [address], 03/10/2024 09:24:27 Referral None recorded . Procedures None recorded . Surgeries None recorded . Imaging US, abdomen, limited 2023 024 [email or web address] [place] [facility] [place] [facility], [address] [place] [address], [id number], 12/18/2023 09:51:23 MAMMO, screenin g, digital, bilatera l 2023 024 jaret [place] [facility], [address] [place] [address], [address], 05/24/2024 13:23:40 Medication Orders None recorded . Patient TargetsNo targets recorded. Patient InstructionsNo instructions recorded. Reason for Referral None Reported. Results Created Date Observation Date Name Description Value Unit Range Abnormal Flag Note LastModifiedBy Organization Detail LastModifiedTime 01/27/20 24 01/27/2024 GYNEC OLOGI C CYTOL OGY REPOR T supervisor cold rolling/aC Perfo rmed at: [facility] Order ing Provi sherif: Stehl ing, Kasey n Patie nt Name: BRIEN ANDRADE, TED WOODRUFF Acczak fito #: [id number] /A ge/Ge nder: 984 (Age: 38) / F Proce dure Date: 2023 SP ECIME N RECEI ANGELINA * SureP ath HPV DNA with Pap, Cervi [place]/E ndoce rvica l Speci men Adequ acy Satis facto ry for evalu ation Endoc ervic al cell/ trans forma tion zone compo nent prese nt Cytol ogic Diagn osis Negat maggie for intra epith elial lesio n or jose jig jael EL ECTRO NICAL LY VERIF IED BY [...] Test (Roch e Molec ular Syste ms, [facility] [place] , [place] ). The fredi HPV Test is a [...] atory ([facility], [place], [place]). [facility] catherine is [...] BY LILY ON T LILY ON, SCT(A SCP)C M 02/01 14:48 CL INICA L/MEN STRUA [...] resul t. END OF T Not Available [place] Only - [facility] [address] [place] [address], [address], 02/03/2024 13:49:26 12/05/19 24 11/12/2022 imagi ng/di agnos tic resul t No observ ation record ed. Not Available 12/05/2023 00:18:31 12/26/19 24 12/26/2023 US, abdom en, limit ed [facility] [address] [address] Teleph one [phone] Name: Ruth Brody [id number] Exam Date: 2023 Age: 38 Physic delon: [...] 10:36 AM cc: Page PAGE 1 of [facility] 1 [email or web address] [place] Only - [facility] [address] [place] [address], [address], 12/26/2023 15:19:19 Result Notes None recorded. Problems Name Problem SNOMED Code Status Onset Date Resolution Date Notes Provider Name and Address Organization Details Recorded Time Steatosis of liver 269220207 Active 2023 Chris Mejia [facility] 4 11:42:13 Portal vein thrombosis 04188233 Active 2023 Tory Gibson [facility] 4 12:15:15 Problem Notes None recorded. Procedures Surgical History Date Name Laterality Status Provider Name and Address Organization Details Recorded Time 4 Date of Last Pap Smear completed Stefanie Castro [facility] 01/27/2024 13:06:11 4 [place] Fibroscan completed Akua Chand MD [address] [place] [address], [phone], [facility] 12/19/2023 09:10:42 delivery completed Anila Harper [facility] 12/17/2023 11:23:58 biopsy of liver completed Inocencia Chan [facility] 01/23/2024 17:19:26 Imaging Results Imaging Date Name Status LastModified by Organiz ation Details LastModified Time 11/12/2022 imaging/diag nostic result completed Information not available 12/05/2023 00:18:31 12/26/2023 US, abdomen, limited completed [email or web address] [place] [facility] [address] , [place], [address], 12/26/2023 15:19:19 Procedure Notes None recorded. Medical Equipment None Reported. Allergies Allergen ID Allergen Name Allergen Category Reaction Reaction Severity Criticality Documentation Date Start Date Code Code System Note Provider Name and Address Organization Details Recorded Time 9284066 Product containin g penicilli n and antibioti c (product) medicatio n Not available Not available Not available 05/21/20232022 74123 05 SNOMED Not Available Not Available Not Available 9038931 Substance with sulfonami de structure and antibacte rial mechanism of action (substanc e) medicatio n Not available Not available Not available 05/21/20232022 00162 8003 SNOMED Not Available Not Available Not Available 1079269 Product containin g tetracycl ine and antibioti c (product) medicatio n Not available Not available Not available 05/21/20232022 90312 1004 SNOMED Not Available Not Available Not Available 0485365 Pfizer COVID Bival(12y up)(PF) medicatio n Not available Not available Not available 05/21/20232022 47772 8 UNK Not Available Not Available Not Available 9500709 Product containin g gadoliniu m and/or gadoliniu m compound (product) medicatio n Not available Not available Not available 12/17/2023 86265 3008 SNOMED Not Available Not Available Not Available 7354542 Iodinated contrast media (substanc e) medicatio n Not available Not available Not available 01/28/20242022 12424 2004 SNOMED Comme nt: React ion Date: 10 Jan 2023 Annot ation s: NORMA CROWDER 2022 11:21 AM GAdol inium , Multu [...] and Address Organization Details Last Updated DateTime 053485. 7 g 45.5 kg/m2 162.56 cm 74 /min 97 % 97 % 132 mm[Hg] 78 mm[Hg] Anila Harper [facility] 11:26:49 Date Recorded Body height Provider Name an d Address Organization Details Last Updated DateTime 12/17/2023 162.56 cm Chris Mejia [facility] 12/17/2023 11:40:40 Date Recorded Body height Systolic blood pressure Diastolic blood pressure Provider Name and Address Organization Details Last Updated DateTime 01/27/2024 162.56 cm 122 mm[Hg] 78 mm[Hg] Stefanie Castro [facility] 01/27/2024 13:05:35 Social History Question Answer Notes [...] Do You Have A Medical Power Of Keno Writer/Runner? Yes [email or web address] Information not available 01/24/2024 What [...] available 2023 13:47:11 Medical History Condition Response Anxiety Disorder N Diabetes N Bleeding Disorder N Attention-deficit Hyperactivity Disorder N High Blood Pressure N Arthritis N Hyperlipidemia N Cancer N Thyroid Problems Y Stroke N Asthma Y Depression N COPD N Seizures N Anemia Y Heart Disease N Fibromyalgia N Deep Vein [...] Diagnosis/Indication Diagnosis SNOMED-CT Code Diagnosis ICD10 Code Diagnosis Note [id number] Akua Chand MD [address] [facility] ([place]) [address] [place] [address] 12/17/2023 10:56:25 12/17/2023 12:59:35 Steatosis of liver 992882695 K76.0 Portal vei n thrombosis 63818229 I81 [id number] Akua Chand MD [address] [place] [phone] 12/17/2023 11:28:49 12/17/2023 11:42:38 Steatosis of liver 542574549 K76.0 [id number] Yenifer Flores Ole, UTILITY ARBORIST, CENTRAL OFFICE SUPERVISOR [address] [facility] ([place]) [address] [place] [address] 01/27/2024 12:25:36 01/27/2024 13:31:44 Routine gynecologic examination 281842030 Z01.419 Additional diagnosis detail: Women's annual routine gynecologi [place] examinatio n Breast britton plasm screening status 606423971 Z12.31 Additional diagnosis detail: Other screening mammogram Sampling o f cervix for Papanicolaou smear 101696886 Z12.4 Additional diagnosis detail: Pap smear for cervical cancer screening Health Concerns Section Related Observation LastModified by Organization Detai ls LastModified Time None Recorded Concern Status LastModified by Organization Details LastModified Time None Recorded Advance Directives Directive Y: Payers Encounter Date Sequence Insurance Name Policy Number Policy Demarco Covered Member ID Demarco Member ID Guarantor Name 12/17/2023 1 EAST - DOS PRIOR TO 2024 - [employer] () Jayden Smith [id number] Temi Smith 12/17/2023 1 EAST - DOS PRIOR TO 2024 - [employer] () Jayden Smith [id number] Temi Smiht 01/27/2024 1 EAST - DOS PRIOR TO 2024 - [employer] () Jayden Smith [id number] Temi Smith Notes Date Note Type Note [...] months and an ultrasound of her liver now.dll Akua Chand MD [address] [place] [address], [phone], [facility] 12/18/2023 11:29:19 01/27/2024 text/html Temi is a delightful 38-year-old patient of Dr. Good presents today for her annual DISINTEGRATOR OPERATOR exam. She was supposed to see Dr. Good today but he called out for an emergency so she was agreeable to see me. She does have her 38-lnoqn-ovq son Michael with her today. Temi is [...] delivered vaginally and then Michael who is 27-qixcer-yfd was delivered per . Menstrual cycles are [...] her baseline screening mammogram. Medical history includes alpha 1 antitrypsin deficiency, anemia, asthma, hypothyroidism, hypertension during , nonalcoholic fatty liver disease, portal vein thrombosis, symptomatic varicose veins and vitamin D deficiency. Surgical history includes section. Yenifer Handy, UTILITY ARBORIST, CENTRAL OFFICE SUPERVISOR [address] [place] [address], [phone], [facility] 02/05/2024 09:24:57 OBGyn Episode Ob Episode Information Episode Created Date Number of Fetuses Patient Bloodtype Patient rh Status Prepregnancy Weight lbs Domestic Partner Domestic Partner Phone Father Name Dermatologist Status 01/23/20 24 1 CLOSED Fetus Data First Name Last Name Admitted to NICU Weight (g) Sex Living Outcome Pediatric Complications Fetus ID Race Codes Race Delivery Type 3288.54 2 M Full Term [id number] C/S ( Section) Fito Calculation Initial Fito Date Initial Exam Date Initial Exam Provider Initial Ultrasound Date Last Menstrual Period Date Ultra Sound Weeks Gestation 0 Eighteen To Twenty Week Fito Update Ultra Sound Date Fundal Height At Umbil Quickening Date Ultra Sound Latest Weeks Gestation Final Fito Confirmed By Final Fito Confirmed Date Final Fito Date Ultra Sound Latest Days Gestation 0 [...] Domestic Partner Domestic Partner Phone Father Name Dermatologist Status 01/23/20 24 1 CLOSED Fetus Data First Name Last Name Admitted to NICU Weight (g) Sex Living Outcome Pediatric Complications Fetus ID Race Codes Race Delivery Type 3486.76 1704 M Full Term 07[address] Vaginal - Vacuum Fito Calculation Initial Fito Date Initial Exam Date Initial Exam Provider Initial Ultrasound Date Last Menstrual Period Date Ultra Sound Weeks Gestation 0 Eighteen To Twenty Week Fito Update Ultra Sound Date Fundal Height At Umbil Quickening Date Ultra Sound Latest Weeks Gestation Final Fito Confirmed By Final Fito Confirmed Date Final Fito Date Ultra Sound Latest Days Gestation 0 [...]
[2024-05-28 09:04] LABS: Hematocrit 41.3 % (35.0-49.0); Hemoglobin 12.5 g/dL (12.0-15.0); Mean Corpuscular HGB Conc 30.3 g/dL (32-36); Mean Corpuscular Hemoglobin 26.2 pg (27.0-31.0); Mean Corpuscular Volume 86.4 fL (78.0-102.0); Mean Platelet Volume 9.4 fl (9.2-11.8); Platelet Count Result 375 K/mm3 (150-420); Red Blood Count 4.78 M/mm3 (4.20-5.40); Red Cell Distribution Width 13.2 % (11.6-14.4); White Blood Count 5.8 K/mm3 (4.8-10.8)
[2024-05-28 09:05] LABS: Add Urine Microscopic? NO; Appearance Urine Clear (Clear); Bilirubin Urine Negative (Negative); Blood Urine Trace-intact (Negative); Color Urine Light Yellow (Yellow); Glucose Urine UA Negative (Negative); Ketones Urine Negative (Negative); Leukocyte Esterase Ur Negative (Negative); Nitrate Urine Negative (Negative); Protein Urine Negative (Negative); Urobilinogen Urine 0.2 mg/dL (0.2-1.0)
[2024-05-28 09:11] LABS: Hemoglobin A1C 5.8 % (<5.7)
[2024-05-28 09:33] LABS: Alanine Aminotransferase 25 U/L (14-59); Albumin Level 3.7 g/dL (3.4-5.0); Alkaline Phosphatase 91 U/L (46-116); Anion Gap 9 mmol/L (4-12); Aspartate Amino Transferase 12 U/L (15-37); Bilirubin,Total 0.6 mg/dL (0.00-1.00); Blood Urea Nitrogen 11 mg/dL (7-18); Carbon Dioxide 29 mmol/L (21-32); Chloride 103 mmol/L (98-108); Cholesterol 147 mg/dL (0-200); Estimated Glomerular Filt Rate > 60; Ferritin 43 ng/mL (8-252); Free T3 2.99 pg/mL (2.18-3.98); Free T4 Free Thyroxine 0.86 ng/dL (0.76-1.46); GGT 29 U/L (5-55); Glucose 97 mg/dL (70-99); HDL Direct 55 mg/dL (40-60); Iron 80 ug/dL (50-170); LDL Cholesterol Calculated 79 mg/dL (<130); Osmolality Calculated 291 mOsm/kg (285-295); Potassium 4.6 mmol/L (3.5-5.1); Sodium 141 mmol/L (136-145); Thyroid Stimulating Hormone 2.37 uIU/mL (0.36-3.74); Total Protein 7.2 g/dL (6.4-8.2); Triglycerides 65 mg/dL (0-150)
[2024-05-30 03:08] LABS: Vitamin D 25 Hydroxy 42 ng/mL (30-100)
[2024-05-30 07:49] LABS: Alpha-1-Antitrypsin, QN 89 mg/dL (83-199)
== END 2024-05-28 08:15 | disposition home or self-care (01) ==
LOC: CHSLAB 08:18
PROVIDERS: PCP Internal Medicine; Visit Provider Internal Medicine
DX: Z00.00 Encounter for general adult medical examination without abnormal findings (principal); E88.01 Alpha-1-antitrypsin deficiency; K76.0 Fatty (change of) liver, not elsewhere classified; J45.41 Moderate persistent asthma with (acute) exacerbation; E55.9 Vitamin D deficiency, unspecified; R53.83 Other fatigue
CPT/HCPCS: 36415; 80053; 80061; 81003; 82103; 82306; 82728; 82977; 83036; 83540; 84439; 84443; 84481; 85027

== ENCOUNTER 2024-06-05 07:55 | Outpatient (CLI) | payer OTHER, SELFPAY ==
--- NOTE | ~2024-06-05 | US_ITS ---
EXAM: ABDOMEN ULTRASOUND HISTORY: Hemangioma of liver, seen on the CT examination dated 05/02/2023 within segment 8, measuring 8.4 x 8.3 mm. COMPARISON: CT examination dated 05/02/2023 FINDINGS: LIVER: The liver is unremarkable in echogenicity and size. The portal vein is patent demonstrating hepatopedal flow. The contour of the liver is smooth. GALLBLADDER: No stones are identified within the gallbladder, which is otherwise unremarkable. No gallbladder wall thickening or pericholecystic fluid. BILE DUCTS: Common bile duct measures 3.5mm. PANCREAS: Limited evaluation of the pancreas secondary to overlying bowel gas IMPRESSION: Unremarkable sonographic evaluation of the right upper quadrant, as detailed above. The high location of this hemangioma seen on CT examination is difficult to see with ultrasound. For confirmation, contrast enhanced MRI examination (with liver mass protocol) may be performed for f urther evaluation. Reviewed, dictated and finalized at location A. OUT WORKER IMPRESSION: Unremarkable sonographic evaluation of the right upper quadrant, as detailed ab ove. The high location of this hemangioma seen on CT examination is difficult to see with ultrasound. For confirmation, contrast enhanced MRI examination (with liver mass protocol) may be performed for further evaluation.
== END 2024-06-05 07:56 | disposition home or self-care (01) ==
LOC: MICIMG 07:56
PROVIDERS: PCP Internal Medicine; Visit Provider Internal Medicine
DX: D18.03 Hemangioma of intra-abdominal structures (principal)
CPT/HCPCS: 76705

== ENCOUNTER 2025-03-20 12:52 | Emergency (ER) | payer OTHER, SELFPAY ==
[2025-03-20 13:11] VITALS: BP 130/86; PULSE 84; RESP 16; TEMP 36.5; O2SAT 98
[2025-03-20 13:22] LABS: EDSTREPNEGPOS1 Negative (Negative)
--- NOTE | 2025-03-20 13:37 | ED.URI ---
HPI - URI/Sore Throat General Chief Complaint: Upper Respiratory Infection Stated Complaint: NASAL DRAINAGE/HEADACHE Time Seen by Provider: 03/20/25 13:29 Source: patient and RN notes reviewed Mode of arrival: ambulatory Limitations: no limitations History of Present Illness HPI Narrative: 39-year-old female patient presents today with a 2 day history of postnasal drip leading to mild sore throat with a headache since yesterday. She has been taking ibuprofen with some relief and currently rates her pain 04/30. One of her sons has recently tested positive for strep throat. Related Data Home Medications ?Medication ?Instructions ?Recorded ?Confirmed ?Last Taken ?Type albuterol sulfate 90 mcg/actuation inhalation PRN 04/02/24 Unknown History aerosol inhaler tirzepatide (weight loss) subcut 03/20/25 Unknown History Allergies Allergy/AdvReac Type Severity Reaction Status Date / Time COVID-19 (SARS-CoV-2) Allergy Unknown Verified 03/20/25 13:14 vaccine, sondra Penicillins Allergy Unknown Verified 03/20/25 13:14 Sulfa (Sulfonamide Allergy Unknown Verified 03/20/25 13:14 Antibiotics) tetracycline Allergy Unknown Verified 03/20/25 13:14 PMFSH Comments At time of signature, I have reviewed and agree with nursing past medical, surgical, social and family history unless otherwise noted. Please see nursing chart for further information. There is no relevant family history pertinent to the presenting complaint Exam Narrative: GENERAL: Well-appearing, well-nourished, and in no acute distress. HEAD: Normocephalic, atraumatic. EYES: EOMI. No redness or drainage. Conjunctivae normal. ENT: Mucous membranes pink and moist. Nares clear. No rhinorrhea. Throat normal. Uvula midline. NECK: Normal AROM. Supple. No lymphadenopathy. CHEST: No respiratory distress. Clear to auscultation. HEART: Regular rate and rhythm. No murmur appreciated. EXTREMITIES: Normal range of motion. No edema. SKIN: Warm, dry, no rash. Capillary refill normal. Normal skin turgor. NEURO: No focal deficits. Alert and oriented x3. Gait steady. PSYCH: Normal affect. No signs of depression or anxiety. Course Course Level of Care: Express Care Visit Vital Signs Vital signs: Vital Signs Temperature 97.7 F 03/20/25 13:11 Pulse Rate 84 03/20/25 13:11 Respiratory Rate 16 03/20/25 13:11 Blood Pressure 130/86 03/20/25 13:11 Pulse Oximetry 98 03/20/25 13:11 Temperature 97.7 F 03/20/25 13:11 Pulse Rate 84 03/20/25 13:11 Respiratory Rate 16 03/20/25 13:11 Blood Pressure 130/86 03/20/25 13:11 Pulse Oximetry 98 03/20/25 13:11 Reviewed MDM - URI/Sore Throat MDM Narrative Medical decision making narrative: 39-year-old female patient presents today with a 2 day history of postnasal drip leading to mild sore throat with a headache since yesterday. She has been taking ibuprofen with some relief and currently rates her pain 04/30. One of her sons has recently tested positive for strep throat. Normal physical exam. Rapid strep negative. Culture pending. Symptoms likely viral in etiology. Discussed geqj-pud-otruqba medication use and duration of illness. No prescription medications indicated at this time. Anticipatory guidance given. Vital signs stable. Patient agrees with plan. Differential Diagnosis Differential diagnosis: Likely upper respiratory infection, otitis media, viral infection, pharyngitis and other (Strep throat) Lab Data Attestation: I reviewed the patient's lab results. Labs: Lab Results 03/20/25 Range/Units 13:19 POC Grp A Strep Screen Negative (Negative) Critical Care Time Critical Care Time Critical Care Time: No Discharge Plan Discharge Clinical Impression: Upper respiratory infection Qualifiers: URI type: unspecified URI Qualified Code(s): J06.9 - Acute upper respiratory infection, unspecified Patient Disposition: Home Condition: Stable Instructions: Upper Respiratory Infection (DC) Additional Instructions: Your rapid strep swab was negative today at [facility]. You will be notified in a few days if the culture comes back positive for strep, and appropriate antibiotics will be called in for you at that time. Your symptoms are likely due to a viral illness, which is not treated with antibiotics. Viral symptoms can be present for up to 7-10 days. Take Tylenol or ibuprofen for fever or pain. Consider starting Flonase for your postnasal drip. Rest and stay hydrated. Follow up with your PCP in 7 days if symptoms are not improving. Go to the ER immediately if you have any difficulty breathing or swallowing. Patient Language: Taiwanese Prescriptions: No Action albuterol sulfate 90 mcg/actuation HFA aerosol inhaler INHALATION PRN tirzepatide (weight loss) [Zepbound] subcut Follow-up/Referrals: Judson Ren MD [Primary Care Provider, Internal Medicine] Time of Disposition: 13:40
== END 2025-03-20 13:50 | disposition home or self-care (01) ==
PROVIDERS: Emergency Provider Nurse Practitioner; PCP Internal Medicine
DX: J06.9 Acute upper respiratory infection, unspecified (principal); K76.0 Fatty (change of) liver, not elsewhere classified
CPT/HCPCS: 87081; 87880; 99213; G0463